=== PATIENT | female | born 1930 | race Caucasian/White ===

== ENCOUNTER 2018-03-19 08:15 | Inpatient (IN) | payer BC ==
--- NOTE | 2018-03-19 09:05 | PDOC ---
Attending Attestation - HPI HPI: 03/19/18 09:31 CC: S/p fall HPI: The patient is a 87 year old female, with a significant past medical history of Afib (s/p pacemaker on Eliquis), sciatica, neuropathy, CAD, DM, HTN, and HLD, who presents to the emergency department s/p fall with, pain to the right hip and left wrist. As per patient, she was getting up out of bed this morning when she felt week in her bilateral lower extremities falling and subsequently hitting her head, right hip, and lacerating her left wrist. At this time, she experienced urinary incontinence is unaware if she lost consciousness. She denies any tongue biting. She denies recent fevers, chills, or dizziness. She denies recent nausea, vomit, diarrhea or constipation. She denies recent dysuria, frequency, urgency or hematuria. She denies recent chest pain or shortness of breath. Allergies: NKDA Past surgical history: S/p pacemaker. Hysterectomy. Social history: Nonsmoker. Denies EtOH use and recreational drug use. Primary Care Physician: Dr. Pinzon Commercial Banker: Dr. Khan - Physicial Exam PE: 03/19/18 11:23 Exam: Vitals: Triage Vital signs reviewed +General Appearance: Generalized weakness. no acute distress, well developed, Head: Atraumatic, normocephalic Nose: No nasal congestion Throat: Mucous membranes moist, Neck: Supple;No Nuchal rigidity Chest Wall: Nontender +Cardiac: Irregularly irregular, no murmurs, no rubs, no gallops, Lungs: Clear to auscultation bilateral, good air movement bilaterally, Abdomen: Soft, nondistended, normal bowel sounds, nontender to palpation Rectal: Exam deferred Extremities: Right hip tenderness. no cyanosis, clubbing, or edema +Skin: Semicircular laceration to the left wrist with bruising. Warm and dry, no rashes, no petechiae Neuro: AOX3; Cranial Nerves 2-12 grossly intact, Strength intact to all extremities, Sensation intact to all extremities Psych: normal mood, normal affect - Medical Decision Making 03/19/18 11:20 87 year old female with history of Afib (s/p pacemaker on Eliquis), CAD, DM, HTN , and HLD reports to the ED s/p fall with weakness, right hip pain, and left wrist laceration. Plan is to: CT- head and c-spine Pain meds Xray-wrist and hip Reassess Admit 11:30am Call placed to Dr. Pinzon's answering service, awaiting for Dr. Paz consulting practice director admitting doctor for patient's PCP. <Jeancarlos Ram - Last Filed: 03/19/18 11:31> - Resident Resident Name: Jammie Marinelli - ED Attending Attestation I have performed the following: I have examined & evaluated the patient, The case was reviewed & discussed with the resident, I agree w/resident's findings & plan, Exceptions are as noted - HPI HPI: 03/19/18 13:40 79 years old past medical history significant for a pad pacemaker on Alquist, right-sided sciatica neuropathy CAD diabetes hypertension hyperlipidemia presents with fall. Yesterday patient was complaining of increased pain to her right hip where she has known sciatica. This morning when she got up try to ambulate placed weight on right foot and it is believed secondary to pain fell injured her left wrist hit her head but is presenting predominately with generalized weakness was unable to get up from floor Laboratory analysis notable for urinary tract infection no acute findings on x- rays or imaging laceration repaired. See resident note. Given inability to transfer secondary to generalized weakness will admit the hospital for treatment of UTI hydration and further management. - Medical Decision Making 03/19/18 14:03 Urinalysis grossly positive head CT cervical spine CT with no acute pathology no acute pathology noted on hip x-ray Wrist x-ray not officially read there may be a subtle lucency patient placed in volar splint in case a fracture laceration repaired with sutures See resident note Given the patient's generalized weakness and inability to transfer from [facility] UTI increasing hip discomfort we will admit to medicine for further management. <Yan Riggs - Last Filed: 03/19/18 14:04> Heart Score/ECG Review - ECG Impressions Comment:: 03/19/18 14:04 EKG performed at 1020. Demonstrates atrial fibrillation no ST elevations or T- wave inversions. Interpreted by me. <Yan Riggs - Last Filed: 03/19/18 14:04> Attestations - Attestations 03/19/18 09:31 Documentation prepared by Jeancarlos Ram, acting as lead medical technologist for Yan Riggs MD. <Jeancarlos Ram - Last Filed: 03/19/18 11:31>
[2018-03-19 09:30] LABS: BASO % 0.6 % (0-2.0); EOS % 0.3 % (0-4.5); HEMATOCRIT 41.7 % (32.4-45.2); HEMOGLOBIN 13.9 GM/dL (10.7-15.3); MCH 29.1 pg (25.7-33.7); MCHC 33.4 g/dl (32.0-36.0); MEAN CELL VOLUME 87.1 fl (80-96); MEAN PLT VOLUME 9.9 fl (7.5-11.1); NEUT % 74.1 % (42.8-82.8); PLATELET COUNT 137 K/MM3 (134-434); RBC 4.79 M/mm3 (3.60-5.2); RDW 14.3 % (11.6-15.6); WHITE BLOOD COUNT 8.2 K/mm3 (4.0-10.0)
[2018-03-19 09:34] LABS: URINE APPEARANCE CLOUDY; URINE BILIRUBIN NEGATIVE (<2.0 mg/dL); URINE COLOR YELLOW; URINE GLUCOSE (UA) 1+ (NEGATIVE); URINE KETONE NEGATIVE (NEGATIVE); URINE LEUK ESTERASE 3+ (NEGATIVE); URINE NITRITE POSITIVE (NEGATIVE); URINE PROTEIN 1+ (NEGATIVE); URINE UROBILINOGEN NEGATIVE mg/dL (0.2-1.0)
--- NOTE | 2018-03-19 09:39 | PDOC ---
History of Present Illness - General Chief Complaint: Injury Stated Complaint: Injury Time Seen by Provider: 03/19/18 08:26 History Source: Patient, Sibling - History of Present Illness Initial Comments: 03/19/18 09:29 87F w/ pmhx of DM, HTN, HLD, DVT, A. fib s/p pacemaker placement, CAD presents to the ED s/p fall. Pt is present with sister at bedside. Pt states that at 6am she was getting up from her bed to go to the bathroom when she had fallen because of b/l leg weakness. She admits to hitting the back of her head, her R side of the body as well as her L wrist. She denies losing consciousness. After she had fallen, she called her sister for help because she was not able to get up herself. She denies any mechanical fall, headaches, dizziness, vision changes , chest pain, sob, abd pain, urinary/bowel symptoms, blood in urine/stool. Of note, per pt's sister, pt has a hx of multiple falls in the past. She was seen at [facility] a couple of months ago due to a fall. Additionally, the sister states she falls 1-2x/month, but is usually able to get up herself. She has been living alone in her house over the past month as her has been at rehab. PCP: Dr. Pinzon Cardio: Dr. Khan PMHx: DM, HTN, HLD, A. fib (s/p pacemaker on Eliquis), CAD PSHx: Hysterectomy, pacemaker FHx: Mother and sister- Breast cx Social: Denies tobacco, rec drug use; social drinker, Denies recent travel PE Gen: AAOx3 (person, place time), NAD HEENT: Atraumatic, EOMI, ROLO. Dry mucus membranes, dried blood noted in oral mucosa. Posterior neck point tenderness. Lungs: CTA B/L. Symmetric chest rise. Heart: RRR, normal S1, S2. No murmurs noted. Abd: Soft, NT/ND. +BS in all 4 Qs. No bruits/masses noted. MSK: 3x1cm laceration noted on dorsum of L wrist, bloody. 1+ dorsalis pedis pulses b/l. 2+ radial pulses b/l. Extremities: 5/5 strength b/l UE. 5/5 strength LLE. 3/5 strength RLE. Neuro: Facial symmetry noted. Facial muscles intact. B/l sensation in face and u /l b/l extremities intact. Unable to assess gait. Timing/Duration: 1 hour NIH Stroke Scale - Last Known Well Date/Time & Onset Date Last Known Well: 03/18/18 - Initial Evaluation Level of consciousness: Alert Ask patient the month and their age: Answers both correctly Ask patient to open & close eyes; make fist and let go: Obeys both correctly Best gaze (horizontal eye movement): Normal Visual field testing: No visual field loss Facial paresis (Show teeth/raise eyebrows/close eyes tight): Normal symmetrical movement Motor Function: Left Arm: Normal Motor Function: Right Arm: Normal (extends arm 90 (or 45) degrees for 10 seconds without drift Motor Function: Left Leg: Normal (extends leg 30 degrees for 5 seconds without drift) Motor Function: Right Leg: Some effort against gravity Limb Ataxia: No ataxia Sensory(Use pinprick test arms,legs,trunk,face/side to side): Normal Best language (Describe picture, name items, read sentences): No Aphasia Dysarthria (read several words): Mild to moderate slurring of words Extinction and Inattention: No abnormality - Total Score NIH Stroke Scale Score: 3 Past History - Past Medical History Allergies/Adverse Reactions: Allergies Allergy/AdvReac Type Severity Reaction Status Date / Time No Known Drug Allergies Allergy Verified 03/19/18 08:39 Home Medications: Ambulatory Orders Amlodipine Besylate [Norvasc -] 10 mg PO DAILY #30 tablet 01/01/15 Apixaban [Eliquis] 2.5 mg PO BID 03/19/18 Atorvastatin Ca [Lipitor] 40 mg PO HS 03/19/18 Carbidopa/Levodopa [Carbidopa-Levodopa 25-100 Tab] 1 each PO TID 03/19/18 Insulin Glargine,Hum.rec.anlog [Lantus] 30 unit SQ HS 03/19/18 Metoprolol Succinate [Toprol XL -] 75 mg PO BID 03/19/18 Oxybutynin Chloride 5 mg PO BID 03/19/18 Sitagliptin Phosphate [Januvia] 50 mg PO DAILY 03/19/18 COPD: No Diabetes: Yes HTN: Yes Hypercholesterolemia: Yes - Immunization History Immunization Up to Date: Yes - Suicide/Smoking/Psychosocial Hx Smoking Status: No Smoking History: Never smoked Have you smoked in the past 12 months: No Number of Cigarettes Smoked Daily: 0 Hx Alcohol Use: No Drug/Substance Use Hx: No Substance Use Type: None, Alcohol Hx Substance Use Treatment: No Review of Systems - Review of Systems Able to Perform ROS?: Yes Is the patient limited Greenlandic proficient: No Constitutional: Yes: Weakness. No: Chills, Fever HEENTM: Yes: Cataracts. No: Blurred Vision, Recent change in vision, Double Vision Respiratory: No: Orthopnea, Shortness of Breath, SOB with Exertion, SOB at Rest Cardiac (ROS): No: Chest Pain ABD/GI: Yes: Constipated. No: Diarrhea, Nausea, Vomiting *Physical Exam - Vital Signs Last Vital Signs Temp Pulse Resp BP Pulse Ox 97.5 F L 77 18 160/99 98 03/19/18 08:41 03/19/18 08:41 03/19/18 08:41 03/19/18 08:41 03/19/18 08:41 ED Treatment Course - LABORATORY CBC & Chemistry Diagram: 03/19/18 09:00 03/19/18 09:00 Medical Decision Making - Medical Decision Making S/P Fall, ddx includes infection vs. toxic metabolic syndrome vs. sciatica vs. stroke -Head CT, CT C-spine, L wrist xray, R hip/pel xray, CMP, Urine cx, Mag, U/A, EKG 03/19/18 10:22 -Head CT neg for acute IC pathology. -C-spine showed no gross fx or subluxation; R facet hypertrophy at C4-C5, C5-C6 , C6-C7. Prominent dense calcified plaques at the common carotid bifurcation, bilaterally. -R hip xray showed no sign of gross fracture or subluxation, no sign of blastic or lytic changes. NIHSS 3. Pt has no facial droop, but demonstrates weakness in R leg. Per daughter, pt has hx of sciatica and generalized leg weakness, was recently given Sinemet by pcp. 03/19/18 10:58 U/A showed 3+ LE, 52 WBCs, Ceftriaxone 1 gm given to treat UTI. Contacted Dr. Pinzon to admit patient, awaiting call. 03/19/18 11:[address] Pinzon, made aware of patient. Will admit to inpatient med-surg. 03/19/18 12:12 *DC/Admit/Observation/Transfer Diagnosis at time of Disposition: Laceration of wrist, left Qualifiers: Encounter type: initial encounter Qualified Code(s): S61.512A - Laceration without foreign body of left wrist, initial encounter - Referrals - Patient Instructions - Post Discharge Activity
[2018-03-19 09:40] LABS: INR 1.11 (0.83-1.09); PROTHROMBIN TIME (PATIENT) 13.1 SEC (9.7-13.0)
[2018-03-19 09:43] LABS: ACTIVATED PTT 27.3 SECONDS (25.2-36.5)
[2018-03-19 09:55] LABS: EPI CELLS RARE /HPF (FEW); URINE BACTERIA MANY /hpf (NONE SEEN)
[2018-03-19 10:38] LABS: ALK PHOS 72 U/L (45-117); ANION GAP 11 MMOL/L (8-16); BILIRUBIN,TOTAL 0.6 mg/dL (0.2-1); BLOOD UREA NITROGEN 18 mg/dL (7-18); CALCIUM 8.3 mg/dL (8.5-10.1); CHLORIDE 111 mmol/L (98-107); CO2 24 mmol/L (21-32); CREATININE 0.9 mg/dL (0.55-1.3); GLUCOSE,RANDOM 196 mg/dL (74-106); MAGNESIUM 1.6 mg/dL (1.8-2.4); POTASSIUM 3.8 mmol/L (3.5-5.1); SGOT/AST 21 U/L (15-37); SGPT/ALT 26 U/L (13-61); SODIUM 146 mmol/L (136-145); TOT PROT 6.5 g/dl (6.4-8.2)
[2018-03-19] MEDS ORDERED: ACETAMINOPHEN 325 MG TABLET (FP) PO ONE (10:59)
[2018-03-19] MEDS ORDERED: ACETAMINOPHEN 325 MG TABLET (FP) ONE (11:12)
[2018-03-19] MEDS ORDERED: CEFTRIAXONE 1,000 MG in DEXTROSE 5%-WATER - 50 ML IVPB ONE (11:20)
[2018-03-19] MEDS ORDERED: CEFTRIAXONE 1 GM/50 ML BAG ONE (11:42)
[2018-03-19] MEDS ORDERED: DIPHTH,PERTUSS(ACELL),TET 0.5 ML DISP.SYRIN IM ONE (11:51)
--- NOTE | 2018-03-19 13:13 | PDOC ---
*Physical Exam - Vital Signs Last Vital Signs Temp Pulse Resp BP Pulse Ox 97.5 F L 77 18 160/99 98 03/19/18 08:41 03/19/18 08:41 03/19/18 08:41 03/19/18 08:41 03/19/18 08:41 ED Treatment Course - LABORATORY CBC & Chemistry Diagram: 03/19/18 09:00 03/19/18 09:00 - ADDITIONAL ORDERS Additional order review: Laboratory Results 03/19/18 03/19/18 03/19/18 09:05 09:00 09:00 PT with INR 13.10 H INR 1.11 H PTT (Actin FS) 27.3 Sodium 146 H Potassium 3.8 Chloride 111 H Carbon Dioxide 24 Anion Gap 11 BUN 18 Creatinine 0.9 Creat Clearance w eGFR 59.09 Random Glucose 196 H Calcium 8.3 L Magnesium 1.6 L Total Bilirubin 0.6 AST 21 ALT 26 Alkaline Phosphatase 72 Total Protein 6.5 Albumin 3.0 L Urine Color Yellow Urine Appearance Cloudy Urine pH 5.0 Ur Specific Bland 1.017 Urine Protein 1+ H Urine Glucose (UA) 1+ H Urine Ketones Negative Urine Blood 2+ H Urine Nitrite Positive Urine Bilirubin Negative Urine Urobilinogen Negative Ur Leukocyte Esterase 3+ H Urine WBC (Auto) 52 Urine RBC (Auto) 3 Ur Epithelial Cells Rare Urine Bacteria Many 03/19/18 09:00 RBC 4.79 MCV 87.1 MCHC 33.4 RDW 14.3 MPV 9.9 Neutrophils % 74.1 Lymphocytes % 18.0 Monocytes % 7.0 Eosinophils % 0.3 D Basophils % 0.6 - Medications Given in the ED: ED Medications Discontinued Medications Generic Name Dose Route Start Last Admin Trade Name Maneq PRN Reason Stop Dose Admin Acetaminophen 650 mg 03/19/18 10:59 03/19/18 11:40 Tylenol - PO 03/19/18 11:00 650 mg ONCE ONE Administration Diphtheria/Tetanus/Acell Pertussis 0.5 ml 03/19/18 11:51 03/19/18 13:06 Boostrix - IM 03/19/18 11:52 0.5 ml .ONCE ONE Administration Ceftriaxone Sodium 1,000 mg/ 50 mls @ 100 mls/hr 03/19/18 11:20 03/19/18 11: 46 Dextrose IVPB 03/19/18 11:49 100 mls/hr ONCE ONE Administration Medical Decision Making - Medical Decision Making I completed the laceration repair on the dorsal L wrist. 11 sutures were placed using sterile technique, the wound was dressed, and the bleeding controlled. Please see procedure note. 03/19/18 13:24 *DC/Admit/Observation/Transfer Diagnosis at time of Disposition: Laceration of wrist, left Qualifiers: Encounter type: initial encounter Qualified Code(s): S61.512A - Laceration without foreign body of left wrist, initial encounter - Referrals - Patient Instructions - Post Discharge Activity Procedures - Laceration/Wound Repair Left Dorsal Wrist Wound Length: 2.6 to 5.0 cm Wound Explored: clean Wound's Depth, Shape: superficial, flap Irrigated w/ Saline: Yes Betadine Prep: Yes Anesthesia: 1% Lidocaine w/ Epi Amount of Anesthetic (ccs): 4 Wound Debrided: minimal Wound Repaired With: Sutures Suture Size/Type: 4:0 Number of Sutures: 11 Layer Closure: No Sterile Dressing Applied: Yes Splint Applied: No Sling Applied: No Progress: Strength, sensation, and pulses intact before and after suture placement. Wound is cleaned with sterile dressing and bacitracin applied. Bleeding well controlled. 03/19/18 13:28
[2018-03-19] MEDS ORDERED: MAGNESIUM SULF 50% (8.12 MEQ/2 ML-1 GM VIAL) IVPB ONE (13:45)
--- NOTE | 2018-03-19 15:48 | CON.ID ---
Consult Consult Specialty:: infectious disease Referred by:: marcin Reason for Consultation:: UTI - History of Present Illness Chief Complaint: felt weak and fell History of Present Illness: not clear if she had LOC no fevers or chills no dysuria currently living alone is in SNF - History Source History Provided By: Patient, Medical Record Limitations to Obtaining History: Clinical Condition - Past Medical History TELEPHONE STATION INSTALLER: Yes: Peripheral Neuropathy, Parkinson's, Other (sciatica) Cardio/Vascular: Yes: AFIB, CAD, HTN, Hyperlipdemia Endocrine: Yes: Diabetes Mellitus - Past Surgical History Past Surgical History: Yes: Hysterectomy, Permanent Pacemaker - Alcohol/Substance Use Hx Alcohol Use: No - Smoking History Smoking history: Never smoked Have you smoked in the past 12 months: No Aproximately how many cigarettes per day: 0 - Social History Usual Living Arrangement: With Spouse ADL: Independent History of Recent Travel: No Home Medications - Allergies Allergies/Adverse Reactions: Allergies Allergy/AdvReac Type Severity Reaction Status Date / Time No Known Drug Allergies Allergy Verified 03/19/18 08:39 - Home Medications Home Medications: Ambulatory Orders Amlodipine Besylate [Norvasc -] 10 mg PO DAILY #30 tablet 01/01/15 Apixaban [Eliquis] 2.5 mg PO BID 03/19/18 Atorvastatin Ca [Lipitor] 40 mg PO HS 03/19/18 Carbidopa/Levodopa [Carbidopa-Levodopa 25-100 Tab] 1 each PO TID 03/19/18 Insulin Glargine,Hum.rec.anlog [Lantus] 30 unit SQ HS 03/19/18 Metoprolol Succinate [Toprol XL -] 75 mg PO BID 03/19/18 Oxybutynin Chloride 5 mg PO BID 03/19/18 Sitagliptin Phosphate [Januvia] 50 mg PO DAILY 03/19/18 Family Disease History - Family Disease History Family History: Unable to Obtain Review of Systems - Review of Systems Constitutional: denies: Chills, Fever HENT: reports: No Symptoms Cardiovascular: denies: Chest Pain Respiratory: denies: Cough Genitourinary: denies: Burning, Discharge, Dysuria, Flank Pain Physical Exam Vital Signs: Vital Signs Temperature 97.8 F 03/19/18 15:05 Pulse Rate 84 03/19/18 15:05 Respiratory Rate 18 03/19/18 15:05 Blood Pressure 153/85 03/19/18 15:05 O2 Sat by Pulse Oximetry (%) 97 03/19/18 15:05 Constitutional: Yes: No Distress, Calm Eyes: Yes: Conjunctiva Clear HENT: Yes: Atraumatic, Normocephalic Neck: Yes: Supple Cardiovascular: Yes: Regular Rate and Rhythm Respiratory: Yes: Regular Gastrointestinal: Yes: Normal Bowel Sounds Musculoskeletal: Yes: WNL Extremities: Yes: WNL Edema: No Psychiatric: Yes: Alert Labs: CBC, BMP 03/19/18 09:00 03/19/18 09:00 cultures pending Imaging - Results Chest X-ray: Report Reviewed, Image Reviewed Problem List - Problems (1) Frequent falls Code(s): R29.6 - REPEATED FALLS (2) UTI (urinary tract infection) Code(s): N39.0 - URINARY TRACT INFECTION, SITE NOT SPECIFIED Assessment/Plan no fevers or chills noted pyurina awake and alert approppriate continue rocephin until cultures are back- if negative can d/c
[2018-03-19] MEDS: INSULIN SLIDING SCALE (NOVOLOG) 1 VIAL SQ SCH ×2 (16:35→21:25)
[2018-03-19] MEDS: CARBIDOPA/LEVODOPA 25/100 TABLET (FP) PO SCH ×2 (17:33→21:23)
[2018-03-19] MEDS ORDERED: INSULIN (NOVOLOG) ASPART 100 UNITS/ML 10ML VIAL ONE (21:01)
[2018-03-19] MEDS: APIXABAN 2.5 MG TABLET PO SCH (21:24)
[2018-03-19] MEDS: OXYBUTYNIN CHLORIDE 5 MG TABLET PO SCH (21:24)
[2018-03-19] MEDS: INSULIN (LEVEMIR) 100 UNITS/ML UNITS SQ SCH (21:24)
[2018-03-19] MEDS: ATORVASTATIN CA 20 MG TABLET (FP) PO SCH (21:24)
[2018-03-20] MEDS: ACETAMINOPHEN 325 MG TABLET (FP) PO PRN ×3 (00:13→21:11)
[2018-03-20] MEDS: sitaGLIPtin PHOSPHATE 50 MG TABLET PO SCH (06:29)
[2018-03-20] MEDS: INSULIN SLIDING SCALE (NOVOLOG) 1 VIAL SQ SCH ×4 (06:29→21:14)
[2018-03-20] MEDS: CARBIDOPA/LEVODOPA 25/100 TABLET (FP) PO SCH ×3 (06:29→21:09)
[2018-03-20 08:36] LABS: HEMATOCRIT 38.9 % (32.4-45.2); HEMOGLOBIN 12.7 GM/dL (10.7-15.3); LYMPH % 28.8 % (8-40); MCH 28.5 pg (25.7-33.7); MCHC 32.7 g/dl (32.0-36.0); MEAN CELL VOLUME 87.3 fl (80-96); MEAN PLT VOLUME 10.4 fl (7.5-11.1); MONO % 9.4 % (3.8-10.2); NEUT % 59.8 % (42.8-82.8); PLATELET COUNT 140 K/MM3 (134-434); RBC 4.46 M/mm3 (3.60-5.2); RDW 14.3 % (11.6-15.6); WHITE BLOOD COUNT 6.1 K/mm3 (4.0-10.0)
[2018-03-20 09:11] LABS: ALBUMIN 2.6 g/dl (3.4-5.0); ALK PHOS 67 U/L (45-117); ANION GAP 7 MMOL/L (8-16); BILIRUBIN,TOTAL 0.6 mg/dL (0.2-1); BLOOD UREA NITROGEN 17 mg/dL (7-18); CALCIUM 8.1 mg/dL (8.5-10.1); CHLORIDE 112 mmol/L (98-107); CO2 24 mmol/L (21-32); CREATININE 0.9 mg/dL (0.55-1.3); GLUCOSE,RANDOM 99 mg/dL (74-106); MAGNESIUM 1.9 mg/dL (1.8-2.4); POTASSIUM 3.6 mmol/L (3.5-5.1); SGOT/AST 18 U/L (15-37); SGPT/ALT 8 U/L (13-61); SODIUM 142 mmol/L (136-145); TOT PROT 5.9 g/dl (6.4-8.2)
[2018-03-20] MEDS ORDERED: cefTRIAXone SODIUM 1 GM VIAL ONE (09:41)
[2018-03-20] MEDS ORDERED: DEXTROSE 5%-WATER - 50 ML IVPB ONE (09:42)
[2018-03-20] MEDS: CEFTRIAXONE 1 GM in DEXTROSE 5%-WATER - 50 ML IVPB SCH (09:54)
[2018-03-20] MEDS: amLODIPine BESYLATE 10 MG TABLET (FP) PO SCH (09:55)
[2018-03-20] MEDS: OXYBUTYNIN CHLORIDE 5 MG TABLET PO SCH ×2 (09:55→21:09)
[2018-03-20] MEDS: metoPROLOL SUCCINATE 25 MG TAB.SR.24H (FP) PO SCH (09:55)
[2018-03-20] MEDS: APIXABAN 2.5 MG TABLET PO SCH ×2 (09:56→21:09)
--- NOTE | 2018-03-20 13:47 | PN ---
Progress Note, Physician Chief Complaint: Frequent falls History of Present Illness: NAD Seen by ID On IV abx UC negative- d/c abx afebrile WBC normal - Current Medication List Current Medications: Active Medications Acetaminophen (Tylenol -) 650 mg PO Q6H PRN PRN Reason: PAIN OR FEVER Last Admin: 03/20/18 10:33 Dose: 650 mg Amlodipine Besylate (Norvasc -) 10 mg PO DAILY [facility] Last Admin: 03/20/18 09:55 Dose: 10 mg Apixaban (Eliquis -) 2.5 mg PO BID [facility] Last Admin: 03/20/18 09:56 Dose: 2.5 mg Atorvastatin Calcium (Lipitor -) 40 mg PO HS [facility] Last Admin: 03/19/18 21:24 Dose: 40 mg Carbidopa/Levodopa (Sinemet 25/100 -) 1 each PO TID [facility] Last Admin: 03/20/18 06:29 Dose: 1 each Ceftriaxone Sodium 1 gm/ (Dextrose) 50 mls @ 100 mls/hr IVPB DAILY [facility]; Protocol Last Admin: 03/20/18 09:54 Dose: 100 mls/hr Insulin Aspart (Novolog Vial Sliding Scale -) 1 vial SQ ACHS [facility]; Protocol Last Admin: 03/20/18 11:52 Dose: 2 units Insulin Detemir (Levemir Vial) 30 units SQ HS [facility] Last Admin: 03/19/18 21:24 Dose: 30 units Metoprolol Succinate (Toprol Xl -) 75 mg PO DAILY [facility] Last Admin: 03/20/18 09:55 Dose: 75 mg Oxybutynin Chloride (Ditropan -) 5 mg PO BID [facility] Last Admin: 03/20/18 09:55 Dose: 5 mg Sitagliptin Phosphate (Januvia -) 50 mg PO 0700 [facility] Last Admin: 03/20/18 06:29 Dose: 50 mg - Objective Vital Signs: Vital Signs Temperature 97.5 F L 03/20/18 10:40 Pulse Rate 90 03/20/18 10:40 Respiratory Rate 22 H 03/20/18 10:40 Blood Pressure 136/67 03/20/18 10:40 O2 Sat by Pulse Oximetry (%) 95 03/20/18 10:40 Constitutional: Yes: Well Nourished, No Distress, Calm Cardiovascular: Yes: Regular Rate and Rhythm Respiratory: Yes: Regular Gastrointestinal: Yes: Normal Bowel Sounds, Soft Musculoskeletal: Yes: Muscle Weakness Edema: No Peripheral Pulses WNL: Yes Neurological: Yes: Alert, Oriented Psychiatric: Yes: Alert, Oriented Labs: CBC, BMP 03/20/18 07:16 03/20/18 07:16 INR, PTT INR 1.11 (0.83-1.09) H 03/19/18 09:00 Problem List - Problems (1) Weakness Assessment/Plan: -Physicatry and Neurology consult -EMG BLLE -Lumbar spine MRI -B12, Thyroid profile okay Code(s): R53.1 - WEAKNESS (2) Frequent falls Assessment/Plan: CT head upon admission negative -Physicatry and Neurology consult -EMG BLLE -Lumbar spine MRI w/o contrast ordered -B12, Thyroid profile okay -Seen by Cardiology -U/S carotid unremarkable -Echo pending -Previous MRI in 2015: L3-L4. Chronic discogenic disease, degenerative changes, compromising the spinal canal, bilateral neural foramina (let > right) Clinically correlate with radiculopathy in the distribution of the bilateral L3 nerve roots. -Previous CT lumbar spine in 2011: Mild levoscoliosis of the lumbar spine with likely large hemangioma within L3 vertebral body. Mild anterior wedging/compression of L4 vertebral body without gross subluxation or retropulsion of its posterior margin. Mild to moderate disc bulge at L3-L4 level with moderate degenerative central spinal canal stenosis , moderate narrowing of the right and mild narrowing of the left foramen. Code(s): R29.6 - REPEATED FALLS (3) Lumbar radiculopathy Assessment/Plan: -Physicatry and Neurology consult -EMG BLLE -Lumbar spine MRI Code(s): M54.16 - RADICULOPATHY, LUMBAR REGION (4) Diabetes Assessment/Plan: -BGM ACHS -Diabetic diet -Increase Januvia to 100 mg po daily -On levemir and Novolog sliding scale -Endocrinology consult -RD consult Code(s): E11.9 - TYPE 2 DIABETES MELLITUS WITHOUT COMPLICATIONS (5) Afib Assessment/Plan: -On eliquis 2.5 mg po BID -Seen by Cardiology -Also has PPM Code(s): I48.91 - UNSPECIFIED ATRIAL FIBRILLATION (6) HTN (hypertension) Assessment/Plan: -Low sodium diabetic diet Code(s): I10 - ESSENTIAL (PRIMARY) HYPERTENSION Assessment/Plan see problem list Physical therapy
[2018-03-20] MEDS: GABAPENTIN 100 MG CAPSULE (FP) PO SCH ×2 (14:20→21:09)
--- NOTE | 2018-03-20 15:05 | EKG ---
Test Reason : Blood Pressure : / mmHG Vent. Rate : 072 BPM Atrial Rate : 066 BPM P-R Int : 000 ms QRS Dur : 072 ms QT Int : 430 ms P-R-T Axes : 000 -15 -02 degrees QTc Int : 470 ms UNDETERMINED RHYTHM Confirmed by MD Felix Edward ([id number]) on 03/20/2018 3:05:47 PM Referred By: Confirmed By:Wilfrido Felix MD
[2018-03-20] MEDS ORDERED: INSULIN (NOVOLOG) ASPART 100 UNITS/ML 10ML VIAL ONE (15:32)
[2018-03-20] MEDS: ATORVASTATIN CA 20 MG TABLET (FP) PO SCH (21:09)
[2018-03-20] MEDS: INSULIN (LEVEMIR) 100 UNITS/ML UNITS SQ SCH (21:18)
[2018-03-20] MEDS ORDERED: PT OWN MED DRAWER 7, Y5N ONE (22:10)
[2018-03-20] MEDS: CLOTRIMAZOLE/BETAMET DIPROP 15 GM TUBE TP SCH (22:11)
[2018-03-21] MEDS: INSULIN SLIDING SCALE (NOVOLOG) 1 VIAL SQ SCH ×4 (06:28→22:37)
[2018-03-21] MEDS: sitaGLIPtin PHOSPHATE 50 MG TABLET PO SCH (06:28)
[2018-03-21] MEDS: GABAPENTIN 100 MG CAPSULE (FP) PO SCH ×3 (06:28→22:35)
[2018-03-21] MEDS: CARBIDOPA/LEVODOPA 25/100 TABLET (FP) PO SCH ×3 (06:28→22:35)
[2018-03-21 07:29] LABS: CHOLESTEROL 101 mg/dL (50-200); HDL CHOLESTEROL 34 mg/dL (40-60); TRIGLYCERIDES 161 mg/dL (0-150)
[2018-03-21] MEDS ORDERED: PT OWN MED DRAWER 7, Y5N ONE (09:35)
[2018-03-21] MEDS ORDERED: cefTRIAXone SODIUM 1 GM VIAL ONE (09:35)
[2018-03-21] MEDS ORDERED: DEXTROSE 5%-WATER - 50 ML IVPB ONE (09:35)
--- NOTE | 2018-03-21 09:35 | CON.CARD ---
Consult Consult Specialty:: cardio - History of Present Illness Chief Complaint: fall History of Present Illness: 87 F here s/p fall. stood up at home and bilateral legs felt weak--fell to ground. thinks she hit her head. CHRONIC LE WEAKNESS FOR MANY MONTHS TO ? > 1 YR as outpatient, seeing dr burch for this. cannot recall when last fall was but says this is not first--not certain any recent falls prior to this. CT head in ER no acute pathology incl no bleed denies cp, sob, palpitations, syncope PMH: CAD Afib PPM Ao stenosis HTN HPL DM - Past Medical History Cardio/Vascular: Yes: HTN, Hyperlipdemia - Past Surgical History Past Surgical History: Yes: None - Alcohol/Substance Use Hx Alcohol Use: No - Smoking History Smoking history: Never smoked Have you smoked in the past 12 months: No Aproximately how many cigarettes per day: 0 - Social History Usual Living Arrangement: With Child ADL: Independent Home Medications - Allergies Allergies/Adverse Reactions: Allergies Allergy/AdvReac Type Severity Reaction Status Date / Time No Known Drug Allergies Allergy Verified 03/19/18 08:39 - Home Medications Home Medications: Ambulatory Orders Amlodipine Besylate [Norvasc -] 10 mg PO DAILY #30 tablet 01/01/15 Apixaban [Eliquis] 2.5 mg PO BID 03/19/18 Atorvastatin Ca [Lipitor] 40 mg PO HS 03/19/18 Carbidopa/Levodopa [Carbidopa-Levodopa 25-100 Tab] 1 each PO TID 03/19/18 Insulin Glargine,Hum.rec.anlog [Lantus] 30 unit SQ HS 03/19/18 Metoprolol Succinate [Toprol XL -] 75 mg PO BID 03/19/18 Oxybutynin Chloride 5 mg PO BID 03/19/18 Sitagliptin Phosphate [Januvia] 50 mg PO DAILY 03/19/18 Family Disease History - Family Disease History Family History: Denies (no known cmp) Review of Systems - Review of Systems Constitutional: denies: Chills, Fever Eyes: denies: Eye Pain HENT: denies: Nasal Congestion Neck: denies: Stiffness Cardiovascular: denies: Palpitations Respiratory: denies: Orthopnea, PND Gastrointestinal: denies: Diarrhea, Rectal Bleeding Genitourinary: denies: Burning, Hematuria Musculoskeletal: denies: Muscle Pain Integumentary: denies: Rash Neurological: denies: Numbness, Seizure, Syncope Endocrine: denies: Excessive Sweating Hematology/Lymphatic: denies: Excessive Bleeding Vital Signs: Vital Signs Temperature 98.3 F 03/21/18 06:00 Pulse Rate 77 03/21/18 06:00 Respiratory Rate 18 03/21/18 06:00 Blood Pressure 142/75 03/21/18 06:00 O2 Sat by Pulse Oximetry (%) 95 03/20/18 10:40 Constitutional: Yes: Well Nourished, No Distress Eyes: No: Sclera Icterus HENT: No: Nasal Congestion Neck: No: Decreased ROM Respiratory: Yes: CTA Bilaterally. No: Accessory Muscle Use, Rales, Wheezes Gastrointestinal: Yes: Normal Bowel Sounds. No: Distention, Hepatomegaly, Palpable Mass, Tenderness Cardiovascular: Yes: Regular Rate and Rhythm JVD: No Carotid Bruit: No PMI: Non-Displaced Heart Sounds: Yes: S1, S2. No: Gallop Murmur: Yes: Systolic Murmur (3/6 NAHMOY LUSB no S2 split heard). No: Diastolic Murmur Musculoskeletal: Yes: Other (No kyphosis) Extremities: No: Cold, Cyanosis Edema: No Peripheral Pulses: 2+ Left Carotid, 2+ Right Carotid, 2+ Left Doralis Pedis, 2+ Right Dorsalis Pedis Integumentary: No: Jaundice Neurological: Yes: Alert, Oriented (x3) Psychiatric: No: Agitated - Other Data Labs, Other Data: CBC, BMP 03/20/18 07:16 03/20/18 07:16 INR, PTT INR 1.11 (0.83-1.09) H 03/19/18 09:00 Laboratory Tests 12/22/14 12/22/14 12/22/14 12:47 13:44 13:44 WBC Hgb Plt Count Sodium Potassium Carbon Dioxide BUN 44 H Creatinine 1.8 H Hemoglobin A1c % AST ALT Troponin I 2.04 H* 1.99 H* Triglycerides Cholesterol Total LDL Cholesterol HDL Cholesterol TSH 1.74 D 12/22/14 12/23/14 03/19/18 16:15 05:20 15:45 WBC Hgb Plt Count Sodium 142 Potassium 4.2 Carbon Dioxide BUN 39 H Creatinine 1.3 D Hemoglobin A1c % AST ALT Troponin I 1.84 H* 0.02 Triglycerides Cholesterol Total LDL Cholesterol HDL Cholesterol TSH 03/20/18 03/20/18 03/21/18 07:16 07:16 05:55 WBC 6.1 Hgb 12.7 Plt Count 140 Sodium 142 Potassium 3.6 Carbon Dioxide 24 BUN 17 Creatinine 0.9 Hemoglobin A1c % AST 18 ALT 8 L Troponin I < 0.02 Triglycerides 161 H Cholesterol 101 Total LDL Cholesterol 53 HDL Cholesterol 34 L TSH 03/21/18 05:55 WBC Hgb Plt Count Sodium Potassium Carbon Dioxide BUN Creatinine Hemoglobin A1c % 9.7 H AST ALT Troponin I Triglycerides Cholesterol Total LDL Cholesterol HDL Cholesterol TSH Assessment/Plan ECG: afib, ? regularized s/p fall: -chronic bilat LE weakness--NOT NEW (and did not improve with prolonged holiday off statin in past) -per dr burch's team afib: -? regularized afib on ECG from ER. no bradycardia. pt not on digoxin at home as per my recollection, and not on home med list in ER -has PPM in place to prevent bradycardia -cont home toprol regimen -CHADS VASC 6, hi risk for stroke. on eliquis at home--dose needs confirmation ( 5mg bid dose indicated here, not 2.5). -states she hit her head, CT head neg, no neuro deficits--d/w'd sarah bauer will continue AC. -i am not aware of recurrent falls recently (despite chronic LE weakness). need to clarify with dtr as pt lacks accurate short-term recall she says. rec PT eval for gait instability/falls risk--once pt evaluated by PT and/or goes to rehab, if felt to be high falls risk will need to reconsider AC CAD: -anginal episode in hosp few years ago when rapid AF, with ischemia on MPI then -has been asymptomatic on med mgmt regimen, with good AF control -cont home meds Ao stenosis: -recent outpt echo with evidence of progression to probably severe -she has been asymptomatic, with no CHF--TAVR not indicated -cont routine outpt observation with me HTN: -controlled bp's here -cont home meds DM: -per primary team
[2018-03-21] MEDS: amLODIPine BESYLATE 10 MG TABLET (FP) PO SCH (09:37)
[2018-03-21] MEDS: metoPROLOL SUCCINATE 25 MG TAB.SR.24H (FP) PO SCH (09:38)
[2018-03-21] MEDS: OXYBUTYNIN CHLORIDE 5 MG TABLET PO SCH ×2 (09:38→22:35)
[2018-03-21] MEDS: CEFTRIAXONE 1 GM in DEXTROSE 5%-WATER - 50 ML IVPB SCH (09:38)
[2018-03-21] MEDS: APIXABAN 2.5 MG TABLET PO SCH (09:38)
[2018-03-21] MEDS: CLOTRIMAZOLE/BETAMET DIPROP 15 GM TUBE TP SCH ×2 (09:43→22:38)
[2018-03-21] MEDS ORDERED: sitaGLIPtin PHOSPHATE 50 MG TABLET PO SCH (11:30)
[2018-03-21] MEDS: ATORVASTATIN CA 20 MG TABLET (FP) PO SCH ×2 (12:35→22:35)
[2018-03-21] MEDS: APIXABAN 5 MG TABLET PO SCH ×2 (12:36→22:35)
[2018-03-21] MEDS: INSULIN (LEVEMIR) 100 UNITS/ML UNITS SQ SCH (22:35)
[2018-03-21] MEDS: ACETAMINOPHEN 325 MG TABLET (FP) PO PRN (22:45)
[2018-03-22] MEDS: GABAPENTIN 100 MG CAPSULE (FP) PO SCH ×3 (06:31→22:06)
[2018-03-22] MEDS: CARBIDOPA/LEVODOPA 25/100 TABLET (FP) PO SCH ×3 (06:31→22:07)
[2018-03-22] MEDS: sitaGLIPtin PHOSPHATE 100 MG TABLET (FP) PO SCH (06:31)
[2018-03-22] MEDS: ACETAMINOPHEN 325 MG TABLET (FP) PO PRN ×3 (06:33→22:07)
[2018-03-22] MEDS: INSULIN SLIDING SCALE (NOVOLOG) 1 VIAL SQ SCH ×3 (06:41→17:18)
--- NOTE | 2018-03-22 09:57 | CONSULT ---
Consult - text type - Consultation Consultation Note: Neurology History of Present Illness 87F w/ pmhx of DM, HTN, HLD, DVT, A. fib s/p pacemaker placement, CAD presented to the ED s/p fall. Reportedly on day of admission, was getting up from her bed to go to the bathroom when she had fallen because of b/l leg weakness. She admited to hitting the back of her head, her R side of the body as well as her L wrist per notes. She denied losing consciousness. After she had fallen, she called her sister for help because she was not able to get up herself. She denied headaches, dizziness, vision changes, chest pain, sob, abd pain, urinary/ bowel symptoms, blood in urine/stool. Reportedly, per pt's sister, has a hx of multiple falls in the past. She was seen at [facility] a couple of months ago due to a fall. Additionally, the sister states she falls 1-2x/month, but is usually able to get up herself. She has been living alone in her house over the past month as her has been at rehab. While admitted, she completed noncontrast head CT which did not show any acute changes. Additionally, she completed carotid Dopplers which were also negative as well as CT of the cervical spine which did not show any fractures or subluxations. She does have underlying Parkinson's disease for which she is on Sinemet. She has been ordered for EMG/nerve conduction study which are to be completed this morning. Past History - Past Medical History Allergies/Adverse Reactions: Allergies Allergy/AdvReac Type Severity Reaction Status Date / Time No Known Drug Allergies Allergy Verified 03/19/18 08:39 Home Medications: Ambulatory Orders Amlodipine Besylate [Norvasc -] 10 mg PO DAILY #30 tablet 01/01/15 Apixaban [Eliquis] 2.5 mg PO BID 03/19/18 Atorvastatin Ca [Lipitor] 40 mg PO HS 03/19/18 Carbidopa/Levodopa [Carbidopa-Levodopa 25-100 Tab] 1 each PO TID 03/19/18 Insulin Glargine,Hum.rec.anlog [Lantus] 30 unit SQ HS 03/19/18 Metoprolol Succinate [Toprol XL -] 75 mg PO BID 03/19/18 Oxybutynin Chloride 5 mg PO BID 03/19/18 Sitagliptin Phosphate [Januvia] 50 mg PO DAILY 03/19/18 PMHx: DM, HTN, HLD, A. fib (s/p pacemaker on Eliquis), CAD PSHx: Hysterectomy, pacemaker FHx: Mother and sister- Breast cx Social: Denies tobacco, rec drug use; social drinker, Denies recent travel COPD: No Diabetes: Yes HTN: Yes Hypercholesterolemia: Yes - Immunization History Immunization Up to Date: Yes - Suicide/Smoking/Psychosocial Hx Smoking Status: No Smoking History: Never smoked Have you smoked in the past 12 months: No Number of Cigarettes Smoked Daily: 0 Hx Alcohol Use: No Drug/Substance Use Hx: No Substance Use Type: None, Alcohol Hx Substance Use Treatment: No Review of Systems - Review of Systems Able to Perform ROS?: Yes Is the patient limited Armenian proficient: No Constitutional: Yes: Weakness. No: Chills, Fever HEENTM: Yes: Cataracts. No: Blurred Vision, Recent change in vision, Double Vision Respiratory: No: Orthopnea, Shortness of Breath, SOB with Exertion, SOB at Rest Cardiac (ROS): No: Chest Pain ABD/GI: Yes: Constipated. No: Diarrhea, Nausea, Vomiting *Physical Exam Vital Signs Period Temp Pulse Resp BP Sys/Padgett Pulse Ox Last 24 Hr 98.8 F-99.5 F 81-103 20-22 128-149/76-83 95 Gen: AAOx3 (person, place time), NAD HEENT: Atraumatic, EOMI, ROLO. Dry mucus membranes, dried blood noted in oral mucosa. Posterior neck point tenderness. Lungs: CTA B/L. Symmetric chest rise. Heart: RRR, normal S1, S2. No murmurs noted. Abd: Soft, NT/ND. +BS in all 4 Qs. No bruits/masses noted. MSK: 3x1cm laceration noted on dorsum of L wrist, bloody. 1+ dorsalis pedis pulses b/l. 2+ radial pulses b/l. Extremities: 5/5 strength b/l UE. 5/5 strength LLE. 3/5 strength RLE. Neuro: Facial symmetry noted. Facial muscles intact. Moves extremtities grossly , B/l sensation in face and u/l b/l extremities intact. Gait deferred CBCD WBC 6.1 K/mm3 (4.0-10.0) 03/20/18 07:16 RBC 4.46 M/mm3 (3.60-5.2) 03/20/18 07:16 Hgb 12.7 GM/dL (10.7-15.3) 03/20/18 07:16 Hct 38.9 % (32.4-45.2) 03/20/18 07:16 MCV 87.3 fl (80-96) 03/20/18 07:16 MCHC 32.7 g/dl (32.0-36.0) 03/20/18 07:16 RDW 14.3 % (11.6-15.6) 03/20/18 07:16 Plt Count 140 K/MM3 (134-434) 03/20/18 07:16 MPV 10.4 fl (7.5-11.1) 03/20/18 07:16 CMP Sodium 142 mmol/L (136-145) 03/20/18 07:16 Potassium 3.6 mmol/L (3.5-5.1) 03/20/18 07:16 Chloride 112 mmol/L (98-107) H 03/20/18 07:16 Carbon Dioxide 24 mmol/L (21-32) 03/20/18 07:16 Anion Gap 7 MMOL/L (8-16) L 03/20/18 07:16 BUN 17 mg/dL (7-18) 03/20/18 07:16 Creatinine 0.9 mg/dL (0.55-1.3) 03/20/18 07:16 Creat Clearance w eGFR 59.09 (>60) 03/20/18 07:16 Random Glucose 99 mg/dL (74-106) 03/20/18 07:16 Calcium 8.1 mg/dL (8.5-10.1) L 03/20/18 07:16 Total Bilirubin 0.6 mg/dL (0.2-1) 03/20/18 07:16 AST 18 U/L (15-37) 03/20/18 07:16 ALT 8 U/L (13-61) L 03/20/18 07:16 Alkaline Phosphatase 67 U/L (45-117) 03/20/18 07:16 Total Protein 5.9 g/dl (6.4-8.2) L 03/20/18 07:16 Albumin 2.6 g/dl (3.4-5.0) L 03/20/18 07:16 CARDIAC ENZYMES Troponin I < 0.02 ng/ml (0.00-0.05) 03/20/18 07:16 Medical Decision Making 87F w/ pmhx of DM, HTN, HLD, DVT, A. fib s/p pacemaker placement, CAD presented to the ED s/p fall. Reportedly on day of admission, was getting up from her bed to go to the bathroom when she had fallen because of b/l leg weakness. She admited to hitting the back of her head, her R side of the body as well as her L wrist per notes. She denied losing consciousness. Reportedly, per pt's sister , has a hx of multiple falls in the past. She was seen at [facility] a couple of months ago due to a fall. Additionally, the sister states she falls 1- 2x/month, but is usually able to get up herself. She has been living alone in her house over the past month as her has been at rehab. While admitted, she completed noncontrast head CT which did not show any acute changes. Additionally, she completed carotid Dopplers which were also negative as well as CT of the cervical spine which did not show any fractures or subluxations. She does have underlying Parkinson's disease for which she is on Sinemet. She has been ordered for EMG/nerve conduction study which are to be completed this morning. would continue current medication for Parkinson's disease, Sinemet at current dose. Will need physical therapy and possibly short-term rehabilitation. We'll await results of EMG to determine further management. 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 fall precautions recommended, DVT prophylaxis,, continue management of underlying urinary tract infection. Follow-up cardiology regarding atrial fibrillationas well as monitor blood pressure, maintain normotensive range.
--- NOTE | 2018-03-22 11:30 | ECHO ---
Name: NICOLEGUERLINEJUDYTUNG Exam:Adult Echocardiogram Study Date: 03/22/2018 10:12 AM Age: 87 yrs Reason For Study: Arrhythmia Height: 63 in Weight: 163 lb BSA: 1.8 m2 MMode/2D Measurements & Calculations Ao root diam: 2.7 cm LVOT diam: 2.0 cm ACS: 1.1 cm Doppler Measurements & Calculations Ao V2 max: 259.4 cm/sec LV V1 max P.5 mmHg Ao max P.0 mmHg LV V1 max: 78.4 cm/sec DILLON(V,D): 0.94 cm2 TR max marci: 207.5 cm/sec TR max P.2 mmHg Procedure A complete two-dimensional transthoracic echocardiogram was performed (2D, M-mode, Doppler and color flow Doppler). Technically limited study (severely limited study). Left Ventricle The left ventricle is normal in size. A mid-cavitary gradient is present. Left ventricular systolic f unction is normal. Ejection Fraction = 65-70%. No regional wall motion abnormalities noted. Right Ventricle The right ventricle is normal size. The right ventricular systolic function is normal. Atria The left atrial size is normal. Right atrial size is normal. Mitral Valve There is mild mitral annular calcification. There is no mitral regurgitation noted. Tricuspid Valve The tricuspid valve is normal in structure and function. There is Trace to mild tricuspid regurgitati on. Aortic Valve There is mild to moderate aortic valve thickening. Aortic valve motion appears restricted suggestive of aortic stenosis. Full Doppler assessment was not obtained. Maximal AV gradient was measured 31 mmHg and DILLON of 0.94 cm2. Aortic and LVOT VTI was not obtained. No aortic regurgitation is present. Pulmonic Valve The pulmonic valve is not well visualized. Great Vessels The aortic root is normal size. Pericardium/Pleura There is no pericardial effusion. Interpretation Summary Technically limited study (severely limited study) Ejection Fraction = 65-70%. A mid-cavitary gradient is present. The right ventricular systolic function is normal. The left atrial size is normal. Right atrial size is normal. There is mild mitral annular calcification. There is Trace to mild tricuspid regurgitation. Aortic valve motion appears restricted suggestive of aortic stenosis. Full Doppler assessment was not obtained. Maximal AV gradient was measured 31 mmHg and DILLON of 0.94 cm2. Aortic and LVOT VTI was not o btained There is no pericardial effusion. Previous study is not available for comparison Pavan Garcia MD 03/22/2018 11:29 AM
[2018-03-22] MEDS ORDERED: PT OWN MED DRAWER 7, Y5N ONE ×2 (11:38→22:04)
[2018-03-22] MEDS: APIXABAN 5 MG TABLET PO SCH ×2 (12:07→22:06)
[2018-03-22] MEDS: metoPROLOL SUCCINATE 25 MG TAB.SR.24H (FP) PO SCH ×2 (12:07→22:07)
[2018-03-22] MEDS: amLODIPine BESYLATE 10 MG TABLET (FP) PO SCH ×3 (12:08→14:25)
[2018-03-22] MEDS: OXYBUTYNIN CHLORIDE 5 MG TABLET PO SCH ×2 (12:08→22:06)
[2018-03-22] MEDS: CLOTRIMAZOLE/BETAMET DIPROP 15 GM TUBE TP SCH ×2 (12:09→22:09)
--- NOTE | 2018-03-22 12:12 | PN ---
Progress Note, Physician Chief Complaint: admitted for frequent falls in bed tried to get her to get up with two assistance but slumped back in chair got EMG testing done - Current Medication List Current Medications: Active Medications Acetaminophen (Tylenol -) 650 mg PO Q6H PRN PRN Reason: PAIN OR FEVER Last Admin: 03/22/18 06:33 Dose: 650 mg Amlodipine Besylate (Norvasc -) 10 mg PO DAILY [facility] Last Admin: 03/21/18 09:37 Dose: 10 mg Apixaban (Eliquis -) 5 mg PO BID [facility] Last Admin: 03/21/18 22:35 Dose: 5 mg Atorvastatin Calcium (Lipitor -) 20 mg PO HS [facility] Last Admin: 03/21/18 22:35 Dose: 20 mg Carbidopa/Levodopa (Sinemet 25/100 -) 1 each PO TID [facility] Last Admin: 03/22/18 06:31 Dose: 1 each Clotrimazole (Lotrisone Cream (Small Tube)) 1 applic TP BID [facility] Last Admin: 03/21/18 22:38 Dose: 1 applic Gabapentin (Neurontin -) 200 mg PO TID [facility] Last Admin: 03/22/18 06:31 Dose: 200 mg Insulin Aspart (Novolog Vial Sliding Scale -) 1 vial SQ [facility]; Protocol Last Admin: 03/22/18 06:41 Dose: Not Given Insulin Detemir (Levemir Vial) 30 units SQ [facility] Last Admin: 03/21/18 22:35 Dose: 30 units Metoprolol Succinate (Toprol Xl -) 75 mg PO DAILY [facility] Last Admin: 03/21/18 09:38 Dose: 75 mg Oxybutynin Chloride (Ditropan -) 5 mg PO BID [facility] Last Admin: 03/21/18 22:35 Dose: 5 mg Sitagliptin Phosphate (Januvia -) 100 mg PO 0700 [facility] Last Admin: 03/22/18 06:31 Dose: 100 mg - Objective Vital Signs: Vital Signs Temperature 99.5 F 03/22/18 06:00 Pulse Rate 96 H 03/22/18 06:00 Respiratory Rate 20 03/22/18 06:00 Blood Pressure 140/80 03/22/18 06:00 O2 Sat by Pulse Oximetry (%) 95 03/21/18 21:00 Constitutional: Yes: Calm Cardiovascular: Yes: Regular Rate and Rhythm, S1, S2 Respiratory: Yes: CTA Bilaterally Gastrointestinal: Yes: Normal Bowel Sounds, Soft Edema: No Labs: CBC, BMP 03/20/18 07:16 03/20/18 07:16 INR, PTT INR 1.11 (0.83-1.09) H 03/19/18 09:00 Problem List - Problems (1) Frequent falls Assessment/Plan: carotid doppler negative ct head negatie EMG bilateral S1 radiculopathies no polymyopathy or neuropathy will get ct lumbar spine to r/o L3L4 stenosis will need snf placement-strenghtening PT/OT Code(s): R29.6 - REPEATED FALLS (2) Afib Assessment/Plan: eliquis toprol rate control Code(s): I48.91 - UNSPECIFIED ATRIAL FIBRILLATION (3) Diabetes Assessment/Plan: levemir hga1c noted - sliding scale januvia Code(s): E11.9 - TYPE 2 DIABETES MELLITUS WITHOUT COMPLICATIONS Qualifiers: Diabetes mellitus type: type 2 (4) Lumbar radiculopathy Assessment/Plan: lumbar spine ct scan to look for L3-L4 stenosis on neurontin Code(s): M54.16 - RADICULOPATHY, LUMBAR REGION (5) HTN (hypertension) Assessment/Plan: norvas Code(s): I10 - ESSENTIAL (PRIMARY) HYPERTENSION
--- NOTE | 2018-03-22 12:25 | CONSULT ---
Consult Consult Specialty:: Endocrinology Referred by:: Bryn Ortiz Reason for Consultation:: Hyperglycemia - History of Present Illness Chief Complaint: Fall History of Present Illness: This is an 87 y/o F with h/o T2DM for 10 years, on Insulin for 5 years, HTN, HLD , DVT, A. fib s/p pacemaker placement, CAD who presented to the ED s/p fall. Pt stated that at 6am she was getting up from her bed to go to the bathroom when she had fallen because of b/l leg weakness. She admits to hitting the back of her head, her R side of the body as well as her L wrist. She denies losing consciousness. After she had fallen, she called her sister for help because she was not able to get up herself. She denies any mechanical fall, headaches, dizziness, vision changes, chest pain, sob, abd pain, urinary/bowel symptoms, blood in urine/stool. As per pt's sister, pt has a hx of multiple falls in the past. She was seen at [facility] a couple of months ago due to a fall. Pt referred for management of blood sugar. Pt takes 30 to 35 units of Insulin at home. FS at home 100 to 200s. No hypos. - History Source History Provided By: Patient, Medical Record - Past Medical History Cardio/Vascular: Yes: HTN, Hyperlipdemia - Past Surgical History Past Surgical History: Yes: None - Alcohol/Substance Use Hx Alcohol Use: No - Smoking History Smoking history: Never smoked Have you smoked in the past 12 months: No Aproximately how many cigarettes per day: 0 - Social History Usual Living Arrangement: With Child ADL: Independent Home Medications - Allergies Allergies/Adverse Reactions: Allergies Allergy/AdvReac Type Severity Reaction Status Date / Time No Known Drug Allergies Allergy Verified 03/19/18 08:39 - Home Medications Home Medications: Ambulatory Orders Amlodipine Besylate [Norvasc -] 10 mg PO DAILY #30 tablet 01/01/15 Apixaban [Eliquis] 2.5 mg PO BID 03/19/18 Atorvastatin Ca [Lipitor] 40 mg PO HS 03/19/18 Carbidopa/Levodopa [Carbidopa-Levodopa 25-100 Tab] 1 each PO TID 03/19/18 Insulin Glargine,Hum.rec.anlog [Lantus] 30 unit SQ HS 03/19/18 Metoprolol Succinate [Toprol XL -] 75 mg PO BID 03/19/18 Oxybutynin Chloride 5 mg PO BID 03/19/18 Sitagliptin Phosphate [Januvia] 50 mg PO DAILY 03/19/18 Review of Systems - Review of Systems Constitutional: reports: No Symptoms Eyes: reports: No Symptoms HENT: reports: No Symptoms Neck: reports: No Symptoms Cardiovascular: reports: No Symptoms Respiratory: reports: No Symptoms Gastrointestinal: reports: No Symptoms Genitourinary: reports: No Symptoms Musculoskeletal: reports: Extremity Pain Integumentary: reports: No Symptoms Neurological: reports: No Symptoms Endocrine: reports: No Symptoms Hematology/Lymphatic: reports: No Symptoms Physical Exam Vital Signs: Vital Signs Temperature 99.5 F 03/22/18 06:00 Pulse Rate 96 H 03/22/18 06:00 Respiratory Rate 20 03/22/18 06:00 Blood Pressure 140/80 03/22/18 06:00 O2 Sat by Pulse Oximetry (%) 95 03/21/18 21:00 Constitutional: Yes: No Distress, Calm Eyes: Yes: Conjunctiva Clear, EOM Intact HENT: Yes: Atraumatic, Normocephalic Neck: Yes: Supple, Trachea Midline Cardiovascular: Yes: Regular Rate and Rhythm Respiratory: Yes: Regular, CTA Bilaterally Gastrointestinal: Yes: Normal Bowel Sounds, Soft Extremities: Yes: Other (left wrist dressing) Edema: No Neurological: Yes: Alert, Oriented Labs: CBC, BMP 03/20/18 07:16 03/20/18 07:16 Assessment/Plan AP: S/P Fall A Fib T2DM CAD HTN BGM QACHS Levemir 30 units daily Change Novolog SS coverage Will F/U
--- NOTE | 2018-03-22 13:31 | CONS ---
DATE OF CONSULTATION: 03/21/2018 REFERRING PHYSICIAN: Bryn Ortiz NP HISTORY: I saw the above patient in elevation as well as for electrodiagnostic studies of the lower extremities. The patient is an 87-year-old woman with past medical history of diabetes, atrial fibrillation who was admitted with lower extremity weakness after a fall. The patient hit the back of her head as well as her left wrist and was brought to . On admission, she had a CBC with WBCs 8.2, hemoglobin 13.9, platelet count 137. Chemistry showed elevated BUN 18, creatinine 0.9. Sodium was slightly elevated at 146, potassium 3.8, chloride 111. She had a low albumin of 3. CT of the head on admission showed no acute intracranial pathology. CT of the cervical spine showed satisfactory alignment. There was some facet arthropathy C4-C5 through C6-C7 on the right side and calcified plaque. X-rays of the pelvis and right hip showed no fracture. X-rays of the left wrist showed degenerative changes, heavy calcification but no fracture. On March 20 she underwent a carotid Doppler. No hemodynamically significant stenosis. Repeat blood work was stable with normal CBC. Chemistry showed improvement in sodium to 142 and BUN slightly improved to 17, potassium normal at 3.6. The patient complains of pain all over but particularly in the lower extremities. Of note, she did undergo an MRI of her lumbar spine back in 2014, which reportedly showed L4-L5 discogenic disease with spinal neural foraminal narrowing left more than right at L3-L4. The patient is scheduled for an MRI of the lumbar spine but no definite history of spinal stenosis. The patient does complain of some numbness. PAST MEDICAL HISTORY: As above. Diabetes, hypertension, hyperlipidemia, DVT, atrial fibrillation, permanent pacemaker placement, back issues as above. PAST SURGICAL HISTORY: As above. SOCIAL HISTORY: Lived in a 2-family home premorbidly. She indicates she was able to ambulate. May have used a walker at times. Had difficulty with stair negotiation requiring some help but she was independent with ADLs, per her recollection. Current function is not available. She comes down on a stretcher. REVIEW OF SYSTEMS: No lightheadedness or dizziness. No blurry vision, double vision. No nausea, vomiting, difficulty swallowing, difficulty chewing. No chest pain or shortness of breath. She has pain in her left wrist and throughout her lower extremities as well as in her back. Numbness and tingling in the lower extremities including the calves and shins. No significant weight change. PHYSICAL EXAMINATION: General: An elderly woman seen lying on a stretcher in no acute distress. She is awake, alert, cooperative. HEENT: She is normocephalic and atraumatic. Extraocular muscles appear intact. Neck: Supple. Extremities: Without any calf tenderness or pitting edema. The left wrist has a bandage over it and is unable to be evaluated from a skin perspective. Skin: Without any rash or breakdown. Neuromuscular: She is awake, alert, and cooperative. Cranial nerves 2-12 are grossly intact. She has pain with movement of both of her shoulders, and I am unable to evaluate the left wrist because of splint from a fall. Right wrist she moves better, but there are arthritic changes in both hands. In the lower extremity it is difficult to assess strength. Only 1/5 to 2/5 hip girdle strength as well as distally she complains of pain even with active assist range of motion. Seems to have diminished sensation and patches throughout the lower extremities, possibly S1 dermatome and L5 dermatomes. She has absent ankle jerk reflexes. Trace knee jerk reflexes. Tenderness throughout her lower extremities as well as her lower back. DIAGNOSTIC DATA: Results of EMG nerve conduction studies, please refer to report for details. OVERALL IMPRESSION: 1. There is electrodiagnostic evidence of polyradiculopathy at least including bilateral S1 and right L5 nerve roots, rule out spinal stenosis at L3-L4 or L4-L5. 2. No electrodiagnostic evidence of polyneuropathy. 3. No electrodiagnostic evidence of myopathy. 4. Gait disorder. 5. Status post fall. 6. History of atrial fibrillation and deep vein thrombosis on Eliquis currently. 7. Diffuse osteoarthritis. 8. Hypertension. 9. Elevated risk for deep vein thrombosis. 10. Patient is on medication for possible Parkinson disease, which is to be continued, per Neurology. PLAN/SUGGESTION: 1. Neurologic follow up. 2. Agree with MRI of the lumbosacral spine to assess for stenosis at L3-L4 or L4-L5. 3. Physical therapy. 4. Pain control. Patient is not a good candidate for narcotics or any sedative medication but could try low-dose gabapentin. 5. Skin precautions. 6. Bowel regimen. 7. Patient will probably require short-term rehabilitation in a prison facility once she is medically stable. Thank you very much for this referral. CHRIS MARCUM M.D. [id number]
--- NOTE | 2018-03-22 14:47 | PN ---
Progress Note (short form) - Note Progress Note: feels improved Vital Signs Period Temp Pulse Resp BP Sys/Padgett Pulse Ox Last 24 Hr 98.5 F-99.5 F 96-155 20- 123-149/78-83 95 cor-rrr lungs clear abd soft,nt ext no edema splint left wrist CBC, BMP 03/20/18 07:16 03/20/18 07:16 Microbiology 03/19/18 16:30 Blood - Peripheral Venous Blood Culture - Preliminary NO GROWTH OBTAINED AFTER 48 HOURS, INCUBATION TO CONTINUE FOR 3 DAYS. 03/19/18 15:45 Blood - Peripheral Venous Blood Culture - Preliminary NO GROWTH OBTAINED AFTER 48 HOURS, INCUBATION TO CONTINUE FOR 3 DAYS. 03/20/18 11:50 Urine - Urine Clean Catch Urine Culture - Final NO GROWTH OBTAINED 03/19/18 09:05 Urine - Urine Clean Catch Urine Culture - Final Contaminated: Please Repeat a/p s/p fall neuro/cardiology eval no signs infection can d/c ceftriaxone Problem List - Problems (1) Frequent falls Code(s): R29.6 - REPEATED FALLS (2) UTI (urinary tract infection) Code(s): N39.0 - URINARY TRACT INFECTION, SITE NOT SPECIFIED
--- NOTE | 2018-03-22 17:01 | PN ---
Progress Note (short form) - Note Progress Note: cc: fall s: no chest pain, palps, dizzy, lightheaded, dyspnea Current Medications Acetaminophen (Tylenol -) 650 mg PO Q6H PRN PRN Reason: PAIN OR FEVER Last Admin: 03/22/18 14:23 Dose: 650 mg Amlodipine Besylate (Norvasc -) 10 mg PO DAILY [facility] Last Admin: 03/22/18 14:25 Dose: 10 mg Apixaban (Eliquis -) 5 mg PO BID [facility] Last Admin: 03/22/18 12:07 Dose: 5 mg Atorvastatin Calcium (Lipitor -) 20 mg PO HS [facility] Last Admin: 03/21/18 22:35 Dose: 20 mg Carbidopa/Levodopa (Sinemet 25/100 -) 1 each PO TID [facility] Last Admin: 03/22/18 14:19 Dose: 1 each Clotrimazole (Lotrisone Cream (Small Tube)) 1 applic TP BID [facility] Last Admin: 03/22/18 12:09 Dose: 1 applic Gabapentin (Neurontin -) 200 mg PO TID [facility] Last Admin: 03/22/18 14:19 Dose: 200 mg Insulin Aspart (Novolog) 1 units SQ HS [facility]; Protocol Insulin Aspart (Novolog Vial Sliding Scale -) 1 vial SQ TIDAC [facility]; Protocol Insulin Detemir (Levemir Vial) 30 units SQ HS [facility] Last Admin: 03/21/18 22:35 Dose: 30 units Metoprolol Succinate (Toprol Xl -) 75 mg PO DAILY [facility] Last Admin: 03/22/18 12:07 Dose: 75 mg Oxybutynin Chloride (Ditropan -) 5 mg PO BID [facility] Last Admin: 03/22/18 12:08 Dose: 5 mg Sitagliptin Phosphate (Januvia -) 100 mg PO 0700 [facility] Last Admin: 03/22/18 06:31 Dose: 100 mg Vital Signs: Vital Signs Period Temp Pulse Resp BP Sys/Padgett Pulse Ox Last 24 Hr 98.5 F-99.5 F 96-155 20-26 123-149/78-83 95 Constitutional: Yes: Well Nourished, No Distress Eyes: No: Sclera Icterus HENT: No: Nasal Congestion Neck: No: Decreased ROM Respiratory: Yes: CTA Bilaterally. No: Accessory Muscle Use, Rales, Wheezes Gastrointestinal: Yes: Normal Bowel Sounds. No: Distention, Hepatomegaly, Palpable Mass, Tenderness Cardiovascular: Yes: Regular Rate and Rhythm JVD: No Carotid Bruit: No PMI: Non-Displaced Heart Sounds: Yes: S1, S2. No: Gallop Murmur: Yes: Systolic Murmur (3/6 NAHOMY LUSB no S2 split heard). No: Diastolic Murmur Musculoskeletal: Yes: Other (No kyphosis) Extremities: No: Cold, Cyanosis Edema: No Peripheral Pulses: 2+ Left Carotid, 2+ Right Carotid, 2+ Left Doralis Pedis, 2+ Right Dorsalis Pedis Integumentary: No: Jaundice Neurological: Yes: Alert, Oriented (x3) Psychiatric: No: Agitated Assessment/Plan ECG: afib, ? regularized echo 02/2018 TDS, Ef 65-70%, RV function nl, tr to mild TR, ao valve gradient c/ w aortic stenosis, peak gradient 31 mmHg, DILLON 0.94, nl LVOT or AV VTI done s/p fall: -chronic bilat LE weakness--NOT NEW (and did not improve with prolonged holiday off statin in past) -per dr burch's team afib: -? regularized afib on ECG from ER. no bradycardia. pt not on digoxin at home as per my recollection, and not on home med list in ER -has PPM in place to prevent bradycardia -cont home toprol regimen - changed to BID per home meds list -CHADS VASC 6, hi risk for stroke- dose changed to eliquis 5 mg BID for AC ( weight >60 kg, Cr <1.5), continue eliquis - PT eval for gait instability/falls risk--once pt evaluated by PT and/or goes to rehab, if felt to be high falls risk will need to reconsider AC CAD: -anginal episode in hosp few years ago when rapid AF, with ischemia on MPI then -has been asymptomatic on med mgmt regimen, with good AF control -cont home meds Ao stenosis: -recent outpt echo with evidence of progression to probably severe , technically difficult study here -she has been asymptomatic, with no CHF--TAVR not indicated -cont routine outpt observation with Dr. Khan HTN: -controlled bp's here -cont home meds DM: -per primary team
[2018-03-22] MEDS: ATORVASTATIN CA 20 MG TABLET (FP) PO SCH (22:06)
[2018-03-22] MEDS: Insulin (LOG) Aspart 100 UNITS/ML VIAL SQ SCH (22:08)
[2018-03-22] MEDS: INSULIN (LEVEMIR) 100 UNITS/ML UNITS SQ SCH (22:09)
[2018-03-23] MEDS: ACETAMINOPHEN 325 MG TABLET (FP) PO PRN ×2 (06:20→17:58)
[2018-03-23] MEDS: GABAPENTIN 100 MG CAPSULE (FP) PO SCH ×3 (06:20→22:16)
[2018-03-23] MEDS: CARBIDOPA/LEVODOPA 25/100 TABLET (FP) PO SCH ×3 (06:20→22:17)
[2018-03-23] MEDS: sitaGLIPtin PHOSPHATE 100 MG TABLET (FP) PO SCH (06:21)
[2018-03-23] MEDS: INSULIN SLIDING SCALE (NOVOLOG) 1 VIAL SQ SCH ×3 (06:22→16:30)
--- NOTE | 2018-03-23 06:58 | HOSP ---
Subjective - Review of Symptoms Events since last encounter: Hospitalist Encounter Notified by RN that the patient's HR is 140, per nurse pt is asymptomatic Subjective: Arrived to bedside, pt is awake, alert and oriented. Patient denies chest pain, palpitations or SOB. PE performed see EMR Plan: Stat EKG Call placed to nursing supervisor mapping for Telemetry bed Pending Transfer to Telemetry Call placed to Cardiology Physical Examination Vital Signs: Vital Signs Temperature 98.0 F 03/23/18 06:00 Pulse Rate 140 H 03/23/18 06:00 Respiratory Rate 20 03/23/18 06:00 Blood Pressure 115/68 03/23/18 06:00 O2 Sat by Pulse Oximetry (%) 94 L 03/22/18 21:00 Constitutional: Yes: Well Nourished, No Distress, Calm, Obese Eyes: Yes: Conjunctiva Clear, EOM Intact, PERRL HENT: Yes: WNL, Atraumatic, Normocephalic Neck: Yes: WNL, Supple, Trachea Midline Cardiovascular: Yes: Pulse Irregular, Murmur (systolic grade 3/6), S1, S2 Gastrointestinal: Yes: Normal Bowel Sounds, Soft, Abdomen, Obese Peripheral Pulses WNL: Yes Neurological: Yes: WNL, Alert, Oriented ...Motor Strength: WNL Psychiatric: Yes: WNL, Alert, Oriented Labs: CBC, BMP 03/20/18 07:16 03/20/18 07:16 Hospitalist Encounter Assessment: This is an 87 y/o F with h/o T2DM for 10 years, on Insulin for 5 years, HTN, HLD , DVT, A. fib s/p pacemaker placement, CAD who presented to the ED s/p fall. Admitted for UTI, Generalized Weakness, s/p Fall. Outcome: EKG completed- Afib with RVR 120, PVCs, Inferior Infarct, age undetermined Per RN who spoke with Dr. Khan, pt has Chronic Afib, orders were given to the nurse, pt to remain on M/S Transfer order d/cd PMD to follow up Critical Care Total Critical Care Time (in minutes): 32 Critical Care Statement: The care of this patient involved high complexity decision making to prevent further life threatening deterioration of the patient 's condition and/or to evaluate & treat vital organ system(s) failure or risk of failure.
--- NOTE | 2018-03-23 08:13 | PN ---
Progress Note, Physician - Current Medication List Current Medications: Active Medications Acetaminophen (Tylenol -) 650 mg PO Q6H PRN PRN Reason: PAIN OR FEVER Last Admin: 03/23/18 06:20 Dose: 650 mg Amlodipine Besylate (Norvasc -) 10 mg PO DAILY [facility] Last Admin: 03/22/18 14:25 Dose: 10 mg Apixaban (Eliquis -) 5 mg PO BID [facility] Last Admin: 03/22/18 22:06 Dose: 5 mg Atorvastatin Calcium (Lipitor -) 20 mg PO HS [facility] Last Admin: 03/22/18 22:06 Dose: 20 mg Carbidopa/Levodopa (Sinemet 25/100 -) 1 each PO TID [facility] Last Admin: 03/23/18 06:20 Dose: 1 each Clotrimazole (Lotrisone Cream (Small Tube)) 1 applic TP BID [facility] Last Admin: 03/22/18 22:09 Dose: 1 applic Gabapentin (Neurontin -) 200 mg PO TID [facility] Last Admin: 03/23/18 06:20 Dose: 200 mg Insulin Aspart (Novolog) 1 units SQ [facility]; Protocol Last Admin: 03/22/18 22:08 Dose: 1 units Insulin Aspart (Novolog Vial Sliding Scale -) 1 vial SQ TIDAC [facility]; Protocol Last Admin: 03/23/18 06:22 Dose: 2 units Insulin Detemir (Levemir Vial) 30 units SQ [facility] Last Admin: 03/22/18 22:09 Dose: 30 units Metoprolol Succinate (Toprol Xl -) 75 mg PO BID [facility] Last Admin: 03/22/18 22:07 Dose: 75 mg Oxybutynin Chloride (Ditropan -) 5 mg PO BID [facility] Last Admin: 03/22/18 22:06 Dose: 5 mg Sitagliptin Phosphate (Januvia -) 100 mg PO 0700 [facility] Last Admin: 03/23/18 06:21 Dose: 100 mg - Objective Vital Signs: Vital Signs Temperature 98.1 F 03/23/18 07:21 Pulse Rate 123 H 03/23/18 07:21 Respiratory Rate 20 03/23/18 07:21 Blood Pressure 98/53 L 03/23/18 07:21 O2 Sat by Pulse Oximetry (%) 94 L 03/22/18 21:00 Cardiovascular: Yes: S1, S2 Respiratory: Yes: Regular, CTA Bilaterally Gastrointestinal: Yes: Normal Bowel Sounds, Soft Labs: CBC, BMP 03/20/18 07:16 INR, PTT INR 1.11 (0.83-1.09) H 03/19/18 09:00 Assessment/Plan Problems (1) Frequent falls Assessment/Plan: carotid doppler negative ct head negatie EMG bilateral S1 radiculopathies no polymyopathy or neuropathy will get ct lumbar spine to r/o L3L4 stenosis will need snf placement-strenghtening PT/OT Code(s): R29.6 - REPEATED FALLS (2) Afib Assessment/Plan: eliquis toprol rate control Code(s): I48.91 - UNSPECIFIED ATRIAL FIBRILLATION (3) Diabetes Assessment/Plan: levemir hga1c noted - sliding scale januvia Code(s): E11.9 - TYPE 2 DIABETES MELLITUS WITHOUT COMPLICATIONS Qualifiers: Diabetes mellitus type: type 2 (4) Lumbar radiculopathy Assessment/Plan: lumbar spine ct scan to look for L3-L4 stenosis on neurontin Code(s): M54.16 - RADICULOPATHY, LUMBAR REGION (5) HTN (hypertension) Assessment/Plan: [facility] Code(s): I10 - ESSENTIAL (PRIMARY) HYPERTENSION
[2018-03-23 08:15] LABS: HEMATOCRIT 37.9 % (32.4-45.2); HEMOGLOBIN 12.5 GM/dL (10.7-15.3); MCH 28.9 pg (25.7-33.7); MEAN CELL VOLUME 87.4 fl (80-96); MEAN PLT VOLUME 10.3 fl (7.5-11.1); PLATELET COUNT 155 K/MM3 (134-434); RBC 4.34 M/mm3 (3.60-5.2); RDW 13.8 % (11.6-15.6); WHITE BLOOD COUNT 8.9 K/mm3 (4.0-10.0)
--- NOTE | 2018-03-23 08:46 | PN ---
Progress Note (short form) - Note Progress Note: Neurology History of Present Illness 87F w/ pmhx of DM, HTN, HLD, DVT, A. fib s/p pacemaker placement, CAD presented to the ED s/p fall. Reportedly on day of admission, was getting up from her bed to go to the bathroom when she had fallen because of b/l leg weakness. She admited to hitting the back of her head, her R side of the body as well as her L wrist per notes. She denied losing consciousness. After she had fallen, she called her sister for help because she was not able to get up herself. She denied headaches, dizziness, vision changes, chest pain, sob, abd pain, urinary/ bowel symptoms, blood in urine/stool. Reportedly, per pt's sister, has a hx of multiple falls in the past. She was seen at [facility] a couple of months ago due to a fall. Additionally, the sister states she falls 1-2x/month, but is usually able to get up herself. She has been living alone in her house over the past month as her has been at rehab. While admitted, she completed noncontrast head CT which did not show any acute changes. Additionally, she completed carotid Dopplers which were also negative as well as CT of the cervical spine which did not show any fractures or subluxations. She does have underlying Parkinson's disease for which she is on Sinemet. EMG/ NCS completed and shows B/L S1 radic and R L5 radic, r/o spinal stenosis at L3/ L4 and L4/L5. Retrieved and reviewed and MRI L spine from 2014 which did show disc disease, compromised spinal canal with neural formina narrowing. Repeat MRI ordered, expect further progression of this. Allergies/Adverse Reactions: Allergies Allergy/AdvReac Type Severity Reaction Status Date / Time No Known Drug Allergies Allergy Verified 03/19/18 08:39 Active Medications Acetaminophen (Tylenol -) 650 mg PO Q6H PRN PRN Reason: PAIN OR FEVER Last Admin: 03/23/18 06:20 Dose: 650 mg Amlodipine Besylate (Norvasc -) 10 mg PO DAILY [facility] Last Admin: 03/22/18 14:25 Dose: 10 mg Apixaban (Eliquis -) 5 mg PO BID [facility] Last Admin: 03/22/18 22:06 Dose: 5 mg Atorvastatin Calcium (Lipitor -) 20 mg PO HS [facility] Last Admin: 03/22/18 22:06 Dose: 20 mg Carbidopa/Levodopa (Sinemet 25/100 -) 1 each PO TID [facility] Last Admin: 03/23/18 06:20 Dose: 1 each Clotrimazole (Lotrisone Cream (Small Tube)) 1 applic TP BID [facility] Last Admin: 03/22/18 22:09 Dose: 1 applic Gabapentin (Neurontin -) 200 mg PO TID [facility] Last Admin: 03/23/18 06:20 Dose: 200 mg Insulin Aspart (Novolog) 1 units SQ HS [facility]; Protocol Last Admin: 03/22/18 22:08 Dose: 1 units Insulin Aspart (Novolog Vial Sliding Scale -) 1 vial SQ TIDAC [facility]; Protocol Last Admin: 03/23/18 06:22 Dose: 2 units Insulin Detemir (Levemir Vial) 30 units SQ [facility] Last Admin: 03/22/18 22:09 Dose: 30 units Metoprolol Succinate (Toprol Xl -) 75 mg PO BID [facility] Last Admin: 03/22/18 22:07 Dose: 75 mg Oxybutynin Chloride (Ditropan -) 5 mg PO BID [facility] Last Admin: 03/22/18 22:06 Dose: 5 mg Sitagliptin Phosphate (Januvia -) 100 mg PO 0700 [facility] Last Admin: 03/23/18 06:21 Dose: 100 mg *Physical Exam Vital Signs Period Temp Pulse Resp BP Sys/Padgett Pulse Ox Last 24 Hr 98.0 F-99.8 F 76-155 19-22 98-123/53-78 93-94 Gen: AAOx3 (person, place time), NAD HEENT: Atraumatic, EOMI, ROLO. Dry mucus membranes, dried blood noted in oral mucosa. Posterior neck point tenderness. Lungs: CTA B/L. Symmetric chest rise. Heart: RRR, normal S1, S2. No murmurs noted. Abd: Soft, NT/ND. +BS in all 4 Qs. No bruits/masses noted. MSK: 3x1cm laceration noted on dorsum of L wrist, bloody. 1+ dorsalis pedis pulses b/l. 2+ radial pulses b/l. Extremities: 5/5 strength b/l UE. 5/5 strength LLE. 3/5 strength RLE. Neuro: Facial symmetry noted. Facial muscles intact. Moves extremtities grossly , B/l sensation in face and u/l b/l extremities intact. Gait deferred CBCD WBC 8.9 K/mm3 (4.0-10.0) 03/23/18 07:55 RBC 4.34 M/mm3 (3.60-5.2) 03/23/18 07:55 Hgb 12.5 GM/dL (10.7-15.3) 03/23/18 07:55 Hct 37.9 % (32.4-45.2) 03/23/18 07:55 MCV 87.4 fl (80-96) 03/23/18 07:55 MCHC 33.0 g/dl (32.0-36.0) 03/23/18 07:55 RDW 13.8 % (11.6-15.6) 03/23/18 07:55 Plt Count 155 K/MM3 (134-434) 03/23/18 07:55 MPV 10.3 fl (7.5-11.1) 03/23/18 07:55 CMP Sodium 142 mmol/L (136-145) 03/20/18 07:16 Potassium 3.6 mmol/L (3.5-5.1) 03/20/18 07:16 Chloride 112 mmol/L (98-107) H 03/20/18 07:16 Carbon Dioxide 24 mmol/L (21-32) 03/20/18 07:16 Anion Gap 7 MMOL/L (8-16) L 03/20/18 07:16 BUN 17 mg/dL (7-18) 03/20/18 07:16 Creatinine 0.9 mg/dL (0.55-1.3) 03/20/18 07:16 Creat Clearance w eGFR 59.09 (>60) 03/20/18 07:16 Random Glucose 99 mg/dL (74-106) 03/20/18 07:16 Calcium 8.1 mg/dL (8.5-10.1) L 03/20/18 07:16 Total Bilirubin 0.6 mg/dL (0.2-1) 03/20/18 07:16 AST 18 U/L (15-37) 03/20/18 07:16 ALT 8 U/L (13-61) L 03/20/18 07:16 Alkaline Phosphatase 67 U/L (45-117) 03/20/18 07:16 Total Protein 5.9 g/dl (6.4-8.2) L 03/20/18 07:16 Albumin 2.6 g/dl (3.4-5.0) L 03/20/18 07:16 CARDIAC ENZYMES Troponin I < 0.02 ng/ml (0.00-0.05) 03/20/18 07:16 Medical Decision Making 87F w/ pmhx of DM, HTN, HLD, DVT, A. fib s/p pacemaker placement, CAD presented to the ED s/p fall. Reportedly on day of admission, was getting up from her bed to go to the bathroom when she had fallen because of b/l leg weakness. She admited to hitting the back of her head, her R side of the body as well as her L wrist per notes. She denied losing consciousness. Reportedly, per pt's sister , has a hx of multiple falls in the past. She was seen at [facility] a couple of months ago due to a fall. Additionally, the sister states she falls 1- 2x/month, but is usually able to get up herself. She has been living alone in her house over the past month as her has been at rehab. While admitted, she completed noncontrast head CT which did not show any acute changes. Additionally, she completed carotid Dopplers which were also negative as well as CT of the cervical spine which did not show any fractures or subluxations. She does have underlying Parkinson's disease for which she is on Sinemet. EMG/ NCS completed and shows B/L S1 radic and R L5 radic, r/o spinal stenosis at L3/ L4 and L4/L5. Retrieved and reviewed and MRI L spine from 2015 which did show disc disease, compromised spinal canal with neural formina narrowing. Repeat MRI ordered, expect further progression of this. Continue physical therapy and possibly short-term rehabilitation. Multifactorial gait disorder with underlying Parkinson's disease along with age-related spinal stenosis. Would pursue conservative mgmt. Fall precautions recommended, DVT prophylaxis,, continue management of underlying urinary tract infection. Follow-up cardiology regarding atrial fibrillationas well as monitor blood pressure, maintain normotensive range.
--- NOTE | 2018-03-23 08:59 | PN ---
Progress Note (short form) - Note Progress Note: Events noted Tachycardia in the morning Denies any palpitations Vital Signs Period Temp Pulse Resp BP Sys/Padgett Pulse Ox Last 24 Hr 98.0 F-99.8 F 76-155 19-22 98-123/53-78 93-94 PE: Ax3 Neck: Supple Lungs:CTA CvS: S1S2 Abd: Benign EXt: No edema Neuro: No focal deficit CMP Sodium 142 mmol/L (136-145) 03/20/18 07:16 Potassium 3.6 mmol/L (3.5-5.1) 03/20/18 07:16 Chloride 112 mmol/L (98-107) H 03/20/18 07:16 Carbon Dioxide 24 mmol/L (21-32) 03/20/18 07:16 Anion Gap 7 MMOL/L (8-16) L 03/20/18 07:16 BUN 17 mg/dL (7-18) 03/20/18 07:16 Creatinine 0.9 mg/dL (0.55-1.3) 03/20/18 07:16 Creat Clearance w eGFR 59.09 (>60) 03/20/18 07:16 POC Glucometer 170 UNITS (80-120) 03/23/18 05:51 Random Glucose 99 mg/dL (74-106) 03/20/18 07:16 Hemoglobin A1c % 9.7 % (4.2-6.3) H 03/21/18 05:55 Calcium 8.1 mg/dL (8.5-10.1) L 03/20/18 07:16 Magnesium 1.9 mg/dL (1.8-2.4) 03/20/18 07:16 Total Bilirubin 0.6 mg/dL (0.2-1) 03/20/18 07:16 AST 18 U/L (15-37) 03/20/18 07:16 ALT 8 U/L (13-61) L 03/20/18 07:16 Alkaline Phosphatase 67 U/L (45-117) 03/20/18 07:16 Troponin I < 0.02 ng/ml (0.00-0.05) 03/20/18 07:16 Total Protein 5.9 g/dl (6.4-8.2) L 03/20/18 07:16 Albumin 2.6 g/dl (3.4-5.0) L 03/20/18 07:16 Triglycerides 161 mg/dL (0-150) H 03/21/18 05:55 Cholesterol 101 mg/dL (50-200) 03/21/18 05:55 Total LDL Cholesterol 53 mg/dL (5-100) 03/21/18 05:55 HDL Cholesterol 34 mg/dL (40-60) L 03/21/18 05:55 Vitamin B12 689 pg/ml (193-986) 03/21/18 05:55 Serum Folate 12 ng/mL (3.1-17.5) 03/21/18 05:55 TSH 0.90 uIU/ml (0.358-3.74) 03/21/18 05:55 Free T4 0.96 ng/dl (0.76-1.46) 03/21/18 05:55 Current Medications Generic Name Dose Route Start Last Admin Trade Name Freq PRN Reason Stop Dose Admin Acetaminophen 650 mg 03/19/18 23:48 03/23/18 06:20 Tylenol - PO 650 mg Q6H PRN Administration PAIN OR FEVER Amlodipine Besylate 10 mg 03/20/18 10:00 03/22/18 14:25 Norvasc - PO 10 mg DAILY [facility] Administration Apixaban 5 mg 03/21/18 12:30 03/22/18 22:06 Eliquis - PO 5 mg BID [facility] Administration Atorvastatin Calcium 20 mg 03/21/18 11:30 03/22/18 22:06 Lipitor - PO 20 mg HS [facility] Administration Carbidopa/Levodopa 1 each 03/19/18 14:00 03/23/18 06:20 Sinemet 25/100 - PO 1 each TID [facility] Administration Clotrimazole 1 applic 03/20/18 22:00 03/22/18 22:09 Lotrisone Cream (Small Tube) TP 1 applic BID [facility] Administration Gabapentin 200 mg 03/20/18 14:15 03/23/18 06:20 Neurontin - PO 200 mg TID [facility] Administration Insulin Aspart 1 units 03/22/18 22:00 03/22/18 22:08 Novolog SQ 1 units HS [facility] Administration Protocol Insulin Aspart 1 vial 03/22/18 16:30 03/23/18 06:22 Novolog Vial Sliding Scale - SQ 2 units TIDAC [facility] Administration Protocol Insulin Detemir 30 units 03/19/18 22:00 03/22/18 22:09 Levemir Vial SQ 30 units HS [facility] Administration Metoprolol Succinate 75 mg 03/22/18 22:00 03/22/18 22:07 Toprol Xl - PO 75 mg BID [facility] Administration Oxybutynin Chloride 5 mg 03/19/18 22:00 03/22/18 22:06 Ditropan - PO 5 mg BID [facility] Administration Sitagliptin Phosphate 100 mg 03/21/18 11:30 03/23/18 06:21 Januvia - PO 100 mg 0700 [facility] Administration AP: S/P Fall A Fib T2DM CAD HTN BGM QACHS Levemir 30 units daily Increase Novolog SS coverage Will F/U
[2018-03-23] MEDS: APIXABAN 5 MG TABLET PO SCH ×2 (09:40→22:16)
[2018-03-23] MEDS: amLODIPine BESYLATE 10 MG TABLET (FP) PO SCH (09:40)
[2018-03-23] MEDS: CLOTRIMAZOLE/BETAMET DIPROP 15 GM TUBE TP SCH ×2 (09:40→22:20)
[2018-03-23] MEDS: OXYBUTYNIN CHLORIDE 5 MG TABLET PO SCH ×2 (09:40→22:16)
[2018-03-23] MEDS: metoPROLOL SUCCINATE 25 MG TAB.SR.24H (FP) PO SCH (09:40)
--- NOTE | 2018-03-23 16:14 | EKG ---
Test Reason : Blood Pressure : / mmHG Vent. 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
--- NOTE | 2018-03-23 17:45 | PN ---
Progress Note, Physician Chief Complaint: fall History of Present Illness: answering but more lethargic than on thursday when i saw her last. developed rapid HRs yest and today, and BP trended down. she denies severe pain, "sometimes" in legs. denies sob, palpitations, cp O2 sats have been 92% and above on RA. cbc today--not anemic. ? dry--no BMP labs in few days. no cigs - Current Medication List Current Medications: Active Medications Acetaminophen (Tylenol -) 650 mg PO Q6H PRN PRN Reason: PAIN OR FEVER Last Admin: 03/23/18 06:20 Dose: 650 mg Amlodipine Besylate (Norvasc -) 10 mg PO DAILY [facility] Last Admin: 03/23/18 09:40 Dose: Not Given Apixaban (Eliquis -) 5 mg PO BID [facility] Last Admin: 03/23/18 09:40 Dose: 5 mg Atorvastatin Calcium (Lipitor -) 20 mg PO HS [facility] Last Admin: 03/22/18 22:06 Dose: 20 mg Carbidopa/Levodopa (Sinemet 25/100 -) 1 each PO TID [facility] Last Admin: 03/23/18 14:40 Dose: 1 each Clotrimazole (Lotrisone Cream (Small Tube)) 1 applic TP BID [facility] Last Admin: 03/23/18 09:40 Dose: 1 applic Gabapentin (Neurontin -) 200 mg PO TID [facility] Last Admin: 03/23/18 14:40 Dose: 200 mg Insulin Aspart (Novolog) 1 units SQ HS [facility]; Protocol Last Admin: 03/22/18 22:08 Dose: 1 units Insulin Aspart (Novolog Vial Sliding Scale -) 1 vial SQ TIDAC [facility]; Protocol Last Admin: 03/23/18 16:30 Dose: 5 units Insulin Detemir (Levemir Vial) [address] [facility] Last Admin: 03/22/18 22:09 Dose: 30 units Metoprolol Succinate (Toprol Xl -) 100 mg PO BID [facility] Oxybutynin Chloride (Ditropan -) 5 mg PO BID [facility] Last Admin: 03/23/18 09:40 Dose: 5 mg Sitagliptin Phosphate (Januvia -) 100 mg PO 0700 [facility] Last Admin: 03/23/18 06:21 Dose: 100 mg - Objective Vital Signs: Vital Signs Temperature 98.0 F 03/23/18 14:00 Pulse Rate 103 H 03/23/18 14:00 Respiratory Rate 21 H 03/23/18 14:00 Blood Pressure 99/63 03/23/18 14:00 O2 Sat by Pulse Oximetry (%) 92 L 03/23/18 09:00 Constitutional: Yes: No Distress, Calm Eyes: No: Sclera Icterus HENT: No: Nasal Congestion Cardiovascular: Yes: Pulse Irregular, JVD (possible (mild)), S1, S2, Other (PMI non diplaced). No: Gallop, Murmur Respiratory: Yes: CTA Bilaterally, Rales (base). No: Accessory Muscle Use, Wheezes Gastrointestinal: Yes: Normal Bowel Sounds, Soft. No: Tenderness Musculoskeletal: Yes: Other (No kyphosis) Extremities: No: Cyanosis Edema: No Integumentary: No: Jaundice Neurological: Yes: Alert, Oriented (x3) Psychiatric: No: Agitated Labs: CBC, BMP 03/23/18 07:55 03/20/18 07:16 INR, PTT INR 1.11 (0.83-1.09) H 03/19/18 09:00 Assessment/Plan ECG: afib, ? regularized Echo 03/22: nl LV/EF. LV mid-cavitary gradient present. RV normal size/fxn. present, cannot quantify severity. no peric effusion. s/p fall: -chronic bilat LE weakness--NOT NEW (and did not improve with prolonged holiday off statin in past) -per dr burch's team afib: -? regularized afib on ECG from ER. no bradycardia. pt not on digoxin at home as per my recollection, and not on home med list in ER -has PPM in place to prevent bradycardia -home toprol regimen 75 bid--received dosing qd for first 48 hrs of hospital stay, dose incr'd to bid yesterday. -03/23: rapid HRs yesterday and today to 150s--given extra metoprolol and incr' d to 100 bid. also digoxin x 1 today. -cont toprol 100 bid, start digoxin 0.125 qd (daily dig level ordered x 3). -doubt PE: no hypoxia, pt on AC at home (though of note she was on low dose eliquis), no CP or sob. currently on high dose eliquis which is treatment of choice regardless, and no signs cardiogenic shock. Echo yesterday RV normal. -check LE venous dopplers -CHADS VASC 6, hi risk for stroke. on eliquis at home--dose needs confirmation ( 5mg bid dose indicated here, not 2.5). -states she hit her head, CT head neg, no neuro deficits--d/w'd sarah bauer will continue AC. -i am not aware of recurrent falls recently (despite chronic LE weakness). need to clarify with dtr as pt lacks accurate short-term recall she says. rec PT eval for gait instability/falls risk--once pt evaluated by PT and/or goes to rehab, if felt to be high falls risk will need to reconsider AC CAD: -anginal episode in hosp few years ago when rapid AF, with ischemia on MPI then -has been asymptomatic on med mgmt regimen, with good AF control -cont home meds Ao stenosis: -recent outpt echo with evidence of progression to probably severe -she has been asymptomatic, with no CHF--TAVR not indicated -cont routine outpt observation with me HTN, now low bp: -bp's trending low to 90s today, ? due to incr'd BB dose -hold amlodipine to allow room for BB hr control -check bun/creat--? fluids challenge DM: -per primary team
[2018-03-23 19:54] LABS: ANION GAP 9 MMOL/L (8-16); BLOOD UREA NITROGEN 45 mg/dL (7-18); CALCIUM 8.3 mg/dL (8.5-10.1); CHLORIDE 109 mmol/L (98-107); CO2 22 mmol/L (21-32); CREATININE 1.3 mg/dL (0.55-1.3); GLUCOSE,RANDOM 209 mg/dL (74-106); POTASSIUM 4.4 mmol/L (3.5-5.1); SODIUM 140 mmol/L (136-145)
[2018-03-23] MEDS ORDERED: PT OWN MED DRAWER 7, Y5N ONE (21:59)
[2018-03-23] MEDS: ATORVASTATIN CA 20 MG TABLET (FP) PO SCH (22:16)
[2018-03-23] MEDS: Insulin (LOG) Aspart 100 UNITS/ML VIAL SQ SCH (22:18)
[2018-03-23] MEDS: INSULIN (LEVEMIR) 100 UNITS/ML UNITS SQ SCH (22:18)
[2018-03-24] MEDS: CARBIDOPA/LEVODOPA 25/100 TABLET (FP) PO SCH ×3 (06:49→21:23)
[2018-03-24] MEDS: GABAPENTIN 100 MG CAPSULE (FP) PO SCH ×3 (06:49→21:22)
[2018-03-24] MEDS: sitaGLIPtin PHOSPHATE 100 MG TABLET (FP) PO SCH (06:49)
[2018-03-24] MEDS: INSULIN SLIDING SCALE (NOVOLOG) 1 VIAL SQ SCH ×4 (06:55→21:28)
--- NOTE | 2018-03-24 07:52 | DS ---
Physical Examination Vital Signs: Vital Signs Temperature 98.9 F 03/24/18 05:21 Pulse Rate 110 H 03/24/18 05:21 Respiratory Rate 18 03/24/18 05:21 Blood Pressure 92/64 03/24/18 05:21 O2 Sat by Pulse Oximetry (%) 92 L 03/23/18 21:00 Labs: CBC, BMP 03/23/18 07:55 03/23/18 18:30 Discharge Summary Reason For Visit: URINARY TRACT INFECTION, WEAKNESS, FALL Current Active Problems Afib (Acute) Diabetes (Acute) Frequent falls (Acute) HTN (hypertension) (Acute) Laceration of wrist, left (Acute) Lumbar radiculopathy (Acute) UTI (urinary tract infection) (Acute) Condition: Improved - Instructions Referrals: John Pinzon MD [Primary Care Provider] - [facility] - Home Medications Comprehensive Discharge Medication List: Ambulatory Orders Amlodipine Besylate [Norvasc -] 10 mg PO DAILY #30 tablet 01/01/15 Atorvastatin Ca [Lipitor] 40 mg PO HS 03/19/18 Carbidopa/Levodopa [Carbidopa-Levodopa 25-100 Tab] 1 each PO TID 03/19/18 Insulin Glargine,Hum.rec.anlog [Lantus] 30 unit SQ HS 03/19/18 Oxybutynin Chloride 5 mg PO BID 03/19/18 Sitagliptin Phosphate [Januvia] 50 mg PO DAILY 03/19/18 Acetaminophen [Tylenol .Regular Strength -] 650 mg PO Q6H PRN tablet 03/24/18 Apixaban [Eliquis -] 5 mg PO BID tablet 03/24/18 Digoxin [Lanoxin -] 0.125 mg PO DAILY tablet 03/24/18 Insulin Sliding Scale [Novolog Vial Sliding Scale -] 1 vial SQ TIDAC units Metoprolol Succinate [Toprol XL -] 100 mg PO BID tab.sr.24h 03/24/18
--- NOTE | 2018-03-24 09:14 | PN ---
Progress Note (short form) - Note Progress Note: Neurology History of Present Illness 87F w/ pmhx of DM, HTN, HLD, DVT, A. fib s/p pacemaker placement, CAD presented to the ED s/p fall. Reportedly on day of admission, was getting up from her bed to go to the bathroom when she had fallen because of b/l leg weakness. She admited to hitting the back of her head, her R side of the body as well as her L wrist per notes. She denied losing consciousness. After she had fallen, she called her sister for help because she was not able to get up herself. She denied headaches, dizziness, vision changes, chest pain, sob, abd pain, urinary/ bowel symptoms, blood in urine/stool. Reportedly, per pt's sister, has a hx of multiple falls in the past. She was seen at [facility] a couple of months ago due to a fall. Additionally, the sister states she falls 1-2x/month, but is usually able to get up herself. She has been living alone in her house over the past month as her has been at rehab. While admitted, she completed noncontrast head CT which did not show any acute changes. Additionally, she completed carotid Dopplers which were also negative as well as CT of the cervical spine which did not show any fractures or subluxations. She does have underlying Parkinson's disease for which she is on Sinemet. EMG/NCS completed and shows B/L S1 radic and R L5 radic, r/o spinal stenosis at L3/L4 and L4/L5. Retrieved and reviewed and MRI L spine from 2015 which did show disc disease, compromised spinal canal with neural formina narrowing. CT L spine completed and with chronic degenerative changes noted, multilevel bulging but no acute issues and no mention of cord compression. Does c/o back pain, getting gabapentin and tylenol as below. Remains on sinemet as below. Allergies/Adverse Reactions: Allergies Allergy/AdvReac Type Severity Reaction Status Date / Time No Known Drug Allergies Allergy Verified 03/19/18 08:39 Active Medications Acetaminophen (Tylenol -) 650 mg PO Q6H PRN PRN Reason: PAIN OR FEVER Last Admin: 03/23/18 17:58 Dose: 650 mg Apixaban (Eliquis -) 5 mg PO BID [facility] Last Admin: 03/23/18 22:16 Dose: 5 mg Atorvastatin Calcium (Lipitor -) 20 mg PO HS [facility] Last Admin: 03/23/18 22:16 Dose: 20 mg Carbidopa/Levodopa (Sinemet 25/100 -) 1 each PO TID [facility] Last Admin: 03/24/18 06:49 Dose: 1 each Clotrimazole (Lotrisone Cream (Small Tube)) 1 applic TP BID [facility] Last Admin: 03/23/18 22:20 Dose: 1 applic Digoxin (Lanoxin -) 0.125 mg PO DAILY [facility] Gabapentin (Neurontin -) 200 mg PO TID [facility] Last Admin: 03/24/18 06:49 Dose: 200 mg Insulin Aspart (Novolog) 1 units SQ HS [facility]; Protocol Last Admin: 03/23/18 22:18 Dose: 1 units Insulin Aspart (Novolog Vial Sliding Scale -) 1 vial SQ TIDAC [facility]; Protocol Last Admin: 03/24/18 06:55 Dose: 3 units Insulin Detemir (Levemir Vial) 30 units SQ [facility] Last Admin: 03/23/18 22:18 Dose: 30 units Metoprolol Succinate (Toprol Xl -) 100 mg PO BID [facility] Last Admin: 03/23/18 22:16 Dose: 100 mg Oxybutynin Chloride (Ditropan -) 5 mg PO BID [facility] Last Admin: 03/23/18 22:16 Dose: 5 mg Polyethylene Glycol (Miralax (For Daily Use) -) 17 gm PO BID [facility] Sitagliptin Phosphate (Januvia -) 100 mg PO 0700 [facility] Last Admin: 03/24/18 06:49 Dose: 100 mg *Physical Exam Vital Signs Period Temp Pulse Resp BP Sys/Padgett Pulse Ox Last 24 Hr 98.0 F-100 F 103-126 18-21 92-118/50-86 92 Gen: AAOx3 (person, place time), NAD HEENT: Atraumatic, EOMI, ROLO. Dry mucus membranes, dried blood noted in oral mucosa. Posterior neck point tenderness. Lungs: CTA B/L. Symmetric chest rise. Heart: RRR, normal S1, S2. No murmurs noted. Abd: Soft, NT/ND. +BS in all 4 Qs. No bruits/masses noted. MSK: 3x1cm laceration noted on dorsum of L wrist, bloody. 1+ dorsalis pedis pulses b/l. 2+ radial pulses b/l. Extremities: 5/5 strength b/l UE. 5/5 strength LLE. 3/5 strength RLE. Neuro: Facial symmetry noted. Facial muscles intact. Moves extremtities grossly , B/l sensation in face and u/l b/l extremities intact. Gait deferred CBCD WBC 8.9 K/mm3 (4.0-10.0) 03/23/18 07:55 RBC 4.34 M/mm3 (3.60-5.2) 03/23/18 07:55 Hgb 12.5 GM/dL (10.7-15.3) 03/23/18 07:55 Hct 37.9 % (32.4-45.2) 03/23/18 07:55 MCV 87.4 fl (80-96) 03/23/18 07:55 MCHC 33.0 g/dl (32.0-36.0) 03/23/18 07:55 RDW 13.8 % (11.6-15.6) 03/23/18 07:55 Plt Count 155 K/MM3 (134-434) 03/23/18 07:55 MPV 10.3 fl (7.5-11.1) 03/23/18 07:55 CMP Sodium 140 mmol/L (136-145) 03/23/18 18:30 Potassium 4.4 mmol/L (3.5-5.1) 03/23/18 18:30 Chloride 109 mmol/L (98-107) H 03/23/18 18:30 Carbon Dioxide 22 mmol/L (21-32) 03/23/18 18:30 Anion Gap 9 MMOL/L (8-16) 03/23/18 18:30 BUN 45 mg/dL (7-18) H 03/23/18 18:30 Creatinine 1.3 mg/dL (0.55-1.3) 03/23/18 18:30 Creat Clearance w eGFR 38.66 (>60) 03/23/18 18:30 Random Glucose 209 mg/dL (74-106) H 03/23/18 18:30 Calcium 8.3 mg/dL (8.5-10.1) L 03/23/18 18:30 Total Bilirubin 0.6 mg/dL (0.2-1) 03/20/18 07:16 AST 18 U/L (15-37) 03/20/18 07:16 ALT 8 U/L (13-61) L 03/20/18 07:16 Alkaline Phosphatase 67 U/L (45-117) 03/20/18 07:16 Total Protein 5.9 g/dl (6.4-8.2) L 03/20/18 07:16 Albumin 2.6 g/dl (3.4-5.0) L 03/20/18 07:16 CARDIAC ENZYMES Troponin I < 0.02 ng/ml (0.00-0.05) 03/20/18 07:16 Medical Decision Making 87F w/ pmhx of DM, HTN, HLD, DVT, A. fib s/p pacemaker placement, CAD presented to the ED s/p fall. Reportedly on day of admission, was getting up from her bed to go to the bathroom when she had fallen because of b/l leg weakness. She admited to hitting the back of her head, her R side of the body as well as her L wrist per notes. She denied losing consciousness. Reportedly, per pt's sister , has a hx of multiple falls in the past. She was seen at [facility] a couple of months ago due to a fall. Additionally, the sister states she falls 1- 2x/month, but is usually able to get up herself. She has been living alone in her house over the past month as her has been at rehab. While admitted, she completed noncontrast head CT which did not show any acute changes. Additionally, she completed carotid Dopplers which were also negative as well as CT of the cervical spine which did not show any fractures or subluxations. She does have underlying Parkinson's disease for which she is on Sinemet. EMG/ NCS completed and shows B/L S1 radic and R L5 radic, r/o spinal stenosis at L3/ L4 and L4/L5. Retrieved and reviewed and MRI L spine from 2014 which did show disc disease, compromised spinal canal with neural formina narrowing. CT L spine reviewed, multilevel changes noted, chronic appearing. Continue physical therapy and possibly short-term rehabilitation. Multifactorial gait disorder with underlying Parkinson's disease along with age-related spinal stenosis. Would pursue conservative mgmt. Fall precautions recommended, DVT prophylaxis,, continue management of underlying urinary tract infection. Follow-up cardiology regarding atrial fibrillationas well as monitor blood pressure, maintain normotensive range.
[2018-03-24 09:18] LABS: BLOOD UREA NITROGEN 45 mg/dL (7-18); CREATININE 1.3 mg/dL (0.55-1.3); GLUCOSE,RANDOM 209 mg/dL (74-106); SODIUM 140 mmol/L (136-145)
[2018-03-24 09:19] LABS: ANION GAP 9 MMOL/L (8-16); CALCIUM 8.3 mg/dL (8.5-10.1); CHLORIDE 109 mmol/L (98-107); CO2 22 mmol/L (21-32); POTASSIUM 4.4 mmol/L (3.5-5.1)
[2018-03-24] MEDS: DIGOXIN 0.125 MG TABLET (FP) PO SCH (10:19)
[2018-03-24] MEDS: APIXABAN 5 MG TABLET PO SCH ×2 (10:19→21:23)
[2018-03-24] MEDS: OXYBUTYNIN CHLORIDE 5 MG TABLET PO SCH ×2 (10:19→21:23)
[2018-03-24] MEDS: CLOTRIMAZOLE/BETAMET DIPROP 15 GM TUBE TP SCH ×2 (10:20→21:31)
[2018-03-24] MEDS: POLYETHYLENE GLYCOL 3350 119 GM BTL PO SCH ×2 (10:53→21:23)
[2018-03-24] MEDS ORDERED: INSULIN (NOVOLOG) ASPART 100 UNITS/ML 10ML VIAL ONE (11:47)
--- NOTE | 2018-03-24 12:11 | PN ---
Progress Note (short form) - Note Progress Note: Events noted Blood sugar 200s No hypos Vital Signs Period Temp Pulse Resp BP Sys/Padgett Pulse Ox Last 24 Hr 98.0 F-100 F 103-134 18-22 92-117/63-86 92 PE: Ax3 Neck: Supple Lungs:CTA CvS: S1S2 Abd: Benign EXt: No edema Neuro: No focal deficit CMP Sodium 140 mmol/L (136-145) 03/24/18 06:30 Potassium 4.4 mmol/L (3.5-5.1) 03/24/18 06:30 Chloride 109 mmol/L (98-107) H 03/24/18 06:30 Carbon Dioxide 22 mmol/L (21-32) 03/24/18 06:30 Anion Gap 9 MMOL/L (8-16) 03/24/18 06:30 BUN 45 mg/dL (7-18) H 03/24/18 06:30 Creatinine 1.3 mg/dL (0.55-1.3) 03/24/18 06:30 Creat Clearance w eGFR 38.66 (>60) 03/24/18 06:30 POC Glucometer 265 UNITS (80-120) 03/24/18 11:10 Random Glucose 209 mg/dL (74-106) H 03/24/18 06:30 Hemoglobin A1c % 9.7 % (4.2-6.3) H 03/21/18 05:55 Calcium 8.3 mg/dL (8.5-10.1) L 03/24/18 06:30 Magnesium 1.9 mg/dL (1.8-2.4) 03/20/18 07:16 Total Bilirubin 0.6 mg/dL (0.2-1) 03/20/18 07:16 AST 18 U/L (15-37) 03/20/18 07:16 ALT 8 U/L (13-61) L 03/20/18 07:16 Alkaline Phosphatase 67 U/L (45-117) 03/20/18 07:16 Troponin I < 0.02 ng/ml (0.00-0.05) 03/20/18 07:16 Total Protein 5.9 g/dl (6.4-8.2) L 03/20/18 07:16 Albumin 2.6 g/dl (3.4-5.0) L 03/20/18 07:16 Triglycerides 161 mg/dL (0-150) H 03/21/18 05:55 Cholesterol 101 mg/dL (50-200) 03/21/18 05:55 Total LDL Cholesterol 53 mg/dL (5-100) 03/21/18 05:55 HDL Cholesterol 34 mg/dL (40-60) L 03/21/18 05:55 Vitamin B12 689 pg/ml (193-986) 03/21/18 05:55 Serum Folate 12 ng/mL (3.1-17.5) 03/21/18 05:55 TSH 0.90 uIU/ml (0.358-3.74) 03/21/18 05:55 Free T4 0.96 ng/dl (0.76-1.46) 03/21/18 05:55 Current Medications Generic Name Dose Route Start Last Admin Trade Name Freq PRN Reason Stop Dose Admin Acetaminophen 650 mg 03/19/18 23:48 03/23/18 17:58 Tylenol - PO 650 mg Q6H PRN Administration PAIN OR FEVER Apixaban 5 mg 03/21/18 12:30 03/24/18 10:19 Eliquis - PO 5 mg BID [facility] Administration Atorvastatin Calcium 20 mg 03/21/18 11:30 03/23/18 22:16 Lipitor - PO 20 mg HS [facility] Administration Carbidopa/Levodopa 1 each 03/19/18 14:00 03/24/18 06:49 Sinemet 25/100 - PO 1 each TID [facility] Administration Clotrimazole 1 applic 03/20/18 22:00 03/24/18 10:20 Lotrisone Cream (Small Tube) TP 1 applic BID [facility] Administration Digoxin 0.125 mg 03/24/18 10:00 03/24/18 10:19 Lanoxin - PO 0.125 mg DAILY [facility] Administration Gabapentin 200 mg 03/20/18 14:15 03/24/18 06:49 Neurontin - PO 200 mg TID [facility] Administration Insulin Aspart 1 units 03/22/18 22:00 03/23/18 22:18 Novolog SQ 1 units HS [facility] Administration Protocol Insulin Aspart 1 vial 03/23/18 16:30 03/24/18 11:48 Novolog Vial Sliding Scale - SQ 5 units TIDAC [facility] Administration Protocol Insulin Detemir 30 units 03/19/18 22:00 03/23/18 22:18 Levemir Vial SQ 30 units HS [facility] Administration Metoprolol Succinate 100 mg 03/23/18 22:00 03/24/18 10:19 Toprol Xl - PO 100 mg BID [facility] Administration Oxybutynin Chloride 5 mg 03/19/18 22:00 03/24/18 10:19 Ditropan - PO 5 mg BID [facility] Administration Polyethylene Glycol 17 gm 03/24/18 10:00 03/24/18 10:53 Miralax (For Daily Use) - PO 17 gm BID [facility] Administration Sitagliptin Phosphate 100 mg 03/21/18 11:30 03/24/18 06:49 Januvia - PO 100 mg 0700 [facility] Administration AP: S/P Fall A Fib T2DM CAD HTN BGM QACHS Levemir 30 units daily Increase Novolog SS coverage Januvia 100mg QD Will F/U
--- NOTE | 2018-03-24 16:34 | PN ---
Progress Note (short form) - Note Progress Note: Chief Complaint: fall History of Present Illness: lethargic, not communicating well, had phillips placed 2/2 urinary retention no cigs - Current Medication List Current Medications Generic Name Dose Route Start Last Admin Trade Name Freq PRN Reason Stop Dose Admin Acetaminophen 650 mg 03/19/18 23:48 03/23/18 17:58 Tylenol - PO 650 mg Q6H PRN Administration PAIN OR FEVER Apixaban 5 mg 03/21/18 12:30 03/24/18 10:19 Eliquis - PO 5 mg BID ABDON Administration Atorvastatin Calcium 20 mg 03/21/18 11:30 03/23/18 22:16 Lipitor - PO 20 mg HS ABDON Administration Carbidopa/Levodopa 1 each 03/19/18 14:00 03/24/18 14:21 Sinemet 25/100 - PO 1 each TID ABDON Administration Clotrimazole 1 applic 03/20/18 22:00 03/24/18 10:20 Lotrisone Cream (Small Tube) TP 1 applic BID ABDON Administration Digoxin 0.125 mg 03/24/18 10:00 03/24/18 10:19 Lanoxin - PO 0.125 mg DAILY ABDON Administration Gabapentin 200 mg 03/20/18 14:15 03/24/18 14:21 Neurontin - PO 200 mg TID ABDON Administration Insulin Aspart 1 vial 03/24/18 22:00 Novolog Vial Sliding Scale - SQ HS [facility] Protocol Insulin Aspart 1 vial 03/24/18 12:13 Novolog Vial Sliding Scale - SQ TIDAC [facility] Protocol Insulin Detemir 30 units 03/19/18 22:00 03/23/18 22:18 Levemir Vial SQ 30 units HS ABDON Administration Metoprolol Succinate 100 mg 03/23/18 22:00 03/24/18 10:19 Toprol Xl - PO 100 mg BID ABDON Administration Oxybutynin Chloride 5 mg 03/19/18 22:00 03/24/18 10:19 Ditropan - PO 5 mg BID A[facility]ON Administration Polyethylene Glycol 17 gm 03/24/18 10:00 03/24/18 10:53 Miralax (For Daily Use) - PO 17 gm BID ABDON Administration Sitagliptin Phosphate 100 mg 03/21/18 11:30 03/24/18 06:49 Januvia - PO 100 mg 0700 ABDON Administration - Objective Vital Signs: Vital Signs Period Temp Pulse Resp BP Sys/Padgett Pulse Ox Last 24 Hr 98.0 F-100 F 110-134 18-22 92-117/64-86 92 Constitutional: Yes: No Distress, Calm Eyes: No: Sclera Icterus HENT: No: Nasal Congestion Cardiovascular: Yes: Pulse tachy, Irregular, JVD (possible (mild)), S1, S2, Other (PMI non diplaced). No: Gallop, Murmur Respiratory: Yes: CTA Bilaterally, poor eff. No: Accessory Muscle Use, Wheezes Gastrointestinal: Yes: Normal Bowel Sounds, Soft. No: Tenderness Extremities: No: Cyanosis Edema: No Integumentary: No: Jaundice diaphoresis Neurological: lethargic Psychiatric: No: Agitated Labs: CBC, BMP 03/23/18 07:55 03/24/18 06:30 ECG: afib, ? regularized Echo 03/22: nl LV/EF. LV mid-cavitary gradient present. RV normal size/fxn. present, cannot quantify severity. no peric effusion. Assessment/Plan s/p fall: -chronic bilat LE weakness--NOT NEW (and did not improve with prolonged holiday off statin in past) -per dr burch's team afib: -? regularized afib on ECG from ER. no bradycardia. pt not on digoxin at home as per my recollection, and not on home med list in ER -has PPM in place to prevent bradycardia -home toprol regimen 75 bid--received dosing qd for first 48 hrs of hospital stay, dose incr'd to bid yesterday. -03/23: rapid HRs yesterday and today to 150s--given extra metoprolol and incr' d to 100 bid. also digoxin x 1 today. -cont toprol 100 bid, start digoxin 0.125 qd (daily dig level ordered x 3). -03/24: still with rvr today, possibly related to urinary retention?,now has phillips in. Cont same dig and toprol. If HR remains fast will add amio as her bp is too low for further toprol or ccb. -doubt PE: no hypoxia, pt on AC at home (though of note she was on low dose eliquis), no CP or sob. currently on high dose eliquis which is treatment of choice regardless, and no signs cardiogenic shock. Echo here with RV normal. -CHADS VASC 6, hi risk for stroke. on eliquis at home, cont 5 bid -states she hit her head, CT head neg, no neuro deficits--d/w'd sarah bauer will continue AC. -rec PT eval for gait instability/falls risk--once pt evaluated by PT and/or goes to rehab, if felt to be high falls risk will need to reconsider AC CAD: -anginal episode in hosp few years ago when rapid AF, with ischemia on MPI then -has been asymptomatic on med mgmt regimen, with good AF control -cont home meds Ao stenosis: -recent outpt echo with evidence of progression to probably severe -she has been asymptomatic, with no CHF--TAVR not indicated -cont routine outpt observation with me HTN, now low bp: -bp's trending low to 90s ? due to incr'd BB dose -hold amlodipine to allow room for BB hr control DM: -per primary team
[2018-03-24] MEDS: ACETAMINOPHEN 325 MG TABLET (FP) PO PRN (17:18)
[2018-03-24] MEDS: ATORVASTATIN CA 20 MG TABLET (FP) PO SCH (21:23)
[2018-03-24] MEDS ORDERED: CEFTRIAXONE 2 GM-D5W BAG 2 GM/50 ML BAG IVPB ONE (21:25)
[2018-03-24] MEDS: INSULIN (LEVEMIR) 100 UNITS/ML UNITS SQ SCH (21:29)
[2018-03-24] MEDS ORDERED: CEFTRIAXONE 2 GM in DEXTROSE 5%-WATER 100 ML IVPB ONE (21:45)
[2018-03-24] MEDS ORDERED: DEXTROSE 5%-WATER 100 ML IVPB ONE (21:50)
[2018-03-24] MEDS: SODIUM CHLORIDE 0.45%/POT 20 MEQ/1,000 ML INFUS.BAG IV SCH (21:53)
[2018-03-24 22:37] LABS: URINE APPEARANCE CLEAR; URINE BILIRUBIN NEGATIVE (<2.0 mg/dL); URINE COLOR YELLOW; URINE GLUCOSE (UA) NEGATIVE (NEGATIVE); URINE KETONE NEGATIVE (NEGATIVE); URINE LEUK ESTERASE NEGATIVE (NEGATIVE); URINE NITRITE NEGATIVE (NEGATIVE); URINE PROTEIN NEGATIVE (NEGATIVE); URINE UROBILINOGEN NEGATIVE mg/dL (0.2-1.0)
[2018-03-25] MEDS: ACETAMINOPHEN 325 MG TABLET (FP) PO PRN ×3 (00:28→20:24)
[2018-03-25] MEDS: CARBIDOPA/LEVODOPA 25/100 TABLET (FP) PO SCH ×3 (06:25→22:40)
[2018-03-25] MEDS: sitaGLIPtin PHOSPHATE 100 MG TABLET (FP) PO SCH (06:25)
[2018-03-25] MEDS: GABAPENTIN 100 MG CAPSULE (FP) PO SCH ×3 (06:25→22:40)
[2018-03-25] MEDS: INSULIN SLIDING SCALE (NOVOLOG) 1 VIAL SQ SCH ×4 (06:31→22:45)
[2018-03-25 08:19] LABS: BASO % 0.9 % (0-2.0); EOS % 1.3 % (0-4.5); HEMATOCRIT 35.4 % (32.4-45.2); HEMOGLOBIN 11.1 GM/dL (10.7-15.3); LYMPH % 17.9 % (8-40); MCH 27.6 pg (25.7-33.7); MCHC 31.4 g/dl (32.0-36.0); MEAN CELL VOLUME 87.8 fl (80-96); MEAN PLT VOLUME 10.2 fl (7.5-11.1); MONO % 10.5 % (3.8-10.2); NEUT % 69.4 % (42.8-82.8); PLATELET COUNT 160 K/MM3 (134-434); RBC 4.03 M/mm3 (3.60-5.2); WHITE BLOOD COUNT 6.7 K/mm3 (4.0-10.0)
--- NOTE | 2018-03-25 08:23 | PN ---
Progress Note, Physician History of Present Illness: c/o weakness generalized aches - Current Medication List Current Medications: Active Medications Acetaminophen (Tylenol -) 650 mg PO Q6H PRN PRN Reason: PAIN OR FEVER Last Admin: 03/25/18 06:25 Dose: 650 mg Apixaban (Eliquis -) 5 mg PO BID [facility] Last Admin: 03/24/18 21:23 Dose: 5 mg Atorvastatin Calcium (Lipitor -) 20 mg PO HS [facility] Last Admin: 03/24/18 21:23 Dose: 20 mg Carbidopa/Levodopa (Sinemet 25/100 -) 1 each PO TID [facility] Last Admin: 03/25/18 06:25 Dose: 1 each Clotrimazole (Lotrisone Cream (Small Tube)) 1 applic TP BID [facility] Last Admin: 03/24/18 21:31 Dose: 1 applic Digoxin (Lanoxin -) 0.125 mg PO DAILY [facility] Last Admin: 03/24/18 10:19 Dose: 0.125 mg Gabapentin (Neurontin -) 200 mg PO TID [facility] Last Admin: 03/25/18 06:25 Dose: 200 mg Potassium Chloride/Sodium Chloride (1/2ns+20meq Kcl) 20 meq in 1,000 mls @ 83 mls/hr IV ASDIR [facility] Last Admin: 03/24/18 21:53 Dose: 83 mls/hr Insulin Aspart (Novolog Vial Sliding Scale -) 1 vial SQ [facility]; Protocol Last Admin: 03/24/18 21:28 Dose: 2 units Insulin Aspart (Novolog Vial Sliding Scale -) 1 vial SQ TIDAC [facility]; Protocol Last Admin: 03/25/18 06:31 Dose: 4 units Insulin Detemir (Levemir Vial) 30 units SQ [facility] Last Admin: 03/24/18 21:29 Dose: 30 units Metoprolol Succinate (Toprol Xl -) 100 mg PO BID [facility] Last Admin: 03/24/18 21:53 Dose: 100 mg Oxybutynin Chloride (Ditropan -) 5 mg PO BID [facility] Last Admin: 03/24/18 21:23 Dose: 5 mg Polyethylene Glycol (Miralax (For Daily Use) -) 17 gm PO BID [facility] Last Admin: 03/24/18 21:23 Dose: 17 gm Sitagliptin Phosphate (Januvia -) 100 mg PO 0700 [facility] Last Admin: 03/25/18 06:25 Dose: 100 mg - Objective Vital Signs: Vital Signs Temperature 98.1 F 03/25/18 05:55 Pulse Rate 128 H 03/25/18 05:55 Respiratory Rate 20 03/25/18 05:55 Blood Pressure 115/68 03/25/18 05:55 O2 Sat by Pulse Oximetry (%) 94 L 03/24/18 21:00 Cardiovascular: Yes: S1, S2 Respiratory: Yes: Regular, CTA Bilaterally, On Nasal O2 Gastrointestinal: Yes: Normal Bowel Sounds, Soft Edema: No Labs: INR, PTT INR 1.11 (0.83-1.09) H 03/19/18 09:00 Assessment/Plan Problems (1) Frequent falls Assessment/Plan: carotid doppler negative ct head negatie EMG bilateral S1 radiculopathies no polymyopathy or neuropathy will get ct lumbar spine to r/o L3L4 stenosis will need snf placement-strenghtening PT/OT Code(s): R29.6 - REPEATED FALLS (2) Afib Assessment/Plan: eliquis toprol increased and dig added--monitor Code(s): I48.91 - UNSPECIFIED ATRIAL FIBRILLATION (3) Diabetes Assessment/Plan: levemir hga1c noted - sliding scale januvia Code(s): E11.9 - TYPE 2 DIABETES MELLITUS WITHOUT COMPLICATIONS Qualifiers: Diabetes mellitus type: type 2 (4) Lumbar radiculopathy Assessment/Plan: lumbar spine ct scan to look for L3-L4 stenosis on neurontin Code(s): M54.16 - RADICULOPATHY, LUMBAR REGION (5) HTN (hypertension) Assessment/Plan: norvas Code(s): I10 - ESSENTIAL (PRIMARY) HYPERTENSION (6) Dehydration Assessment/Plan: Ivf Monitor (7) Positive Troponin Assessment/Plan: Trending down--maybe demand from afib
[2018-03-25 08:58] LABS: ALK PHOS 67 U/L (45-117); ANION GAP 9 MMOL/L (8-16); BILIRUBIN,TOTAL 0.3 mg/dL (0.2-1); BLOOD UREA NITROGEN 47 mg/dL (7-18); CALCIUM 7.8 mg/dL (8.5-10.1); CHLORIDE 111 mmol/L (98-107); CO2 20 mmol/L (21-32); CREATININE 1.1 mg/dL (0.55-1.3); GLUCOSE,RANDOM 163 mg/dL (74-106); POTASSIUM 4.4 mmol/L (3.5-5.1); SGOT/AST 129 U/L (15-37); SGPT/ALT 30 U/L (13-61); SODIUM 141 mmol/L (136-145); TOT PROT 5.6 g/dl (6.4-8.2)
--- NOTE | 2018-03-25 09:29 | PN ---
Progress Note (short form) - Note Progress Note: Neurology History of Present Illness 87F w/ pmhx of DM, HTN, HLD, DVT, A. fib s/p pacemaker placement, CAD presented to the ED s/p fall. Reportedly on day of admission, was getting up from her bed to go to the bathroom when she had fallen because of b/l leg weakness. She admited to hitting the back of her head, her R side of the body as well as her L wrist per notes. She denied losing consciousness. After she had fallen, she called her sister for help because she was not able to get up herself. She denied headaches, dizziness, vision changes, chest pain, sob, abd pain, urinary/ bowel symptoms, blood in urine/stool. Reportedly, per pt's sister, has a hx of multiple falls in the past. She was seen at [facility] a couple of months ago due to a fall. Additionally, the sister states she falls 1-2x/month, but is usually able to get up herself. She has been living alone in her house over the past month as her has been at rehab. While admitted, she completed noncontrast head CT which did not show any acute changes. Additionally, she completed carotid Dopplers which were also negative as well as CT of the cervical spine which did not show any fractures or subluxations. She does have underlying Parkinson's disease for which she is on Sinemet. EMG/NCS completed and shows B/L S1 radic and R L5 radic, r/o spinal stenosis at L3/L4 and L4/L5. Retrieved and reviewed and MRI L spine from 2014 which did show disc disease, compromised spinal canal with neural formina narrowing. CT L spine completed and with chronic degenerative changes noted, multilevel bulging but no acute issues and no mention of cord compression. Does c/o back pain, getting gabapentin and tylenol as below. Remains on sinemet as below. No new neurologic events, being managed conservatively. Getting medical mgmt. Allergies/Adverse Reactions: Allergies Allergy/AdvReac Type Severity Reaction Status Date / Time No Known Drug Allergies Allergy Verified 03/19/18 08:39 Active Medications Acetaminophen (Tylenol -) 650 mg PO Q6H PRN PRN Reason: PAIN OR FEVER Last Admin: 03/25/18 06:25 Dose: 650 mg Apixaban (Eliquis -) 5 mg PO BID [facility] Last Admin: 03/24/18 21:23 Dose: 5 mg Atorvastatin Calcium (Lipitor -) 20 mg PO HS [facility] Last Admin: 03/24/18 21:23 Dose: 20 mg Carbidopa/Levodopa (Sinemet 25/100 -) 1 each PO TID [facility] Last Admin: 03/25/18 06:25 Dose: 1 each Clotrimazole (Lotrisone Cream (Small Tube)) 1 applic TP BID [facility] Last Admin: 03/24/18 21:31 Dose: 1 applic Digoxin (Lanoxin -) 0.125 mg PO DAILY [facility] Last Admin: 03/24/18 10:19 Dose: 0.125 mg Gabapentin (Neurontin -) 200 mg PO TID [facility] Last Admin: 03/25/18 06:25 Dose: 200 mg Potassium Chloride/Sodium Chloride (1/2ns+20meq Kcl) 20 meq in 1,000 mls @ 83 mls/hr IV ASDIR [facility] Last Admin: 03/24/18 21:53 Dose: 83 mls/hr Insulin Aspart (Novolog Vial Sliding Scale -) 1 vial SQ [facility]; Protocol Last Admin: 03/24/18 21:28 Dose: 2 units Insulin Aspart (Novolog Vial Sliding Scale -) 1 vial SQ TIDAC [facility]; Protocol Last Admin: 03/25/18 06:31 Dose: 4 units Insulin Detemir (Levemir Vial) 30 units SQ [facility] Last Admin: 03/24/18 21:29 Dose: 30 units Metoprolol Succinate (Toprol Xl -) 100 mg PO BID [facility] Last Admin: 03/24/18 21:53 Dose: 100 mg Oxybutynin Chloride (Ditropan -) 5 mg PO BID [facility] Last Admin: 03/24/18 21:23 Dose: 5 mg Polyethylene Glycol (Miralax (For Daily Use) -) 17 gm PO BID [facility] Last Admin: 03/24/18 21:23 Dose: 17 gm Sitagliptin Phosphate (Januvia -) 100 mg PO 0700 [facility] Last Admin: 03/25/18 06:25 Dose: 100 mg *Physical Exam Vital Signs Period Temp Pulse Resp BP Sys/Padgett Pulse Ox Last 24 Hr 98.1 F-99.7 F 127-134 20-22 97-121/66-79 94 Gen: AAOx3 (person, place time), NAD HEENT: Atraumatic, EOMI, ROLO. Dry mucus membranes, dried blood noted in oral mucosa. Posterior neck point tenderness. Lungs: CTA B/L. Symmetric chest rise. Heart: RRR, normal S1, S2. No murmurs noted. Abd: Soft, NT/ND. +BS in all 4 Qs. No bruits/masses noted. MSK: 3x1cm laceration noted on dorsum of L wrist, bloody. 1+ dorsalis pedis pulses b/l. 2+ radial pulses b/l. Extremities: 5/5 strength b/l UE. 5/5 strength LLE. 3/5 strength RLE. Neuro: Facial symmetry noted. Facial muscles intact. Moves extremtities grossly , B/l sensation in face and u/l b/l extremities intact. Gait deferred CBCD WBC 6.7 K/mm3 (4.0-10.0) 03/25/18 07:05 RBC 4.03 M/mm3 (3.60-5.2) 03/25/18 07:05 Hgb 11.1 GM/dL (10.7-15.3) 03/25/18 07:05 Hct 35.4 % (32.4-45.2) 03/25/18 07:05 MCV 87.8 fl (80-96) 03/25/18 07:05 MCHC 31.4 g/dl (32.0-36.0) L 03/25/18 07:05 RDW 14.0 % (11.6-15.6) 03/25/18 07:05 Plt Count 160 K/MM3 (134-434) 03/25/18 07:05 MPV 10.2 fl (7.5-11.1) 03/25/18 07:05 CMP Sodium 141 mmol/L (136-145) 03/25/18 07:05 Potassium 4.4 mmol/L (3.5-5.1) 03/25/18 07:05 Chloride 111 mmol/L (98-107) H 03/25/18 07:05 Carbon Dioxide 20 mmol/L (21-32) L 03/25/18 07:05 Anion Gap 9 MMOL/L (8-16) 03/25/18 07:05 BUN 47 mg/dL (7-18) H 03/25/18 07:05 Creatinine 1.1 mg/dL (0.55-1.3) 03/25/18 07:05 Creat Clearance w eGFR 46.88 (>60) 03/25/18 07:05 Random Glucose 163 mg/dL (74-106) H 03/25/18 07:05 Calcium 7.8 mg/dL (8.5-10.1) L 03/25/18 07:05 Total Bilirubin 0.3 mg/dL (0.2-1) 03/25/18 07:05 AST 129 U/L (15-37) H 03/25/18 07:05 ALT 30 U/L (13-61) 03/25/18 07:05 Alkaline Phosphatase 67 U/L (45-117) 03/25/18 07:05 Total Protein 5.6 g/dl (6.4-8.2) L 03/25/18 07:05 Albumin 2.0 g/dl (3.4-5.0) L 03/25/18 07:05 CARDIAC ENZYMES Creatine Kinase 69 IU/L (26-192) 03/25/18 07:05 Troponin I 0.06 ng/ml (0.00-0.05) H 03/25/18 07:05 Medical Decision Making 87F w/ pmhx of DM, HTN, HLD, DVT, A. fib s/p pacemaker placement, CAD presented to the ED s/p fall. Reportedly on day of admission, was getting up from her bed to go to the bathroom when she had fallen because of b/l leg weakness. She admited to hitting the back of her head, her R side of the body as well as her L wrist per notes. She denied losing consciousness. Reportedly, per pt's sister , has a hx of multiple falls in the past. She was seen at [facility] a couple of months ago due to a fall. Additionally, the sister states she falls 1- 2x/month, but is usually able to get up herself. She has been living alone in her house over the past month as her has been at rehab. While admitted, she completed noncontrast head CT which did not show any acute changes. Additionally, she completed carotid Dopplers which were also negative as well as CT of the cervical spine which did not show any fractures or subluxations. She does have underlying Parkinson's disease for which she is on Sinemet. EMG/NCS completed and shows B/L S1 radic and R L5 radic, r/o spinal stenosis at L3/L4 and L4/L5. Retrieved and reviewed and MRI L spine from 2015 which did show disc disease, compromised spinal canal with neural formina narrowing. CT L spine reviewed, multilevel changes noted, chronic appearing. Continue physical therapy and possibly short-term rehabilitation. Multifactorial gait disorder with underlying Parkinson's disease along with age- related spinal stenosis. Would pursue conservative mgmt. Fall precautions recommended, DVT prophylaxis,, continue management of underlying urinary tract infection. Follow-up cardiology regarding atrial fibrillation as well as monitor blood pressure, maintain normotensive range. Medical optimization DVT ppx Likely for rehab placement when medically stable
[2018-03-25] MEDS ORDERED: PT OWN MED DRAWER 7, Y5N ONE (09:45)
[2018-03-25] MEDS: OXYBUTYNIN CHLORIDE 5 MG TABLET PO SCH ×2 (09:49→22:40)
[2018-03-25] MEDS: DIGOXIN 0.125 MG TABLET (FP) PO SCH (09:49)
[2018-03-25] MEDS: POLYETHYLENE GLYCOL 3350 119 GM BTL PO SCH ×2 (09:50→22:41)
[2018-03-25] MEDS: CLOTRIMAZOLE/BETAMET DIPROP 15 GM TUBE TP SCH ×2 (09:51→22:50)
[2018-03-25] MEDS: SODIUM CHLORIDE 0.45%/POT 20 MEQ/1,000 ML INFUS.BAG IV SCH (11:08)
[2018-03-25] MEDS: APIXABAN 5 MG TABLET PO SCH ×2 (11:08→22:40)
--- NOTE | 2018-03-25 11:26 | PN ---
Progress Note (short form) - Note Progress Note: Chief Complaint: fall History of Present Illness: awake, confused, no overnight events no cigs - Current Medication List Current Medications Generic Name Dose Route Start Last Admin Trade Name Freq PRN Reason Stop Dose Admin Acetaminophen 650 mg 03/19/18 23:48 03/25/18 06:25 Tylenol - PO 650 mg Q6H PRN Administration PAIN OR FEVER Apixaban 5 mg 03/21/18 12:30 03/25/18 11:08 Eliquis - PO 5 mg BID ABDON Administration Atorvastatin Calcium 20 mg 03/21/18 11:30 03/24/18 21:23 Lipitor - PO 20 mg HS A[facility]ON Administration Carbidopa/Levodopa 1 each 03/19/18 14:00 03/25/18 06:25 Sinemet 25/100 - PO 1 each TID ABDON Administration Clotrimazole 1 applic 03/20/18 22:00 03/25/18 09:51 Lotrisone Cream (Small Tube) TP 1 applic BID ABDON Administration Digoxin 0.125 mg 03/24/18 10:00 03/25/18 09:49 Lanoxin - PO 0.125 mg DAILY ABDON Administration Gabapentin 200 mg 03/20/18 14:15 03/25/18 06:25 Neurontin - PO 200 mg TID ABDON Administration Potassium Chloride/Sodium Chloride 20 meq in 1,000 mls @ 83 mls/hr 03/24/18 21 :30 03/25/18 11:08 1/2ns+20meq Kcl IV 83 mls/hr ASDIR ABDON Administration Insulin Aspart 1 vial 03/24/18 22:00 03/24/18 21:28 Novolog Vial Sliding Scale - SQ 2 units HS ABDON Administration Protocol Insulin Aspart 1 vial 03/24/18 12:13 03/25/18 06:31 Novolog Vial Sliding Scale - SQ 4 units TIDAC [facility] Administration Protocol Insulin Detemir 30 units 03/19/18 22:00 03/24/18 21:29 Levemir Vial SQ 30 units HS [facility]ON Administration Metoprolol Succinate 100 mg 03/23/18 22:00 03/25/18 09:49 Toprol Xl - PO 100 mg BID ABDON Administration Oxybutynin Chloride 5 mg 03/19/18 22:00 03/25/18 09:49 Ditropan - PO 5 mg BID ABDON Administration Polyethylene Glycol 17 gm 03/24/18 10:00 03/25/18 09:50 Miralax (For Daily Use) - PO 17 gm BID ABDON Administration Sitagliptin Phosphate 100 mg 03/21/18 11:30 03/25/18 06:25 Januvia - PO 100 mg 0700 ABDON Administration - Objective Vital Signs: Vital Signs Period Temp Pulse Resp BP Sys/Padgett Pulse Ox Last 24 Hr 98.1 F-99.7 F 127-134 20-20 105-121/68-79 94 Constitutional: Yes: No Distress, Calm Eyes: No: Sclera Icterus HENT: No: Nasal Congestion Cardiovascular: Yes: Pulse tachy, Irregular, JVD (possible (mild)), S1, S2, Other (PMI non diplaced). No: Gallop, Murmur Respiratory: Yes: CTA Bilaterally, poor eff. No: Accessory Muscle Use, Wheezes Gastrointestinal: Yes: Normal Bowel Sounds, Soft. No: Tenderness Extremities: No: Cyanosis Edema: No Integumentary: No: Jaundice diaphoresis Neurological: lethargic Psychiatric: No: Agitated Labs: CBC, BMP 03/25/18 07:05 03/25/18 07:05 ECG: afib, ? regularized Echo 03/22: nl LV/EF. LV mid-cavitary gradient present. RV normal size/fxn. present, cannot quantify severity. no peric effusion. Assessment/Plan s/p fall: -chronic bilat LE weakness--NOT NEW (and did not improve with prolonged holiday off statin in past) -per dr burch's team afib: -? regularized afib on ECG from ER. no bradycardia. pt not on digoxin at home as per my recollection, and not on home med list in ER -has PPM in place to prevent bradycardia -home toprol regimen 75 bid--received dosing qd for first 48 hrs of hospital stay, dose incr'd to bid yesterday. -03/23: rapid HRs yesterday and today to 150s--given extra metoprolol and incr' d to 100 bid. also digoxin x 1 today. -cont toprol 100 bid, start digoxin 0.125 qd (daily dig level ordered x 3). -03/24-03/25: still with some rvr today, dig only just started yesterday so will cont same dig and toprol for now. If HR remains fast will add amio as her bp is too low for further toprol or ccb. -doubt PE: no hypoxia, pt on AC at home (though of note she was on low dose eliquis), no CP or sob. currently on high dose eliquis which is treatment of choice regardless, and no signs cardiogenic shock. Echo here with RV normal. -CHADS VASC 6, hi risk for stroke. on eliquis at home, cont 5 bid -states she hit her head, CT head neg, no neuro deficits--d/w'd sarah bauer will continue AC. -rec PT eval for gait instability/falls risk--once pt evaluated by PT and/or goes to rehab, if felt to be high falls risk will need to reconsider AC CAD: -anginal episode in hosp few years ago when rapid AF, with ischemia on MPI then -has been asymptomatic on med mgmt regimen, with good AF control -cont home meds Ao stenosis: -recent outpt echo with evidence of progression to probably severe -she has been asymptomatic, with no CHF--TAVR not indicated -cont routine outpt observation with me HTN, now low bp: -bp's trending low to 90s ? due to incr'd BB dose -hold amlodipine to allow room for BB hr control DM: -per primary team
[2018-03-25] MEDS ORDERED: INSULIN (NOVOLOG) ASPART 100 UNITS/ML 10ML VIAL ONE ×2 (11:35→16:35)
--- NOTE | 2018-03-25 14:46 | EKG ---
Test Reason : Blood Pressure : / mmHG Vent. Rate : 130 BPM Atrial Rate : 089 BPM P-R Int : 000 ms QRS Dur : 072 ms QT Int : 312 ms P-R-T Axes : 000 -23 014 degrees QTc Int : 459 ms ATRIAL FIBRILLATION WITH RAPID VENTRICULAR RESPONSE INFERIOR INFARCT (CITED ON OR BEFORE 23-MAR-2018) ABNORMAL ECG WHEN COMPARED WITH ECG OF 24-MAR-2018 22:12, NO SIGNIFICANT CHANGE WAS FOUND Confirmed by OLGA CHANDLER, SOUTH ([id number]) on 03/25/2018 2:46:04 PM Referred By: MYLES KESSLER Confirmed By:SOUTH ESPINOZA MD
--- NOTE | 2018-03-25 14:50 | EKG ---
Test Reason : Blood Pressure : / mmHG Vent. Rate : 132 BPM Atrial Rate : 144 BPM P-R Int : 000 ms QRS Dur : 072 ms QT Int : 336 ms P-R-T Axes : 000 -19 093 degrees QTc Int : 497 ms ATRIAL FIBRILLATION WITH RAPID VENTRICULAR RESPONSE INFERIOR INFARCT (CITED ON OR BEFORE 23-MAR-2018) ABNORMAL ECG WHEN COMPARED WITH ECG OF 23-MAR-2018 06:59, NO SIGNIFICANT CHANGE WAS FOUND Confirmed by OLGA CHANDLER, SOUTH ([id number]) on 03/25/2018 2:49:46 PM Referred By: Confirmed By:SOUTH ESPINOZA MD
[2018-03-25] MEDS: ATORVASTATIN CA 20 MG TABLET (FP) PO SCH (22:41)
[2018-03-25] MEDS: INSULIN (LEVEMIR) 100 UNITS/ML UNITS SQ SCH (22:46)
[2018-03-26] MEDS: GABAPENTIN 100 MG CAPSULE (FP) PO SCH ×3 (06:06→21:56)
[2018-03-26] MEDS: CARBIDOPA/LEVODOPA 25/100 TABLET (FP) PO SCH ×3 (06:06→21:55)
[2018-03-26] MEDS: sitaGLIPtin PHOSPHATE 100 MG TABLET (FP) PO SCH (06:06)
[2018-03-26] MEDS: SODIUM CHLORIDE 0.45%/POT 20 MEQ/1,000 ML INFUS.BAG IV SCH ×2 (06:08→21:30)
[2018-03-26] MEDS: INSULIN SLIDING SCALE (NOVOLOG) 1 VIAL SQ SCH ×4 (06:09→21:53)
--- NOTE | 2018-03-26 09:08 | PN ---
Progress Note (short form) - Note Progress Note: Neurology History of Present Illness 87F w/ pmhx of DM, HTN, HLD, DVT, A. fib s/p pacemaker placement, CAD presented to the ED s/p fall. Reportedly on day of admission, was getting up from her bed to go to the bathroom when she had fallen because of b/l leg weakness. She admited to hitting the back of her head, her R side of the body as well as her L wrist per notes. She denied losing consciousness. After she had fallen, she called her sister for help because she was not able to get up herself. She denied headaches, dizziness, vision changes, chest pain, sob, abd pain, urinary/ bowel symptoms, blood in urine/stool. Reportedly, per pt's sister, has a hx of multiple falls in the past. She was seen at [facility] a couple of months ago due to a fall. Additionally, the sister states she falls 1-2x/month, but is usually able to get up herself. She has been living alone in her house over the past month as her has been at rehab. While admitted, she completed noncontrast head CT which did not show any acute changes. Additionally, she completed carotid Dopplers which were also negative as well as CT of the cervical spine which did not show any fractures or subluxations. She does have underlying Parkinson's disease for which she is on Sinemet. EMG/NCS completed and shows B/L S1 radic and R L5 radic, r/o spinal stenosis at L3/L4 and L4/L5. Retrieved and reviewed and MRI L spine from 2014 which did show disc disease, compromised spinal canal with neural formina narrowing. CT L spine completed and with chronic degenerative changes noted, multilevel bulging but no acute issues and no mention of cord compression. Does c/o back pain, getting gabapentin 200 tid and tylenol as below. Remains on sinemet as below. No new neurologic events. Limited movements, would benefit from PT and short term rehab. Allergies/Adverse Reactions: Allergies Allergy/AdvReac Type Severity Reaction Status Date / Time No Known Drug Allergies Allergy Verified 03/19/18 08:39 Active Medications Acetaminophen (Tylenol -) 650 mg PO Q6H PRN PRN Reason: PAIN OR FEVER Last Admin: 03/25/18 20:24 Dose: 650 mg Apixaban (Eliquis -) 5 mg PO BID [facility] Last Admin: 03/25/18 22:40 Dose: 5 mg Atorvastatin Calcium (Lipitor -) 20 mg PO HS [facility] Last Admin: 03/25/18 22:41 Dose: 20 mg Carbidopa/Levodopa (Sinemet 25/100 -) 1 each PO TID [facility] Last Admin: 03/26/18 06:06 Dose: 1 each Clotrimazole (Lotrisone Cream (Small Tube)) 1 applic TP BID [facility] Last Admin: 03/25/18 22:50 Dose: 1 applic Digoxin (Lanoxin -) 0.125 mg PO DAILY [facility] Last Admin: 03/25/18 09:49 Dose: 0.125 mg Gabapentin (Neurontin -) 200 mg PO TID [facility] Last Admin: 03/26/18 06:06 Dose: 200 mg Potassium Chloride/Sodium Chloride (1/2ns+20meq Kcl) 20 meq in 1,000 mls @ 83 mls/hr IV ASDIR [facility] Last Admin: 03/26/18 06:08 Dose: 83 mls/hr Insulin Aspart (Novolog Vial Sliding Scale -) 1 vial SQ [facility]; Protocol Last Admin: 03/25/18 22:45 Dose: Not Given Insulin Aspart (Novolog Vial Sliding Scale -) 1 vial SQ TIDAC [facility]; Protocol Last Admin: 03/26/18 06:09 Dose: Not Given Insulin Detemir (Levemir Vial) 30 units SQ [facility] Last Admin: 03/25/18 22:46 Dose: 30 units Metoprolol Succinate (Toprol Xl -) 100 mg PO BID [facility] Last Admin: 03/25/18 22:40 Dose: 100 mg Oxybutynin Chloride (Ditropan -) 5 mg PO BID [facility] Last Admin: 03/25/18 22:40 Dose: 5 mg Polyethylene Glycol (Miralax (For Daily Use) -) 17 gm PO BID [facility] Last Admin: 03/25/18 22:41 Dose: 17 gm Sitagliptin Phosphate (Januvia -) 100 mg PO 0700 [facility] Last Admin: 03/26/18 06:06 Dose: 100 mg *Physical Exam Vital Signs Period Temp Pulse Resp BP Sys/Padgett Pulse Ox Last 24 Hr 97.6 F-98.6 F 62-134 18-20 90-129/60-82 94 Gen: AAOx3 (person, place time), NAD HEENT: Atraumatic, EOMI, ROLO. Dry mucus membranes, dried blood noted in oral mucosa. Posterior neck point tenderness. Lungs: CTA B/L. Symmetric chest rise. Heart: RRR, normal S1, S2. No murmurs noted. Abd: Soft, NT/ND. +BS in all 4 Qs. No bruits/masses noted. MSK: 3x1cm laceration noted on dorsum of L wrist, bloody. 1+ dorsalis pedis pulses b/l. 2+ radial pulses b/l. Extremities: 5/5 strength b/l UE. 5/5 strength LLE. 3/5 strength RLE. Neuro: Facial symmetry noted. Facial muscles intact. Moves extremtities grossly , B/l sensation in face and u/l b/l extremities intact. Gait deferred CBCD WBC 6.7 K/mm3 (4.0-10.0) 03/25/18 07:05 RBC 4.03 M/mm3 (3.60-5.2) 03/25/18 07:05 Hgb 11.1 GM/dL (10.7-15.3) 03/25/18 07:05 Hct 35.4 % (32.4-45.2) 03/25/18 07:05 MCV 87.8 fl (80-96) 03/25/18 07:05 MCHC 31.4 g/dl (32.0-36.0) L 03/25/18 07:05 RDW 14.0 % (11.6-15.6) 03/25/18 07:05 Plt Count 160 K/MM3 (134-434) 03/25/18 07:05 MPV 10.2 fl (7.5-11.1) 03/25/18 07:05 CMP Sodium 141 mmol/L (136-145) 03/25/18 07:05 Potassium 4.4 mmol/L (3.5-5.1) 03/25/18 07:05 Chloride 111 mmol/L (98-107) H 03/25/18 07:05 Carbon Dioxide 20 mmol/L (21-32) L 03/25/18 07:05 Anion Gap 9 MMOL/L (8-16) 03/25/18 07:05 BUN 47 mg/dL (7-18) H 03/25/18 07:05 Creatinine 1.1 mg/dL (0.55-1.3) 03/25/18 07:05 Creat Clearance w eGFR 46.88 (>60) 03/25/18 07:05 Random Glucose 163 mg/dL (74-106) H 03/25/18 07:05 Calcium 7.8 mg/dL (8.5-10.1) L 03/25/18 07:05 Total Bilirubin 0.3 mg/dL (0.2-1) 03/25/18 07:05 AST 129 U/L (15-37) H 03/25/18 07:05 ALT 30 U/L (13-61) 03/25/18 07:05 Alkaline Phosphatase 67 U/L (45-117) 03/25/18 07:05 Total Protein 5.6 g/dl (6.4-8.2) L 03/25/18 07:05 Albumin 2.0 g/dl (3.4-5.0) L 03/25/18 07:05 CARDIAC ENZYMES Creatine Kinase 69 IU/L (26-192) 03/25/18 07:05 Troponin I 0.06 ng/ml (0.00-0.05) H 03/25/18 07:05 Medical Decision Making 87F w/ pmhx of DM, HTN, HLD, DVT, A. fib s/p pacemaker placement, CAD presented to the ED s/p fall. Reportedly on day of admission, was getting up from her bed to go to the bathroom when she had fallen because of b/l leg weakness. She admited to hitting the back of her head, her R side of the body as well as her L wrist per notes. She denied losing consciousness. Reportedly, per pt's sister , has a hx of multiple falls in the past. She was seen at [facility] a couple of months ago due to a fall. Additionally, the sister states she falls 1- 2x/month, but is usually able to get up herself. She has been living alone in her house over the past month as her has been at rehab. While admitted, she completed noncontrast head CT which did not show any acute changes. Additionally, she completed carotid Dopplers which were also negative as well as CT of the cervical spine which did not show any fractures or subluxations. She does have underlying Parkinson's disease for which she is on Sinemet. EMG/NCS completed and shows B/L S1 radic and R L5 radic, r/o spinal stenosis at L3/L4 and L4/L5. Retrieved and reviewed and MRI L spine from 2015 which did show disc disease, compromised spinal canal with neural formina narrowing. CT L spine reviewed, multilevel changes noted, chronic appearing. Continue physical therapy and possibly short-term rehabilitation. Multifactorial gait disorder with underlying Parkinson's disease along with age- related spinal stenosis. Would pursue conservative mgmt. Fall precautions recommended, DVT prophylaxis. Follow-up cardiology regarding atrial fibrillation as well as monitor blood pressure, maintain normotensive range. Medical optimization DVT ppx PT as tolerated Likely for rehab placement when medically stable
--- NOTE | 2018-03-26 09:58 | PN ---
Progress Note, Physician History of Present Illness: c/o weakness generalized aches - Current Medication List Current Medications: Active Medications Acetaminophen (Tylenol -) 650 mg PO Q6H PRN PRN Reason: PAIN OR FEVER Last Admin: 03/25/18 20:24 Dose: 650 mg Apixaban (Eliquis -) 5 mg PO BID [facility] Last Admin: 03/25/18 22:40 Dose: 5 mg Atorvastatin Calcium (Lipitor -) 20 mg PO [facility] Last Admin: 03/25/18 22:41 Dose: 20 mg Carbidopa/Levodopa (Sinemet 25/100 -) 1 each PO TID [facility] Last Admin: 03/26/18 06:06 Dose: 1 each Clotrimazole (Lotrisone Cream (Small Tube)) 1 applic TP BID [facility] Last Admin: 03/25/18 22:50 Dose: 1 applic Digoxin (Lanoxin -) 0.125 mg PO DAILY [facility] Last Admin: 03/25/18 09:49 Dose: 0.125 mg Gabapentin (Neurontin -) 200 mg PO TID [facility] Last Admin: 03/26/18 06:06 Dose: 200 mg Potassium Chloride/Sodium Chloride (1/2ns+20meq Kcl) 20 meq in 1,000 mls @ 83 mls/hr IV ASDIR [facility] Last Admin: 03/26/18 06:08 Dose: 83 mls/hr Insulin Aspart (Novolog Vial Sliding Scale -) 1 vial SQ [facility]; Protocol Last Admin: 03/25/18 22:45 Dose: Not Given Insulin Aspart (Novolog Vial Sliding Scale -) 1 vial SQ TIDAC [facility]; Protocol Last Admin: 03/26/18 06:09 Dose: Not Given Insulin Detemir (Levemir Vial) 30 units SQ [facility] Last Admin: 03/25/18 22:46 Dose: 30 units Metoprolol Succinate (Toprol Xl -) 100 mg PO BID [facility] Last Admin: 03/25/18 22:40 Dose: 100 mg Oxybutynin Chloride (Ditropan -) 5 mg PO BID [facility] Last Admin: 03/25/18 22:40 Dose: 5 mg Polyethylene Glycol (Miralax (For Daily Use) -) 17 gm PO BID [facility] Last Admin: 03/25/18 22:41 Dose: 17 gm Sitagliptin Phosphate (Januvia -) 100 mg PO 0700 [facility] Last Admin: 03/26/18 06:06 Dose: 100 mg - Objective Vital Signs: Vital Signs Temperature 97.6 F 03/26/18 05:52 Pulse Rate 62 03/26/18 05:52 Respiratory Rate 20 03/26/18 05:52 Blood Pressure 125/66 03/26/18 05:52 O2 Sat by Pulse Oximetry (%) 94 L 03/25/18 21:00 Cardiovascular: Yes: S1, S2 Respiratory: Yes: Regular, CTA Bilaterally Gastrointestinal: Yes: Normal Bowel Sounds, Soft Labs: CBC, BMP 03/25/18 07:05 03/25/18 07:05 INR, PTT INR 1.11 (0.83-1.09) H 03/19/18 09:00 Assessment/Plan Problems (1) Frequent falls Assessment/Plan: carotid doppler negative ct head negatie EMG bilateral S1 radiculopathies no polymyopathy or neuropathy will get ct lumbar spine to r/o L3L4 stenosis will need snf placement-strenghtening PT/OT Code(s): R29.6 - REPEATED FALLS (2) Afib Assessment/Plan: eliquis toprol increased and dig added--monitor Code(s): I48.91 - UNSPECIFIED ATRIAL FIBRILLATION (3) Diabetes Assessment/Plan: levemir hga1c noted - sliding scale januvia Code(s): E11.9 - TYPE 2 DIABETES MELLITUS WITHOUT COMPLICATIONS Qualifiers: Diabetes mellitus type: type 2 (4) Lumbar radiculopathy Assessment/Plan: lumbar spine ct scan to look for L3-L4 stenosis on neurontin Code(s): M54.16 - RADICULOPATHY, LUMBAR REGION (5) HTN (hypertension) Assessment/Plan: norvasc Code(s): I10 - ESSENTIAL (PRIMARY) HYPERTENSION (6) Dehydration Assessment/Plan: Ivf Monitor (7) Positive Troponin Assessment/Plan: Trending down--maybe demand from afib
[2018-03-26] MEDS: APIXABAN 5 MG TABLET PO SCH ×2 (10:52→21:54)
[2018-03-26] MEDS: OXYBUTYNIN CHLORIDE 5 MG TABLET PO SCH ×2 (10:53→21:55)
[2018-03-26] MEDS: POLYETHYLENE GLYCOL 3350 119 GM BTL PO SCH ×2 (10:53→21:58)
[2018-03-26] MEDS: CLOTRIMAZOLE/BETAMET DIPROP 15 GM TUBE TP SCH ×2 (10:53→22:00)
[2018-03-26] MEDS: DIGOXIN 0.125 MG TABLET (FP) PO SCH (10:53)
[2018-03-26] MEDS ORDERED: TAMSULOSIN HCL 0.4 MG CAP PO ONE (11:20)
[2018-03-26 12:16] LABS: ALBUMIN 2.1 g/dl (3.4-5.0); ALK PHOS 70 U/L (45-117); ANION GAP 5 MMOL/L (8-16); BILIRUBIN,TOTAL 0.3 mg/dL (0.2-1); BLOOD UREA NITROGEN 34 mg/dL (7-18); CHLORIDE 118 mmol/L (98-107); CO2 22 mmol/L (21-32); CREATININE 0.8 mg/dL (0.55-1.3); GLUCOSE,RANDOM 128 mg/dL (74-106); POTASSIUM 4.5 mmol/L (3.5-5.1); SGOT/AST 88 U/L (15-37); SGPT/ALT 37 U/L (13-61); SODIUM 146 mmol/L (136-145); TOT PROT 5.5 g/dl (6.4-8.2)
--- NOTE | 2018-03-26 15:20 | PN ---
Progress Note (short form) - Note Progress Note: Progress Note: Chief Complaint: fall History of Present Illness: no chest pain, palps, dizzy, lightheadedness Current Medications Acetaminophen (Tylenol -) 650 mg PO Q6H PRN PRN Reason: PAIN OR FEVER Last Admin: 03/25/18 20:24 Dose: 650 mg Apixaban (Eliquis -) 5 mg PO BID [facility] Last Admin: 03/26/18 10:52 Dose: 5 mg Atorvastatin Calcium (Lipitor -) 20 mg PO HS [facility] Last Admin: 03/25/18 22:41 Dose: 20 mg Carbidopa/Levodopa (Sinemet 25/100 -) 1 each PO TID [facility] Last Admin: 03/26/18 13:41 Dose: 1 each Clotrimazole (Lotrisone Cream (Small Tube)) 1 applic TP BID [facility] Last Admin: 03/26/18 10:53 Dose: 1 applic Digoxin (Lanoxin -) 0.125 mg PO DAILY [facility] Last Admin: 03/26/18 10:53 Dose: 0.125 mg Gabapentin (Neurontin -) 200 mg PO TID [facility] Last Admin: 03/26/18 13:41 Dose: 200 mg Potassium Chloride/Sodium Chloride (1/2ns+20meq Kcl) 20 meq in 1,000 mls @ 83 mls/hr IV ASDIR [facility] Last Admin: 03/26/18 06:08 Dose: 83 mls/hr Insulin Aspart (Novolog Vial Sliding Scale -) 1 vial SQ [facility]; Protocol Last Admin: 03/25/18 22:45 Dose: Not Given Insulin Aspart (Novolog Vial Sliding Scale -) 1 vial SQ TIDAC [facility]; Protocol Last Admin: 03/26/18 11:37 Dose: 8 units Insulin Detemir (Levemir Vial) 30 units SQ [facility] Last Admin: 03/25/18 22:46 Dose: 30 units Metoprolol Succinate (Toprol Xl -) 100 mg PO BID [facility] Last Admin: 03/26/18 10:52 Dose: 100 mg Oxybutynin Chloride (Ditropan -) 5 mg PO BID [facility] Last Admin: 03/26/18 10:53 Dose: 5 mg Polyethylene Glycol (Miralax (For Daily Use) -) 17 gm PO BID [facility] Last Admin: 03/26/18 10:53 Dose: 17 gm Sitagliptin Phosphate (Januvia -) 100 mg PO 0700 [facility] Last Admin: 03/26/18 06:06 Dose: 100 mg Tamsulosin HCl (Flomax -) 0.4 mg PO DAILY@0830 [facility] - Objective Vital Signs: Vital Signs Period Temp Pulse Resp BP Sys/Padgett Pulse Ox Last 24 Hr 97.6 F-98.3 F 62-76 19-20 125-129/66-82 94 Constitutional: Yes: No Distress, Calm Eyes: No: Sclera Icterus HENT: No: Nasal Congestion Cardiovascular: Yes: Pulse tachy, Irregular, JVD (possible (mild)), S1, S2, Other (PMI non diplaced). No: Gallop, Murmur Respiratory: Yes: CTA Bilaterally, poor eff. No: Accessory Muscle Use, Wheezes Gastrointestinal: Yes: Normal Bowel Sounds, Soft. No: Tenderness Extremities: No: Cyanosis Edema: No Integumentary: No: Jaundice diaphoresis Neurological: lethargic Psychiatric: No: Agitated Labs: CBC, BMP 03/25/18 07:05 03/25/18 07:05 ECG: afib, ? regularized Echo 03/22: nl LV/EF. LV mid-cavitary gradient present. RV normal size/fxn. present, cannot quantify severity. no peric effusion. Assessment/Plan s/p fall: -chronic bilat LE weakness--NOT NEW (and did not improve with prolonged holiday off statin in past) -per dr burch's team afib: -? regularized afib on ECG from ER. no bradycardia. pt not on digoxin at home as per my recollection, and not on home med list in ER -has PPM in place to prevent bradycardia -doubt PE: no hypoxia, pt on AC at home (though of note she was on low dose eliquis), no CP or sob. currently on high dose eliquis which is treatment of choice regardless, and no signs cardiogenic shock. Echo here with RV normal. -CHADS VASC 6, hi risk for stroke. on eliquis at home, cont 5 bid -states she hit her head, CT head neg, no neuro deficits--d/w'd sarah bauer will continue AC. -rec PT eval for gait instability/falls risk--once pt evaluated by PT and/or goes to rehab, if felt to be high falls risk will need to reconsider AC -home toprol regimen 75 bid--received dosing qd for first 48 hrs of hospital stay, dose incr'd to bid -03/23: rapid HRs 03/22 and today to 150s--given extra metoprolol and incr'd to 100 bid. also digoxin started 0.125 mg daily -03/24-03/25: still with some rvr l cont same dig and toprol for now. If HR remains fast will add amio as her bp is too low for further toprol or ccb. - 03/26 HR improved, continue digoxin and metoprolol CAD: -anginal episode in hosp few years ago when rapid AF, with ischemia on MPI then -has been asymptomatic on med mgmt regimen, with good AF control -cont home meds Ao stenosis: -recent outpt echo with evidence of progression to probably severe -she has been asymptomatic, with no CHF--TAVR not indicated -cont routine outpt observation HTN, now low bp: -bp's trending low to 90s ? due to incr'd BB dose -hold amlodipine to allow room for BB hr control DM: -per primary team
[2018-03-26] MEDS: ATORVASTATIN CA 20 MG TABLET (FP) PO SCH (21:55)
[2018-03-26] MEDS: INSULIN (LEVEMIR) 100 UNITS/ML UNITS SQ SCH (21:56)
[2018-03-27] MEDS: sitaGLIPtin PHOSPHATE 100 MG TABLET (FP) PO SCH (06:50)
[2018-03-27] MEDS: INSULIN SLIDING SCALE (NOVOLOG) 1 VIAL SQ SCH ×4 (06:50→21:42)
[2018-03-27] MEDS: CARBIDOPA/LEVODOPA 25/100 TABLET (FP) PO SCH ×3 (06:50→21:37)
[2018-03-27] MEDS: SODIUM CHLORIDE 0.45%/POT 20 MEQ/1,000 ML INFUS.BAG IV SCH (06:51)
[2018-03-27] MEDS: GABAPENTIN 100 MG CAPSULE (FP) PO SCH ×2 (06:51→14:46)
[2018-03-27] MEDS: TAMSULOSIN HCL 0.4 MG CAP PO SCH (08:21)
[2018-03-27 09:09] LABS: ALBUMIN 1.9 g/dl (3.4-5.0); ALK PHOS 72 U/L (45-117); ANION GAP 8 MMOL/L (8-16); BILIRUBIN,TOTAL 0.4 mg/dL (0.2-1); BLOOD UREA NITROGEN 21 mg/dL (7-18); CALCIUM 7.8 mg/dL (8.5-10.1); CHLORIDE 112 mmol/L (98-107); CO2 21 mmol/L (21-32); CREATININE 0.7 mg/dL (0.55-1.3); GLUCOSE,RANDOM 90 mg/dL (74-106); POTASSIUM 4.7 mmol/L (3.5-5.1); SGOT/AST 55 U/L (15-37); SGPT/ALT 22 U/L (13-61); SODIUM 141 mmol/L (136-145); TOT PROT 5.4 g/dl (6.4-8.2)
[2018-03-27] MEDS: POLYETHYLENE GLYCOL 3350 119 GM BTL PO SCH ×2 (09:35→21:44)
[2018-03-27] MEDS: DIGOXIN 0.125 MG TABLET (FP) PO SCH (09:36)
[2018-03-27] MEDS: APIXABAN 5 MG TABLET PO SCH ×2 (09:36→21:37)
[2018-03-27] MEDS: OXYBUTYNIN CHLORIDE 5 MG TABLET PO SCH ×2 (09:36→21:41)
[2018-03-27] MEDS: CLOTRIMAZOLE/BETAMET DIPROP 15 GM TUBE TP SCH ×2 (09:37→21:39)
--- NOTE | 2018-03-27 11:08 | PN ---
Progress Note, Physician - Current Medication List Current Medications: Active Medications Acetaminophen (Tylenol -) 650 mg PO Q6H PRN PRN Reason: PAIN OR FEVER Last Admin: 03/25/18 20:24 Dose: 650 mg Apixaban (Eliquis -) 5 mg PO BID [facility] Last Admin: 03/27/18 09:36 Dose: 5 mg Atorvastatin Calcium (Lipitor -) 20 mg PO HS [facility] Last Admin: 03/26/18 21:55 Dose: 20 mg Carbidopa/Levodopa (Sinemet 25/100 -) 1 each PO TID [facility] Last Admin: 03/27/18 06:50 Dose: 1 each Clotrimazole (Lotrisone Cream (Small Tube)) 1 applic TP BID [facility] Last Admin: 03/27/18 09:37 Dose: 1 applic Digoxin (Lanoxin -) 0.125 mg PO DAILY [facility] Last Admin: 03/27/18 09:36 Dose: 0.125 mg Gabapentin (Neurontin -) 200 mg PO TID [facility] Last Admin: 03/27/18 06:51 Dose: 200 mg Potassium Chloride/Sodium Chloride (1/2ns+20meq Kcl) 20 meq in 1,000 mls @ 83 mls/hr IV ASDIR [facility] Last Admin: 03/27/18 06:51 Dose: 83 mls/hr Insulin Aspart (Novolog Vial Sliding Scale -) 1 vial SQ [facility]; Protocol Last Admin: 03/26/18 21:53 Dose: 2 units Insulin Aspart (Novolog Vial Sliding Scale -) 1 vial SQ TIDAC [facility]; Protocol Last Admin: 03/27/18 06:50 Dose: Not Given Insulin Detemir (Levemir Vial) 30 units SQ [facility] Last Admin: 03/26/18 21:56 Dose: 30 units Metoprolol Succinate (Toprol Xl -) 100 mg PO BID [facility] Last Admin: 03/27/18 09:36 Dose: 100 mg Oxybutynin Chloride (Ditropan -) 5 mg PO BID [facility] Last Admin: 03/27/18 09:36 Dose: 5 mg Polyethylene Glycol (Miralax (For Daily Use) -) 17 gm PO BID [facility] Last Admin: 03/27/18 09:35 Dose: 17 gm Sitagliptin Phosphate (Januvia -) 100 mg PO 0700 [facility] Last Admin: 03/27/18 06:50 Dose: 100 mg Tamsulosin HCl (Flomax -) 0.4 mg PO DAILY@0830 [facility] Last Admin: 03/27/18 08:21 Dose: 0.4 mg - Objective Vital Signs: Vital Signs Temperature 98.2 F 03/27/18 09:42 Pulse Rate 66 03/27/18 09:42 Respiratory Rate 22 H 03/27/18 09:42 Blood Pressure 135/78 03/27/18 09:42 O2 Sat by Pulse Oximetry (%) 95 03/27/18 09:00 Cardiovascular: Yes: S1, S2 Respiratory: Yes: Regular, CTA Bilaterally Gastrointestinal: Yes: Normal Bowel Sounds, Soft Labs: CBC, BMP 03/25/18 07:05 03/27/18 08:00 INR, PTT INR 1.11 (0.83-1.09) H 03/19/18 09:00 Assessment/Plan Problems (1) Frequent falls Assessment/Plan: carotid doppler negative ct head negatie EMG bilateral S1 radiculopathies no polymyopathy or neuropathy will get ct lumbar spine to r/o L3L4 stenosis will need snf placement-strenghtening PT/OT Code(s): R29.6 - REPEATED FALLS (2) Afib Assessment/Plan: eliquis toprol increased and dig added--monitor Code(s): I48.91 - UNSPECIFIED ATRIAL FIBRILLATION (3) Diabetes Assessment/Plan: levemir hga1c noted - sliding scale januvia Code(s): E11.9 - TYPE 2 DIABETES MELLITUS WITHOUT COMPLICATIONS Qualifiers: Diabetes mellitus type: type 2 (4) Lumbar radiculopathy Assessment/Plan: lumbar spine ct scan to look for L3-L4 stenosis on neurontin Code(s): M54.16 - RADICULOPATHY, LUMBAR REGION (5) HTN (hypertension) Assessment/Plan: norvasc Code(s): I10 - ESSENTIAL (PRIMARY) HYPERTENSION (6) Dehydration Assessment/Plan: DC Ivf Monitor (7) Positive Troponin Assessment/Plan: Trending down--maybe demand from afib
--- NOTE | 2018-03-27 13:17 | PN ---
Progress Note (short form) - Note Progress Note: Progress Note: Chief Complaint: fall History of Present Illness: no chest pain, palps, dizzy, lightheadedness Current Medications Acetaminophen (Tylenol -) 650 mg PO Q6H PRN PRN Reason: PAIN OR FEVER Last Admin: 03/25/18 20:24 Dose: 650 mg Apixaban (Eliquis -) 5 mg PO BID [facility] Last Admin: 03/27/18 09:36 Dose: 5 mg Atorvastatin Calcium (Lipitor -) 20 mg PO [facility] Last Admin: 03/26/18 21:55 Dose: 20 mg Carbidopa/Levodopa (Sinemet 25/100 -) 1 each PO TID [facility] Last Admin: 03/27/18 06:50 Dose: 1 each Clotrimazole (Lotrisone Cream (Small Tube)) 1 applic TP BID [facility] Last Admin: 03/27/18 09:37 Dose: 1 applic Digoxin (Lanoxin -) 0.125 mg PO DAILY [facility] Last Admin: 03/27/18 09:36 Dose: 0.125 mg Gabapentin (Neurontin -) 200 mg PO TID [facility] Last Admin: 03/27/18 06:51 Dose: 200 mg Insulin Aspart (Novolog Vial Sliding Scale -) 1 vial SQ [facility]; Protocol Last Admin: 03/26/18 21:53 Dose: 2 units Insulin Aspart (Novolog Vial Sliding Scale -) 1 vial SQ TIDAC [facility]; Protocol Last Admin: 03/27/18 11:33 Dose: Not Given Insulin Detemir (Levemir Vial) 30 units SQ [facility] Last Admin: 03/26/18 21:56 Dose: 30 units Metoprolol Succinate (Toprol Xl -) 100 mg PO BID [facility] Last Admin: 03/27/18 09:36 Dose: 100 mg Oxybutynin Chloride (Ditropan -) 5 mg PO BID [facility] Last Admin: 03/27/18 09:36 Dose: 5 mg Polyethylene Glycol (Miralax (For Daily Use) -) 17 gm PO BID [facility] Last Admin: 03/27/18 09:35 Dose: 17 gm Sitagliptin Phosphate (Januvia -) 100 mg PO 0700 [facility] Last Admin: 03/27/18 06:50 Dose: 100 mg Tamsulosin HCl (Flomax -) 0.4 mg PO DAILY@0830 [facility] Last Admin: 03/27/18 08:21 Dose: 0.4 mg - Objective Vital Signs: Vital Signs Period Temp Pulse Resp BP Sys/Padgett Pulse Ox Last 24 Hr 98.2 F-99.1 F 65-68 18-22 132-139/66-82 94-95 Constitutional: Yes: No Distress, Calm Eyes: No: Sclera Icterus HENT: No: Nasal Congestion Cardiovascular: Yes: Pulse tachy, Irregular, JVD (possible (mild)), S1, S2, Other (PMI non diplaced). No: Gallop, Murmur Respiratory: Yes: CTA Bilaterally, poor eff. No: Accessory Muscle Use, Wheezes Gastrointestinal: Yes: Normal Bowel Sounds, Soft. No: Tenderness Extremities: No: Cyanosis Edema: No Integumentary: No: Jaundice diaphoresis Neurological: lethargic Psychiatric: No: Agitated Labs: CBC, BMP 03/25/18 07:05 03/25/18 07:05 ECG: afib, ? regularized Echo 03/22: nl LV/EF. LV mid-cavitary gradient present. RV normal size/fxn. present, cannot quantify severity. no peric effusion. Assessment/Plan s/p fall: -chronic bilat LE weakness--NOT NEW (and did not improve with prolonged holiday off statin in past) -per dr burch's team afib: -? regularized afib on ECG from ER. no bradycardia. pt not on digoxin at home as per my recollection, and not on home med list in ER -has PPM in place to prevent bradycardia -doubt PE: no hypoxia, pt on AC at home (though of note she was on low dose eliquis), no CP or sob. currently on high dose eliquis which is treatment of choice regardless, and no signs cardiogenic shock. Echo here with RV normal. -CHADS VASC 6, hi risk for stroke. on eliquis at home, cont 5 bid -states she hit her head, CT head neg, no neuro deficits--d/w'd sarah juancarlos will continue AC. -rec PT eval for gait instability/falls risk--once pt evaluated by PT and/or goes to rehab, if felt to be high falls risk will need to reconsider AC -home toprol regimen 75 bid--received dosing qd for first 48 hrs of hospital stay, dose incr'd to bid -03/23: rapid HRs 03/22 and today to 150s--given extra metoprolol and incr'd to 100 bid. also digoxin started 0.125 mg daily -03/24-03/25: still with some rvr l cont same dig and toprol for now. If HR remains fast will add amio as her bp is too low for further toprol or ccb. - 03/26-3: HR improved, continue digoxin and metoprolol CAD: -anginal episode in hosp few years ago when rapid AF, with ischemia on MPI then -has been asymptomatic on med mgmt regimen, with good AF control -cont home meds Ao stenosis: -recent outpt echo with evidence of progression to probably severe -she has been asymptomatic, with no CHF--TAVR not indicated -cont routine outpt observation HTN, now low bp: -bp's trending low to 90s ? due to incr'd BB dose -hold amlodipine to allow room for BB hr control DM: -per primary team
[2018-03-27] MEDS ORDERED: SODIUM PHOSPHATE/NA BIPHOS 133 ML ENEMA PR ONE (21:30)
[2018-03-27] MEDS: ACETAMINOPHEN 325 MG TABLET (FP) PO PRN (21:36)
[2018-03-27] MEDS: ATORVASTATIN CA 20 MG TABLET (FP) PO SCH (21:37)
[2018-03-27] MEDS: INSULIN (LEVEMIR) 100 UNITS/ML UNITS SQ SCH (21:38)
[2018-03-28] MEDS: ACETAMINOPHEN 325 MG TABLET (FP) PO PRN ×2 (06:15→22:43)
[2018-03-28] MEDS: sitaGLIPtin PHOSPHATE 100 MG TABLET (FP) PO SCH (06:16)
[2018-03-28] MEDS: INSULIN SLIDING SCALE (NOVOLOG) 1 VIAL SQ SCH ×4 (06:16→22:55)
[2018-03-28] MEDS: CARBIDOPA/LEVODOPA 25/100 TABLET (FP) PO SCH ×3 (06:16→22:42)
[2018-03-28] MEDS ORDERED: INSULIN (NOVOLOG) ASPART 100 UNITS/ML 10ML VIAL ONE (06:52)
[2018-03-28] MEDS: APIXABAN 5 MG TABLET PO SCH ×2 (09:10→22:42)
[2018-03-28] MEDS: TAMSULOSIN HCL 0.4 MG CAP PO SCH (09:10)
[2018-03-28] MEDS: DIGOXIN 0.125 MG TABLET (FP) PO SCH (09:10)
[2018-03-28] MEDS: OXYBUTYNIN CHLORIDE 5 MG TABLET PO SCH ×2 (09:10→22:42)
[2018-03-28] MEDS: POLYETHYLENE GLYCOL 3350 119 GM BTL PO SCH ×2 (10:14→22:47)
[2018-03-28] MEDS: CLOTRIMAZOLE/BETAMET DIPROP 15 GM TUBE TP SCH ×2 (10:14→22:48)
--- NOTE | 2018-03-28 13:18 | PN ---
Progress Note, Physician - Current Medication List Current Medications: Active Medications Acetaminophen (Tylenol -) 650 mg PO Q4H PRN PRN Reason: PAIN Last Admin: 03/28/18 06:15 Dose: 650 mg Apixaban (Eliquis -) 5 mg PO BID [facility] Last Admin: 03/28/18 09:10 Dose: 5 mg Atorvastatin Calcium (Lipitor -) 20 mg PO HS [facility] Last Admin: 03/27/18 21:37 Dose: 20 mg Carbidopa/Levodopa (Sinemet 25/100 -) 1 each PO TID [facility] Last Admin: 03/28/18 06:16 Dose: 1 each Clotrimazole (Lotrisone Cream (Small Tube)) 1 applic TP BID [facility] Last Admin: 03/28/18 10:14 Dose: 1 applic Digoxin (Lanoxin -) 0.125 mg PO DAILY [facility] Last Admin: 03/28/18 09:10 Dose: 0.125 mg Insulin Aspart (Novolog Vial Sliding Scale -) 1 vial SQ [facility]; Protocol Last Admin: 03/27/18 21:42 Dose: Not Given Insulin Aspart (Novolog Vial Sliding Scale -) 1 vial SQ TIDAC [facility]; Protocol Last Admin: 03/28/18 12:34 Dose: Not Given Insulin Detemir (Levemir Vial) 30 units SQ [facility] Last Admin: 03/27/18 21:38 Dose: 30 units Metoprolol Succinate (Toprol Xl -) 100 mg PO BID [facility] Last Admin: 03/28/18 09:10 Dose: 100 mg Oxybutynin Chloride (Ditropan -) 5 mg PO BID [facility] Last Admin: 03/28/18 09:10 Dose: 5 mg Polyethylene Glycol (Miralax (For Daily Use) -) 17 gm PO BID [facility] Last Admin: 03/28/18 10:14 Dose: 17 gm Sitagliptin Phosphate (Januvia -) 100 mg PO 0700 [facility] Last Admin: 03/28/18 06:16 Dose: 100 mg Tamsulosin HCl (Flomax -) 0.4 mg PO DAILY@0830 [facility] Last Admin: 03/28/18 09:10 Dose: 0.4 mg - Objective Vital Signs: Vital Signs Temperature 98.4 F 03/28/18 05:55 Pulse Rate 63 03/28/18 09:10 Respiratory Rate 20 03/28/18 05:55 Blood Pressure 158/82 03/28/18 05:55 O2 Sat by Pulse Oximetry (%) 95 03/27/18 21:00 Cardiovascular: Yes: S1, S2 Respiratory: Yes: Regular, CTA Bilaterally Gastrointestinal: Yes: Normal Bowel Sounds, Soft Neurological: Yes: Alert, Oriented Labs: CBC, BMP 03/25/18 07:05 03/27/18 08:00 INR, PTT INR 1.11 (0.83-1.09) H 03/19/18 09:00 Assessment/Plan Problems (1) Frequent falls Assessment/Plan: carotid doppler negative ct head negatie EMG bilateral S1 radiculopathies no polymyopathy or neuropathy will get ct lumbar spine to r/o L3L4 stenosis will need snf placement-strenghtening PT/OT Code(s): R29.6 - REPEATED FALLS (2) Afib Assessment/Plan: eliquis toprol increased and dig added--monitor Code(s): I48.91 - UNSPECIFIED ATRIAL FIBRILLATION (3) Diabetes Assessment/Plan: levemir hga1c noted - sliding scale januvia Code(s): E11.9 - TYPE 2 DIABETES MELLITUS WITHOUT COMPLICATIONS Qualifiers: Diabetes mellitus type: type 2 (4) Lumbar radiculopathy Assessment/Plan: lumbar spine ct scan to look for L3-L4 stenosis on neurontin Code(s): M54.16 - RADICULOPATHY, LUMBAR REGION (5) HTN (hypertension) Assessment/Plan: norvas Code(s): I10 - ESSENTIAL (PRIMARY) HYPERTENSION (6) Dehydration Assessment/Plan: DC Ivf Monitor (7) Positive Troponin Assessment/Plan: Trending down--maybe demand from afib (8) Urinary Retention Trial of voiding on flomax (9) Depresion Assessment/Plan: Cymbalta--will also help with pain (10) Laceration Assessment/Plan: DC sutures
[2018-03-28] MEDS ORDERED: DULoxetine HCL 20 MG CAPSULE.DR (FP) ONE (13:47)
[2018-03-28] MEDS: DULoxetine HCL 20 MG CAPSULE.DR (FP) PO SCH (13:49)
[2018-03-28] MEDS: INSULIN (LEVEMIR) 100 UNITS/ML UNITS SQ SCH (22:39)
[2018-03-28] MEDS: ATORVASTATIN CA 20 MG TABLET (FP) PO SCH (22:43)
[2018-03-29] MEDS: CARBIDOPA/LEVODOPA 25/100 TABLET (FP) PO SCH ×2 (06:02→13:42)
[2018-03-29] MEDS: sitaGLIPtin PHOSPHATE 100 MG TABLET (FP) PO SCH (06:02)
[2018-03-29] MEDS: INSULIN SLIDING SCALE (NOVOLOG) 1 VIAL SQ SCH ×2 (06:04→12:23)
[2018-03-29] MEDS: ACETAMINOPHEN 325 MG TABLET (FP) PO PRN (06:07)
[2018-03-29] MEDS: TAMSULOSIN HCL 0.4 MG CAP PO SCH (08:43)
--- NOTE | 2018-03-29 08:48 | PN ---
Progress Note (short form) - Note Progress Note: Neurology History of Present Illness 87F w/ pmhx of DM, HTN, HLD, DVT, A. fib s/p pacemaker placement, CAD presented to the ED s/p fall. Reportedly on day of admission, was getting up from her bed to go to the bathroom when she had fallen because of b/l leg weakness. She admited to hitting the back of her head, her R side of the body as well as her L wrist per notes. She denied losing consciousness. After she had fallen, she called her sister for help because she was not able to get up herself. She denied headaches, dizziness, vision changes, chest pain, sob, abd pain, urinary/ bowel symptoms, blood in urine/stool. Reportedly, per pt's sister, has a hx of multiple falls in the past. She was seen at [facility] a couple of months ago due to a fall. Additionally, the sister states she falls 1-2x/month, but is usually able to get up herself. She has been living alone in her house over the past month as her has been at rehab. While admitted, she completed noncontrast head CT which did not show any acute changes. Additionally, she completed carotid Dopplers which were also negative as well as CT of the cervical spine which did not show any fractures or subluxations. She does have underlying Parkinson's disease for which she is on Sinemet. EMG/NCS completed and shows B/L S1 radic and R L5 radic, r/o spinal stenosis at L3/L4 and L4/L5. Retrieved and reviewed and MRI L spine from 2014 which did show disc disease, compromised spinal canal with neural formina narrowing. CT L spine completed and with chronic degenerative changes noted, multilevel bulging but no acute issues and no mention of cord compression. Remains on sinemet as below for PD. No new neurologic events over the weekend. Plan is for rehab placement. Allergies/Adverse Reactions: Allergies Allergy/AdvReac Type Severity Reaction Status Date / Time No Known Drug Allergies Allergy Verified 03/19/18 08:39 Active Medications Acetaminophen (Tylenol -) 650 mg PO Q4H PRN PRN Reason: PAIN Last Admin: 03/29/18 06:07 Dose: 650 mg Apixaban (Eliquis -) 5 mg PO BID [facility] Last Admin: 03/28/18 22:42 Dose: 5 mg Atorvastatin Calcium (Lipitor -) 20 mg PO [facility] Last Admin: 03/28/18 22:43 Dose: 20 mg Carbidopa/Levodopa (Sinemet 25/100 -) 1 each PO TID [facility] Last Admin: 03/29/18 06:02 Dose: 1 each Clotrimazole (Lotrisone Cream (Small Tube)) 1 applic TP BID [facility] Last Admin: 03/28/18 22:48 Dose: 1 applic Digoxin (Lanoxin -) 0.125 mg PO DAILY [facility] Last Admin: 03/28/18 09:10 Dose: 0.125 mg Duloxetine HCl (Cymbalta -) 20 mg PO DAILY [facility] Last Admin: 03/28/18 13:49 Dose: 20 mg Insulin Aspart (Novolog Vial Sliding Scale -) 1 vial SQ HS [facility]; Protocol Last Admin: 03/28/18 22:55 Dose: 2 units Insulin Aspart (Novolog Vial Sliding Scale -) 1 vial SQ TIDAC [facility]; Protocol Last Admin: 03/29/18 06:04 Dose: Not Given Insulin Detemir (Levemir Vial) 30 units SQ [facility] Last Admin: 03/28/18 22:39 Dose: 30 units Metoprolol Succinate (Toprol Xl -) 100 mg PO BID [facility] Last Admin: 03/28/18 22:42 Dose: 100 mg Oxybutynin Chloride (Ditropan -) 5 mg PO BID [facility] Last Admin: 03/28/18 22:42 Dose: 5 mg Polyethylene Glycol (Miralax (For Daily Use) -) 17 gm PO BID [facility] Last Admin: 03/28/18 22:47 Dose: 17 gm Sitagliptin Phosphate (Januvia -) 100 mg PO 0700 [facility] Last Admin: 03/29/18 06:02 Dose: 100 mg Tamsulosin HCl (Flomax -) 0.4 mg PO DAILY@0830 [facility] Last Admin: 03/29/18 08:43 Dose: 0.4 mg *Physical Exam Vital Signs Period Temp Pulse Resp BP Sys/Padgtet Pulse Ox Last 24 Hr 97.5 F-98.4 F 63-71 20-22 110-155/65-90 93 Gen: AAOx3 (person, place time), NAD HEENT: Atraumatic, EOMI, ROLO. Dry mucus membranes, dried blood noted in oral mucosa. Posterior neck point tenderness. Lungs: CTA B/L. Symmetric chest rise. Heart: RRR, normal S1, S2. No murmurs noted. Abd: Soft, NT/ND. +BS in all 4 Qs. No bruits/masses noted. MSK: 3x1cm laceration noted on dorsum of L wrist, bloody. 1+ dorsalis pedis pulses b/l. 2+ radial pulses b/l. Extremities: 5/5 strength b/l UE. 5/5 strength LLE. 3/5 strength RLE. Neuro: Facial symmetry noted. Facial muscles intact. Moves extremtities grossly , B/l sensation in face and u/l b/l extremities intact. Gait deferred CBCD WBC 6.7 K/mm3 (4.0-10.0) 03/25/18 07:05 RBC 4.03 M/mm3 (3.60-5.2) 03/25/18 07:05 Hgb 11.1 GM/dL (10.7-15.3) 03/25/18 07:05 Hct 35.4 % (32.4-45.2) 03/25/18 07:05 MCV 87.8 fl (80-96) 03/25/18 07:05 MCHC 31.4 g/dl (32.0-36.0) L 03/25/18 07:05 RDW 14.0 % (11.6-15.6) 03/25/18 07:05 Plt Count 160 K/MM3 (134-434) 03/25/18 07:05 MPV 10.2 fl (7.5-11.1) 03/25/18 07:05 CMP Sodium 141 mmol/L (136-145) 03/27/18 08:00 Potassium 4.7 mmol/L (3.5-5.1) 03/27/18 08:00 Chloride 112 mmol/L (98-107) H 03/27/18 08:00 Carbon Dioxide 21 mmol/L (21-32) 03/27/18 08:00 Anion Gap 8 MMOL/L (8-16) 03/27/18 08:00 BUN 21 mg/dL (7-18) H 03/27/18 08:00 Creatinine 0.7 mg/dL (0.55-1.3) 03/27/18 08:00 Creat Clearance w eGFR > 60 (>60) 03/27/18 08:00 Random Glucose 90 mg/dL (74-106) 03/27/18 08:00 Calcium 7.8 mg/dL (8.5-10.1) L 03/27/18 08:00 Total Bilirubin 0.4 mg/dL (0.2-1) 03/27/18 08:00 AST 55 U/L (15-37) H 03/27/18 08:00 ALT 22 U/L (13-61) 03/27/18 08:00 Alkaline Phosphatase 72 U/L (45-117) 03/27/18 08:00 Total Protein 5.4 g/dl (6.4-8.2) L 03/27/18 08:00 Albumin 1.9 g/dl (3.4-5.0) L 03/27/18 08:00 CARDIAC ENZYMES Creatine Kinase 69 IU/L (26-192) 03/25/18 07:05 Troponin I 0.06 ng/ml (0.00-0.05) H 03/25/18 07:05 Medical Decision Making 87F w/ pmhx of DM, HTN, HLD, DVT, A. fib s/p pacemaker placement, CAD presented to the ED s/p fall. Reportedly on day of admission, was getting up from her bed to go to the bathroom when she had fallen because of b/l leg weakness. She admited to hitting the back of her head, her R side of the body as well as her L wrist per notes. She denied losing consciousness. Reportedly, per pt's sister , has a hx of multiple falls in the past. She was seen at [facility] a couple of months ago due to a fall. Additionally, the sister states she falls 1- 2x/month, but is usually able to get up herself. She has been living alone in her house over the past month as her has been at rehab. While admitted, she completed noncontrast head CT which did not show any acute changes. Additionally, she completed carotid Dopplers which were also negative as well as CT of the cervical spine which did not show any fractures or subluxations. She does have underlying Parkinson's disease for which she is on Sinemet. EMG/NCS completed and shows B/L S1 radic and R L5 radic, r/o spinal stenosis at L3/L4 and L4/L5. MRI L spine from 2015 which did show disc disease, compromised spinal canal with neural formina narrowing. CT L spine reviewed, multilevel changes noted, chronic appearing. Continue physical therapy and possibly short-term rehabilitation. Multifactorial gait disorder with underlying Parkinson's disease along with age- related spinal stenosis. Fall precautions recommended, DVT prophylaxis. Follow-up cardiology regarding atrial fibrillation as well as monitor blood pressure, maintain normotensive range. Medical optimization DVT ppx PT as tolerated For rehab placement
[2018-03-29] MEDS: APIXABAN 5 MG TABLET PO SCH (09:29)
[2018-03-29] MEDS: DIGOXIN 0.125 MG TABLET (FP) PO SCH (09:29)
[2018-03-29] MEDS: POLYETHYLENE GLYCOL 3350 119 GM BTL PO SCH (09:30)
[2018-03-29] MEDS: OXYBUTYNIN CHLORIDE 5 MG TABLET PO SCH (09:30)
[2018-03-29] MEDS: CLOTRIMAZOLE/BETAMET DIPROP 15 GM TUBE TP SCH (09:30)
[2018-03-29] MEDS: DULoxetine HCL 20 MG CAPSULE.DR (FP) PO SCH (09:30)
--- NOTE | 2018-03-29 12:23 | DS ---
Physical Examination Vital Signs: Vital Signs Temperature 97.8 F 03/29/18 08:40 Pulse Rate 63 03/29/18 09:29 Respiratory Rate 20 03/29/18 08:40 Blood Pressure 110/70 03/29/18 08:40 O2 Sat by Pulse Oximetry (%) 95 03/29/18 09:00 Constitutional: Yes: Calm Cardiovascular: Yes: Regular Rate and Rhythm, S1, S2 Respiratory: Yes: CTA Bilaterally Gastrointestinal: Yes: Normal Bowel Sounds, Soft Extremities: Yes: Other (left hand laceration erythemaouts and tender to touch) Edema: No Wound/Incision: Yes: Sutures Removed Neurological: Yes: Alert, Oriented Labs: CBC, BMP 03/25/18 07:05 03/27/18 08:00 Discharge Summary Reason For Visit: URINARY TRACT INFECTION, WEAKNESS, FALL Current Active Problems Afib (Acute) Diabetes (Acute) Frequent falls (Acute) HTN (hypertension) (Acute) Laceration of wrist, left (Acute) Lumbar radiculopathy (Acute) UTI (urinary tract infection) (Acute) Hospital Course: 03/19/18 09:31 CC: S/p fall HPI: The patient is a 87 year old female, with a significant past medical history of Afib (s/p pacemaker on Eliquis), sciatica, neuropathy, CAD, DM, HTN, and HLD, who presents to the emergency department s/p fall with, pain to the right hip and left wrist. As per patient, she was getting up out of bed this morning when she felt week in her bilateral lower extremities falling and subsequently hitting her head, right hip, and lacerating her left wrist. At this time, she experienced urinary incontinence is unaware if she lost consciousness. She denies any tongue biting. She denies recent fevers, chills, or dizziness. She denies recent nausea, vomit, diarrhea or constipation. She denies recent dysuria, frequency, urgency or hematuria. She denies recent chest pain or shortness of breath. Allergies: NKDA Past surgical history: S/p pacemaker. Hysterectomy. Social history: Nonsmoker. Denies EtOH use and recreational drug use. Primary Care Physician: Dr. Pinzon Sugar Grinder: Dr. Khan afib on dig and metoprolol and eliquis s/p fal PT/OT at [facility] MRO shows dics disease EMG show radiculopathy parkinson on sinemet DM on insulin hgba1c is 9.7 wirst laceration will start keflex Condition: Improved - Instructions Referrals: John Pinzon MD [Primary Care Provider] - Disposition: [facility] - Home Medications Comprehensive Discharge Medication List: Ambulatory Orders Amlodipine Besylate [Norvasc -] 10 mg PO DAILY #30 tablet 01/01/15 Atorvastatin Ca [Lipitor] 40 mg PO HS 03/19/18 Carbidopa/Levodopa [Carbidopa-Levodopa 25-100 Tab] 1 each PO TID 03/19/18 Insulin Glargine,Hum.rec.anlog [Lantus] 30 unit SQ HS 03/19/18 Oxybutynin Chloride 5 mg PO BID 03/19/18 Sitagliptin Phosphate [Januvia] 50 mg PO DAILY 03/19/18 Acetaminophen [Tylenol .Regular Strength -] 650 mg PO Q6H PRN tablet 03/24/18 Apixaban [Eliquis -] 5 mg PO BID tablet 03/24/18 Digoxin [Lanoxin -] 0.125 mg PO DAILY tablet 03/24/18 Insulin Sliding Scale [Novolog Vial Sliding Scale -] 1 vial SQ [facility] units Metoprolol Succinate [Toprol XL -] 100 mg PO BID tab.sr.24h 03/24/18
--- NOTE | 2018-03-29 12:27 | PN ---
Progress Note, Physician Chief Complaint: patient seen and examined left wrist laceration seen erythematous - Current Medication List Current Medications: Active Medications Acetaminophen (Tylenol -) 650 mg PO Q4H PRN PRN Reason: PAIN Last Admin: 03/29/18 06:07 Dose: 650 mg Apixaban (Eliquis -) 5 mg PO BID [facility] Last Admin: 03/29/18 09:29 Dose: 5 mg Atorvastatin Calcium (Lipitor -) 20 mg PO HS [facility] Last Admin: 03/28/18 22:43 Dose: 20 mg Carbidopa/Levodopa (Sinemet 25/100 -) 1 each PO TID [facility] Last Admin: 03/29/18 06:02 Dose: 1 each Cephalexin HCl (Keflex -) 500 mg PO BID [facility] Clotrimazole (Lotrisone Cream (Small Tube)) 1 applic TP BID [facility] Last Admin: 03/29/18 09:30 Dose: 1 applic Digoxin (Lanoxin -) 0.125 mg PO DAILY [facility] Last Admin: 03/29/18 09:29 Dose: 0.125 mg Duloxetine HCl (Cymbalta -) 20 mg PO DAILY [facility] Last Admin: 03/29/18 09:30 Dose: 20 mg Insulin Aspart (Novolog Vial Sliding Scale -) 1 vial SQ [facility]; Protocol Last Admin: 03/28/18 22:55 Dose: 2 units Insulin Aspart (Novolog Vial Sliding Scale -) 1 vial SQ TIDAC [facility]; Protocol Last Admin: 03/29/18 12:23 Dose: Not Given Insulin Detemir (Levemir Vial) 30 units SQ [facility] Last Admin: 03/28/18 22:39 Dose: 30 units Metoprolol Succinate (Toprol Xl -) 100 mg PO BID [facility] Last Admin: 03/29/18 09:30 Dose: 100 mg Mupirocin (Bactroban 2% Ointment -) 1 applic TP BID [facility] Oxybutynin Chloride (Ditropan -) 5 mg PO BID [facility] Last Admin: 03/29/18 09:30 Dose: 5 mg Polyethylene Glycol (Miralax (For Daily Use) -) 17 gm PO BID [facility] Last Admin: 03/29/18 09:30 Dose: 17 gm Sitagliptin Phosphate (Januvia -) 100 mg PO 0700 [facility] Last Admin: 03/29/18 06:02 Dose: 100 mg Tamsulosin HCl (Flomax -) 0.4 mg PO DAILY@0830 [facility] Last Admin: 03/29/18 08:43 Dose: 0.4 mg - Objective Vital Signs: Vital Signs Temperature 97.8 F 03/29/18 08:40 Pulse Rate 63 03/29/18 09:29 Respiratory Rate 20 03/29/18 08:40 Blood Pressure 110/70 03/29/18 08:40 O2 Sat by Pulse Oximetry (%) 95 03/29/18 09:00 Constitutional: Yes: Calm Cardiovascular: Yes: Regular Rate and Rhythm, S1, S2 Respiratory: Yes: CTA Bilaterally Gastrointestinal: Yes: Normal Bowel Sounds, Soft Edema: No Labs: CBC, BMP 03/25/18 07:05 03/27/18 08:00 INR, PTT INR 1.11 (0.83-1.09) H 03/19/18 09:00 Problem List - Problems (1) Frequent falls Assessment/Plan: carotid doppler negative ct head negative EMG bilateral S1 radiculopathies no polymyopathy or neuropathy will get ct lumbar spine to r/o L3L4 stenosis will need snf placement-strenghtening PT/OT Code(s): R29.6 - REPEATED FALLS (2) Afib Assessment/Plan: eliquis toprol and digoxin Code(s): I48.91 - UNSPECIFIED ATRIAL FIBRILLATION (3) Diabetes Assessment/Plan: levemir hga1c noted -9.7 sliding scale januvia Code(s): E11.9 - TYPE 2 DIABETES MELLITUS WITHOUT COMPLICATIONS Qualifiers: Diabetes mellitus type: type 2 (4) Lumbar radiculopathy Assessment/Plan: lumbar spine ct scan to look for L3-L4 stenosis on neurontin Code(s): M54.16 - RADICULOPATHY, LUMBAR REGION (5) HTN (hypertension) Assessment/Plan: norvasc Code(s): I10 - ESSENTIAL (PRIMARY) HYPERTENSION Assessment/Plan dc to snf keflex 500mg po bid for 7 days
[2018-03-29] MEDS ORDERED: MUPIROCIN 2% TOPICAL OINTMENT 22 GM TUBE TP SCH (12:30)
[2018-03-29] MEDS ORDERED: CEPHALEXIN MONOHYDRATE 500 MG CAPSULE (UD) PO SCH (12:30)
[2018-03-29 17:02] VITALS: BP 149/86; PULSE 70; TEMP 99.8
[2018-03-30 19:50] VITALS: BMI 30.9
== END 2018-03-29 15:46 | DRG 552 ==
LOC: JER 08:15 → JERBED 11:39 → J6S 14:52
PROVIDERS: ADMIT Family Medicine; ATTEND Family Medicine
PROC: 0HQEXZZ Repair Left Lower Arm Skin, External Approach (ICD-10-PCS; principal; 2018-03-19)
DX: M48.061 Spinal stenosis, lumbar region without neurogenic claudication (principal); N39.0 Urinary tract infection, site not specified; I48.91 Unspecified atrial fibrillation; S61.512A Laceration without foreign body of left wrist, initial encounter; I25.10 Atherosclerotic heart disease of native coronary artery without angina pectoris; E11.40 Type 2 diabetes mellitus with diabetic neuropathy, unspecified; M54.16 Radiculopathy, lumbar region; F32.9 Major depressive disorder, single episode, unspecified; E86.0 Dehydration; Z95.0 Presence of cardiac pacemaker; G20 Parkinson's disease; M54.30 Sciatica, unspecified side; Z79.01 Long term (current) use of anticoagulants; E78.5 Hyperlipidemia, unspecified; R29.6 Repeated falls; R33.8 Other retention of urine; R00.0 Tachycardia, unspecified; I35.0 Nonrheumatic aortic (valve) stenosis; I10 Essential (primary) hypertension; Z86.718 Personal history of other venous thrombosis and embolism; R29.703 NIHSS score 3; Z79.4 Long term (current) use of insulin; W18.30XA Fall on same level, unspecified, initial encounter; Y93.89 Activity, other specified; Y92.092 Bedroom in other non-institutional residence as the place of occurrence of the external cause; Y99.8 Other external cause status
CPT/HCPCS: 36415; 70450-TC; 71045-TC-FY; 72125-TC; 72131-TC; 73110-TC-LR-FY; 73130-TC-LR-FY; 73523-TC-FY; 74019-TC-FY; 80048; 80053; 80061; 80162; 81003; 81015; 82550; 82607; 82746; 82962; 83036; 83721; 83735; 84439; 84443; 84484; 85025; 85027; 85610; 85730; 87040; 87086; 90715; 93005; 93010; 93306-TC; 93880-TC; 93970-TC; 97116-GP; 97162-GP; 99283-25; J3480